=== PATIENT | female | born 2000 | race Caucasian/White ===

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

== ENCOUNTER 2022-01-02 11:27 | Emergency (ER) | payer OTHER, MEDICAID, SELFPAY ==
[2022-01-02 11:28] VITALS: BP 170/110; PULSE 88; RESP 14; TEMP 37.3; O2SAT 98; BMI 40.3
--- NOTE | 2022-01-02 12:14 | ED_ITS ---
HPI - Female Genitourinary <SONDRA Rausch - Last Filed: 01/02/22 15:33> General Chief complaint: Vaginal Bleeding Stated complaint: Heavy cramping/ vaginal bleeding Time Seen by Provider: 01/02/22 12:02 Source: patient Mode of arrival: Ambulatory History of Present Illness HPI Narrative: 21-year-old female presents to the emergency department complaining of vaginal bleeding which started this morning and she finished her menses 7 days ago. Patient is just getting over a viral illness, likely COVID without testing positive, and continues to have some symptoms including congestion, cough, some fatigue. She is not on any control, is sexually active, does not have a woman's health provider. She states she goes to the walk-in clinic in [place] but has to wait a long time, and she only goes there when she needs plan B. Patient denies any vaginal itching, foul odor, or vaginal pain. Related Data Previous Rx's Medication Instructions Recorded clindamycin HCl 150 mg capsule 450 mg PO TID #63 cap 04/03/21 ibuprofen 800 mg tablet 800 mg PO Q8H PRN #20 tab 04/03/21 fluticasone propionate 50 1 spray INTRANASAL DAILY #16 g 08/31/21 mcg/actuation nasal spray,suspension (Flonase Allergy Relief) ondansetron HCl 4 mg tablet 4 mg PO Q6-8H #10 tab 08/31/21 (Zofran) ondansetron HCl 4 mg tablet 4 mg PO Q6-8H #7 tab 08/31/21 (Zofran) nitrofurantoin 100 mg PO BID #14 cap 11/19/21 monohydrate/macrocrystals 100 mg capsule (Macrobid) dextromethorphan-guaifenesin 5 10 ml PO Q8H PRN #118 ml 12/24/21 mg-100 mg/5 mL oral liquid (Robitussin Cough-Chest Congestion DM) Allergies Allergy/AdvReac Type Severity Reaction Status Date / Time Penicillins [PENICILLINS] Allergy Unknown Anaphylaxis Verified 01/02/22 11:33 CILLINS Allergy Unknown Cough Uncoded 12/22/21 02:28 Review of Systems <SONDRA Rausch - Last Filed: 01/02/22 15:33> Review of Systems Narrative: General: denies fever, chills, malaise, sweats, fatigue Head/Neck: denies headache, neck pain, dizziness Eyes: denies visual changes, eye pain Cardio: denies chest pain, palpitations, edema Respiratory: denies dyspnea, cough, orthopnea GI: denies abdominal pain, nausea, vomiting, or diarrhea : denies dysuria, hematuria, urinary retention, frequency or incontinence, endorses brown vaginal bleeding today with menses 1 week ago. MSK: denies joint pain, muscle weakness Skin: denies rash, itching, skin lesions or other Neuro: denies numbness, tingling Patient History <SONDRA Rausch - Last Filed: 01/02/22 15:33> Medical History Healthy adolescent Nephrolithiasis Surgical History No history of previous surgery tobacco type: cigarettes and vaping alcohol intake frequency: holidays/special occasions only Substance Use Type: marijuana Exam <SONDRA Rausch - Last Filed: 01/02/22 15:33> Narrative Exam Narrative: Independently reviewed vitals signs and nursing notes. General: Cooperative, comfortable, in no acute distress, well developed and well groomed Head/Neck: Normal visual inspection and supple, atraumatic, no JVD or lymphadenopathy. Normal facial exam Eyes: Pupils equal round and reactive, EOMI, conjunctiva normal, no scleral icterus or injections Nose: External nose normal, nares patent, no rhinorrhea, without purulent drainage Mouth/Throat: uvula midline, moist mucus membranes Cardio: Regular rate and rhythm, no peripheral edema, warm extremities Respiratory: Normal respiratory effort, able to speak in complete sentences without audible wheezing, stridor, or rales. No retractions. GI: Abdomen soft, nontender to palpation x4 quadrants, nondistended, no masses or exquisite tenderness with exam, no flank tenderness MSK: Moves all extremities, neurovascularly intact Skin: Normal capillary refill, no rash Neuro: Normal speech and cognition, normal gait, A&O x3, tone normal, moves all extremities Psych: Mental status is grossly normal, speech is clear, congruent mood, normal affect Initial Vital Signs Initial Vital Signs: Vital Signs Temperature 99.1 F 01/02/22 11:28 Pulse Rate 88 01/02/22 11:28 Respiratory Rate 14 01/02/22 11:28 Blood Pressure 170/110 H 01/02/22 11:28 Pulse Oximetry 98 01/02/22 11:28 <Elvis Edouard DO - Last Filed: 01/02/22 16:23> Initial Vital Signs Initial Vital Signs: Vital Signs Temperature 99.1 F 01/02/22 11:28 Pulse Rate 88 01/02/22 11:28 Respiratory Rate 14 01/02/22 11:28 Blood Pressure 170/110 H 01/02/22 11:28 Pulse Oximetry 98 01/02/22 11:28 Course <SONDRA aRusch - Last Filed: 01/02/22 15:33> Orders Ordered: ED Orders 01/02/22 12:05 Urinalysis and Microscopic Stat Vital Signs Vital signs: Vital Signs - 8 hr 01/02/22 11:28 Temperature 99.1 F Pulse Rate 88 Respiratory Rate 14 Blood Pressure 170/110 H Pulse Oximetry 98 <Elvis Edouard DO - Last Filed: 01/02/22 16:23> Orders Ordered: ED Orders 01/02/22 12:05 Urinalysis and Microscopic Stat Vital Signs Vital signs: Vital Signs - 8 hr 01/02/22 11:28 Temperature 99.1 F Pulse Rate 88 Respiratory Rate 14 Blood Pressure 170/110 H Pulse Oximetry 98 MDM - Female Genitourinary <SONDRA Rausch - Last Filed: 01/02/22 15:33> MDM Narrative Medical decision making narrative: 21-year-old female presents emergency department with complaint of brown vaginal bleeding today with normal menstrual cycle ending 1 week ago. Patient denies any foul odor, vaginal pain, itching or bright red blood. Patient is not on control and is sexually active. Patient was seen 2 times earlier this month for a viral illness, discussed irregular cycle may be due to illness, this could be old blood because it was dark brown. Patient does not have women's health care provider or primary care provider. She was given a referral to [facility] and instructed to establish care and discuss her goals for family planning. Patient occasionally uses plan B she says but does not take any control. Urine and UA completed, was negative, UA was negative for signs of infection, leukocytes, blood or other. Instructed patient to stay hydrated, eat a variety of foods, keep track of her menstrual cycle, and follow-up with primary care. She declined the need for pain medication and was instructed to use ibuprofen and/or Tylenol as needed for her menstrual cramping. Patient is appropriate and amenable to discharge home. Vital signs are stable on repeat examination is unremarkable. Patient has been informed of results. Patient has been given strict return to ER precautions for any new or worsening symptoms. Patient understands to follow up closely with outpatient providers as instructed. Patient understands plan and agrees to discharge home. All questions and concerns answered at this time. Discharge Plan Departure Patient Disposition: Home Clinical Impression: Irregular menstrual bleeding Instructions: DI for Dysmenorrhea, DI for Menorrhagia, DI for Vaginal Bleeding Activity Restrictions/Additional Instructions: *You have been diagnosed with vaginal bleeding outside your normal menstrual cycle. This happens sometimes after illness, or if you have polycystic ovaries, endometriosis, or sometimes infection. Since you do not have any signs of infection at this time, this is likely due to your recent illness. Your test was negative. Please follow-up with [facility] and establish care with Dr. Isabel or Dr. Washington for [facility] care, or you may make an appointment with any physician taking new patients for [facility]. Please call [phone] to make an appointment. Please take ibuprofen every 6 hours as needed for your menstrual cramping. Please stay hydrated and drink fluids with electrolytes in them. Light activity has shown to help menstrual cramping pain. I hope you feel better soon, please follow-up with primary care. *What to do: *Please continue to take your regular medications as directed. [ ] New medication prescriptions sent to your pharmacy: [ ] [ ] New medication written as a paper prescription [x ] No new medications given *Please follow up with your primary care provider in 2-3 days, call for an appointment. Let them know you were seen in the Emergency Department and that we ask that you be seen in follow up. We will electronically transmit a record of today's note if your PCP is in our system *If you do not have a primary care provider please contact the [facility] Resource line at [phone]. They will ask some questions about your medical history and help get you set up with a doctor in the community. *Return to Emergency Department if you should have any new, worsening or concerning symptoms, such as [fever greater than 101F, chills, worsening pain, persistent vomiting or other bothersome symptoms] Prescriptions: No Action ibuprofen 800 mg tablet 800 mg PO Q8H PRN (Reason: pain) Qty: 20 0RF clindamycin HCl 150 mg capsule 450 mg PO TID Qty: 63 0RF nitrofurantoin monohyd/m-cryst [Macrobid] 100 mg capsule 100 mg PO BID Qty: 14 0RF Rx Instructions: must administer with a meal/food Robitussin Cough-Chest Steven DM 5-100 mg/5 mL liquid 10 ml PO Q8H PRN (Reason: cough) Qty: 118 0RF ondansetron HCl [Zofran] 4 mg tablet 4 mg PO Q6-8H Qty: 7 0RF fluticasone propionate [Flonase Allergy Relief] 50 mcg/actuation spray,suspension 1 spray intranasal DAILY Qty: 16 0RF Rx Instructions: administer into each nostril ondansetron HCl [Zofran] 4 mg tablet 4 mg PO Q6-8H Qty: 10 0RF Referrals: Beth Isabel MD [Physician] - <Elvis Edouard, - Last Filed: 01/02/22 16:23> [facility] Dr Edouard Co-Sign Statement: I was available for consultation during this patient's emergency department visit. This chart is signed by myself for administrative purposes only. I did not have direct contact with this patient during this visit. They were seen independently by the APC.
== END 2022-01-02 12:36 | disposition home or self-care (01) ==
PROVIDERS: Emergency Provider Nurse Practitioner Critical Care Medicine
DX: N93.9 Abnormal uterine and vaginal bleeding, unspecified (principal)
CPT/HCPCS: 99281

== ENCOUNTER 2022-01-08 18:33 | Emergency (ER) | payer OTHER, MEDICAID, SELFPAY ==
[2022-01-08 19:05] VITALS: BP 151/89; PULSE 94; RESP 14; TEMP 36.9; O2SAT 100; BMI 40.3
[2022-01-08] MEDS: TETRACAINE/BENZOCAINE/BUTAMBEN (CETACAINE) BOTTLE 1 SPRAY TOP (20:01)
--- NOTE | 2022-01-08 20:17 | ED_ITS ---
HPI - URI/Sore Throat <Patti Mcghee, [facility] - Last Filed: 01/08/22 20:25> General Chief Complaint: Upper Respiratory Symptoms Stated Complaint: Something lodged in throat x14 days Time Seen by Provider: 01/08/22 18:55 Source: patient Mode of arrival: Ambulatory History of Present Illness HPI Narrative: 21-year-old female presents to the emergency department complaining of foreign body sensation in her throat for 13 days. She denies any known foreign body or what it could be but states the sensation has not improved and continues to be bothersome. She denies any sore throat, shortness of breath, wheezing, fever, vomiting, noisy breathing. She endorses that she had salmon approximately 10 days ago but does not think a bone could be stuck in there, denies any other bone possibilities that could be in her throat. She states that she is trying to find a primary care provider and has tried [address], [facility], and [place] and she is having difficulty find a primary care provider who accepts her insurance. She states she has [employer] insurance with [employer]. Related Data Previous Rx's Medication Instructions Recorded clindamycin HCl 150 mg capsule 450 mg PO TID #63 cap 04/03/21 ibuprofen 800 mg tablet 800 mg PO Q8H PRN #20 tab 04/03/21 fluticasone propionate 50 1 spray INTRANASAL DAILY #16 g 08/31/21 mcg/actuation nasal spray,suspension (Flonase Allergy Relief) ondansetron HCl 4 mg tablet 4 mg PO Q6-8H #10 tab 08/31/21 (Zofran) ondansetron HCl 4 mg tablet 4 mg PO Q6-8H #7 tab 08/31/21 (Zofran) nitrofurantoin 100 mg PO BID #14 cap 11/19/21 monohydrate/macrocrystals 100 mg capsule (Macrobid) dextromethorphan-guaifenesin 5 10 ml PO Q8H PRN #118 ml 12/24/21 mg-100 mg/5 mL oral liquid (Robitussin Cough-Chest Congestion DM) Allergies Allergy/AdvReac Type Severity Reaction Status Date / Time Penicillins [PENICILLINS] Allergy Unknown Anaphylaxis Verified 01/08/22 19:10 CILLINS Allergy Unknown Cough Uncoded 12/22/21 02:28 Review of Systems <SONDRA Rausch - Last Filed: 01/08/22 20:25> Review of Systems Narrative: General: denies fever, chills, malaise, sweats, fatigue Head/Neck: denies headache, neck pain, dizziness, endorses foreign body sensation in throat Eyes: denies visual changes, eye pain Cardio: denies chest pain, palpitations, edema Respiratory: denies dyspnea, cough, orthopnea GI: denies abdominal pain, nausea, vomiting, or diarrhea : denies dysuria, hematuria, urinary retention, frequency or incontinence MSK: denies joint pain, muscle weakness Skin: denies rash, itching, skin lesions or other Neuro: denies numbness, tingling Patient History <SONDRA Rausch - Last Filed: 01/08/22 20:25> Medical History Healthy adolescent Nephrolithiasis Surgical History No history of previous surgery Social History Smoking Status: Current every day smoker Smoking Status: Current every day smoker tobacco type: cigarettes and vaping alcohol intake frequency: holidays/special occasions only Substance Use Type: marijuana Exam <SONDRA Rausch - Last Filed: 01/08/22 20:25> Narrative Exam Narrative: Independently reviewed vitals signs and nursing notes. General: Cooperative, comfortable, in no acute distress, well developed and well groomed Head/Neck: Normal visual inspection and supple, atraumatic. No submental or anterior cervical tenderness, no palpated abscess or lymphadenopathy. Eyes: Pupils equal round and reactive, EOMI, conjunctiva normal, no scleral icterus or injections Nose: External nose normal, nares patent, no rhinorrhea, without purulent drainage Mouth/Throat: uvula midline, moist mucus membranes Cardio: Regular rate and rhythm, no peripheral edema, warm extremities Respiratory: Normal respiratory effort, able to speak in complete sentences without audible wheezing, stridor, or rales. No retractions. GI: Abdomen soft MSK: Moves all extremities, neurovascularly intact Skin: Normal capillary refill, no rash Neuro: Normal speech and cognition, normal gait, A&O x3, tone normal, moves all extremities Psych: Mental status is grossly normal, speech is clear, congruent mood, normal affect Initial Vital Signs Initial Vital Signs: Vital Signs Temperature 98.4 F 01/08/22 19:05 Pulse Rate 94 H 01/08/22 19:05 Respiratory Rate 14 01/08/22 19:05 Blood Pressure 151/89 H 01/08/22 19:05 Pulse Oximetry 100 01/08/22 19:05 <Bette Nguyen MD - Last Filed: 01/09/22 00:33> Narrative Exam Narrative: Independently reviewed vitals signs and nursing notes. General: Cooperative, comfortable, in no acute distress, well developed and well groomed Head/Neck: Normal visual inspection and supple, atraumatic. No submental or anterior cervical tenderness, no palpated abscess or lymphadenopathy. Eyes: Pupils equal round and reactive, EOMI, conjunctiva normal, no scleral icterus or injections Nose: External nose normal, nares patent, no rhinorrhea, without purulent drainage Mouth/Throat: uvula midline, moist mucus membranes Cardio: Regular rate and rhythm, no peripheral edema, warm extremities Respiratory: Normal respiratory effort, able to speak in complete sentences without audible wheezing, stridor, or rales. No retractions. GI: Abdomen soft MSK: Moves all extremities, neurovascularly intact Skin: Normal capillary refill, no rash Neuro: Normal speech and cognition, normal gait, A&O x3, tone normal, moves all extremities Psych: Mental status is grossly normal, speech is clear, congruent mood, normal affect [place] scope was used to visualize the posterior pharynx and larynx without any foreign body visible, uvula was midline, no tonsillar adenopathy or exudate, posterior pharynx was moist, not erythematous, without lesion or edema Initial Vital Signs Initial Vital Signs: Vital Signs Temperature 98.4 F 01/08/22 19:05 Pulse Rate 94 H 01/08/22 19:05 Respiratory Rate 14 01/08/22 19:05 Blood Pressure 151/89 H 01/08/22 19:05 Pulse Oximetry 100 01/08/22 19:05 Course <SONDRA Rausch - Last Filed: 01/08/22 20:25> Orders Ordered: Discontinued Medications Benzocaine/Butamben/Tetracaine HCl (Tetracaine/Benzocaine/Butamben (Cetacaine) Bottle) 1 spray TOP NOW ONE Stop: 01/08/22 19:29 Last Admin: 01/08/22 20:01 Dose: 1 spray Documented by: BTONER Vital Signs Vital signs: Vital Signs - 8 hr 01/08/22 19:05 Temperature 98.4 F Pulse Rate 94 H Respiratory Rate 14 Blood Pressure 151/89 H Pulse Oximetry 100 <Bette Nguyen MD - Last Filed: 01/09/22 00:33> Orders Ordered: Discontinued Medications Benzocaine/Butamben/Tetracaine HCl (Tetracaine/Benzocaine/Butamben (Cetacaine) Bottle) 1 spray TOP NOW ONE Stop: 01/08/22 19:29 Last Admin: 01/08/22 20:01 Dose: 1 spray Documented by: BTONER Vital Signs Vital signs: Vital Signs - 8 hr 01/08/22 19:05 Temperature 98.4 F Pulse Rate 94 H Respiratory Rate 14 Blood Pressure 151/89 H Pulse Oximetry 100 MDM - URI/Sore Throat <SONDRA Rausch - Last Filed: 01/08/22 20:25> MDM Narrative Medical decision making narrative: 20-year-old female presents to the emergency department with chief complaint of foreign body sensation in her throat for 13 days. Patient has had multiple visits to the emergency department over the last couple of months because she is having difficulty finding a primary care provider. Patient endorses history of depression in her family and she also has had depressive symptoms in the past. [place] scope was used to visualize the posterior pharynx and larynx without any foreign body visible, uvula was midline, no tonsillar adenopathy or exudate, posterior pharynx was moist, not erythematous, without lesion or edema. Discussion with patient about history of depression and family history of depression and assessed if patient is interested in any medication for this while she is looking for a primary care provider. Patient states that she we would like to think about that and she was given a referral to [facility] for primary care. Patient is pleasant, is appreciative of this, no dangerous pathology was found today on exam. Patient was reassured, recommend tea with honey, liquids, ibuprofen or Tylenol as needed for pain. She has an upcoming appointment with [facility] and will be trying to make an appointment with primary care soon. Patient denies any homicidal or suicidal ideation or intent to harm self. Patient is appropriate and amenable to discharge home. Vital signs are stable on repeat examination is unremarkable. Patient has been informed of results. Patient has been given strict return to ER precautions for any new or worsening symptoms. Patient understands to follow up closely with outpatient providers as instructed. Patient understands plan and agrees to discharge home. All questions and concerns answered at this time. Discharge Plan Departure Patient Disposition: Home Clinical Impression: Globus hystericus Activity Restrictions/Additional Instructions: Janneth, thank you for trusting us with your care, thank you for continuing to try to help take care of yourself the best that you are able. The emergency department is always here if you need care. Please call [phone] and asked to establish a primary care provider. At that time it may be good to discuss your mental health and how you are doing at that time. Medication may help reduce some of the high, highs and low, lows so that you can get back in control. He can try honey in your tea which may help that feeling in your throat, practice relaxation therapy, try ibuprofen and see if it helps reduce that sensation as well. Luckily, there is nothing dangerous in your throat. I hope you feel better soon, thank you for coming in. It was nice to see you again and you look well. *What to do: *Please continue to take your regular medications as directed. [ ] New medication prescriptions sent to your pharmacy: [ ] [ ] New medication written as a paper prescription [ ] No new medications given *Please follow up with your primary care provider in 2-3 days, call for an appointment. Let them know you were seen in the Emergency Department and that we ask that you be seen in follow up. We will electronically transmit a record of today's note if your PCP is in our system *If you do not have a primary care provider please contact the [facility] Resource line at (xxxx) see above. They will ask some questions about your medical history and help get you set up with a doctor in the community. *Return to Emergency Department if you should have any new, worsening or concerning symptoms, such as [fever greater than 101F, chills, worsening pain, persistent vomiting or other bothersome symptoms] Prescriptions: No Action ibuprofen 800 mg tablet 800 mg PO Q8H PRN (Reason: pain) Qty: 20 0RF clindamycin HCl 150 mg capsule 450 mg PO TID Qty: 63 0RF nitrofurantoin monohyd/m-cryst [Macrobid] 100 mg capsule 100 mg PO BID Qty: 14 0RF Rx Instructions: must administer with a meal/food Robitussin Cough-Chest Steven DM 5-100 mg/5 mL liquid 10 ml PO Q8H PRN (Reason: cough) Qty: 118 0RF ondansetron HCl [Zofran] 4 mg tablet 4 mg PO Q6-8H Qty: 7 0RF fluticasone propionate [Flonase Allergy Relief] 50 mcg/actuation spray,suspension 1 spray intranasal DAILY Qty: 16 0RF Rx Instructions: administer into each nostril ondansetron HCl [Zofran] 4 mg tablet 4 mg PO Q6-8H Qty: 10 0RF <Bette Nguyen MD - Last Filed: 01/09/22 00:33> Cosign ED Att[facility]: I was immediately available in the department for consultation throughout this patient's visit. I agree with documentation as above. Bette Nguyen MD
== END 2022-01-08 20:00 | disposition home or self-care (01) ==
PROVIDERS: Emergency Provider Nurse Practitioner Critical Care Medicine
DX: F45.8 Other somatoform disorders (principal)
CPT/HCPCS: 99282; 99283

== ENCOUNTER 2022-02-10 13:55 | Emergency (ER) | payer OTHER, MEDICAID, SELFPAY ==
[2022-02-10 14:21] VITALS: BP 186/110; PULSE 77; RESP 17; TEMP 36.8; O2SAT 98; BMI 40.3
[2022-02-10 16:31] LABS: Appearance Urine UA SL CLOUDY; Bilirubin Urine UA NEGATIVE (NEGATIVE); Color Urine UA YELLOW; Glucose Urine UA NEGATIVE (Negative); Ketones Urine UA NEGATIVE (NEGATIVE); Leukocyte Esterase Urine UA 2+ (NEGATIVE); Nitrite Urine UA NEGATIVE (Negative); Occult Blood Urine UA 3+ (Negative); Protein Urine UA NEGATIVE (Negative); Specific Gravity Urine UA <=1.005 (1.000-1.035); Urobilinogen Urine UA 0.2 E.U./dL (0.2)
[2022-02-10 16:46] LABS: Bacteria Urine Few (2-10); Culture Indicated Urine Specimen Cultured; RBC Urine 1-5/HPF (0-5/HPF); Squamous Epithelial Cell Urine 1-5 /HPF (0-5/HPF); Transitional Epi Cells Urine 1-5/HPF (0-5/HPF); Urine Comments FEW CLUE CELLS; WBC Urine 10-30/HPF (0-5/HPF)
--- NOTE | 2022-02-10 17:28 | ED.NAVMDI ---
HPI - Nausea/Vomiting/Diarrhea <SONDRA Rausch - Last Filed: 02/10/22 20:54> General Chief complaint: Nausea/Vomiting/Diarrhea Stated complaint: Dizzy, nauseas, low blood sugar Time Seen by Provider: 02/10/22 17:28 Source: patient Mode of arrival: Ambulatory History of Present Illness HPI Narrative: 21-year-old female presents to the emergency department complaining of dysuria, abdominal discomfort, UTI for approximately 2 months she states. Patient has been seen in the emergency department multiple times, and 4 times by myself for various complaints. Patient is in the process of establishing a primary care provider and states she has the information and will be scheduling appointment soon. Patient is low income, and was recently seen in the emergency department for globus hystericus, she states she still having difficulty swallowing pills and was waiting until this coming Thursday when she gets paid by some yogurt so that she could grind her pills and be able to swallow them. Patient states that she has nausea without vomiting, states that she has been feeling poorly for the last 1-2 months. She denies any fever, she denies any blood in her urine or her stool, she denies any changes to her stool. She denies any abdominal pain. Related Data Previous Rx's Medication Instructions Recorded ondansetron HCl 4 mg tablet 4 mg PO Q6-8H #7 tab 08/31/21 (Zofran) nitrofurantoin 100 mg PO BID #14 cap 11/19/21 monohydrate/macrocrystals 100 mg capsule (Macrobid) metronidazole 500 mg tablet 500 mg PO BID 7 Days #14 tab 02/10/22 sulfamethoxazole 800 1 tab PO BID 7 Days #14 tab 02/10/22 mg-trimethoprim 160 mg tablet (Bactrim DS) Allergies Allergy/AdvReac Type Severity Reaction Status Date / Time Penicillins [PENICILLINS] Allergy Unknown Anaphylaxis Verified 01/08/22 19:10 CILLINS Allergy Unknown Cough Uncoded 12/22/21 02:28 Review of Systems <SONDRA Rausch - Last Filed: 02/10/22 20:54> Review of Systems Narrative: General: denies fever, chills, malaise, sweats, fatigue Head/Neck: denies headache, neck pain, dizziness Eyes: denies visual changes, eye pain Cardio: denies chest pain, palpitations, edema Respiratory: denies dyspnea, cough, orthopnea GI: denies abdominal pain, nausea, vomiting, or diarrhea : Endorses dysuria, and vaginal pain without hematuria, urinary retention, frequency or incontinence MSK: denies joint pain, muscle weakness Skin: denies rash, itching, skin lesions or other Neuro: denies numbness, tingling Patient History <SONDRA Rausch - Last Filed: 02/10/22 20:54> Medical History Healthy adolescent Nephrolithiasis Surgical History No history of previous surgery Social History Smoking Status: Current every day smoker Smoking Status: Current every day smoker tobacco type: cigarettes and vaping alcohol intake frequency: holidays/special occasions only Substance Use Type: does not use Exam <SONDRA Rausch - Last Filed: 02/10/22 20:54> Narrative Exam Narrative: Independently reviewed vitals signs and nursing notes. General: cooperative, comfortable, in no acute distress, well developed and well groomed, obese Head: atraumatic, symmetrical facial expressions Neck: supple, atraumatic, without lymphadenopathy. Eyes: pupils equal round and reactive, EOMI, conjunctiva normal Nose: nares patent, no rhinorrhea Mouth/Throat: uvula midline, moist mucus membranes Cardiovascular: regular rate and rhythm, no peripheral edema, warm extremities Respiratory: normal effort, able to speak in complete sentences, no audible wheezing, stridor, or rales. No retractions or tachypnea. GI: abdomen soft, nontender to palpation, nondistended, no masses, no exquisite tenderness with exam, without guarding or rebound. MSK: moves all extremities, ambulatory w/steady gait, neurovascularly intact, no weakness Skin: brisk capillary refill, no rash, no erythema Neuro: normal speech and cognition, A&O x3, normal tone Psych: mental status is grossly normal, congruent mood, normal affect, pleasant and cooperative Initial Vital Signs Initial Vital Signs: Vital Signs Temperature 98.3 F 02/10/22 14:21 Pulse Rate 77 02/10/22 14:21 Respiratory Rate 17 02/10/22 14:21 Blood Pressure 186/110 H 02/10/22 14:21 Pulse Oximetry 98 02/10/22 14:21 <Amanda Salcido DO - Last Filed: 02/11/22 07:57> Initial Vital Signs Initial Vital Signs: Vital Signs Temperature 98.3 F 02/10/22 14:21 Pulse Rate 77 02/10/22 14:21 Respiratory Rate 17 02/10/22 14:21 Blood Pressure 186/110 H 02/10/22 14:21 Pulse Oximetry 98 02/10/22 14:21 Course <EMILY RauschP - Last Filed: 02/10/22 20:54> Orders Ordered: Discontinued Medications Metronidazole (Metronidazole 500 Mg Tablet) 500 mg PO NOW ONE Stop: 02/10/22 17:51 Last Admin: 02/10/22 18:00 Dose: 500 mg Documented by: SIERRA Trimethoprim/Sulfamethoxazole (Trimeth/Sulfa 160/800 (Ds) Tablet) 1 tab PO NOW ONE Stop: 02/10/22 17:38 Last Admin: 02/10/22 18:00 Dose: 1 tab Documented by: SIERRA Vital Signs Vital signs: Vital Signs - 8 hr 02/10/22 14:21 02/10/22 18:30 Temperature 98.3 F Pulse Rate 77 72 Respiratory Rate 17 16 Blood Pressure 186/110 H 165/106 H Pulse Oximetry 98 100 <Amanda Salcido DO - Last Filed: 02/11/22 07:57> Orders Ordered: Discontinued Medications Metronidazole (Metronidazole 500 Mg Tablet) 500 mg PO NOW ONE Stop: 02/10/22 17:51 Last Admin: 02/10/22 18:00 Dose: 500 mg Documented by: SIERRA Trimethoprim/Sulfamethoxazole (Trimeth/Sulfa 160/800 (Ds) Tablet) 1 tab PO NOW ONE Stop: 02/10/22 17:38 Last Admin: 02/10/22 18:00 Dose: 1 tab Documented by: SIERRA Vital Signs Vital signs: Vital Signs - 8 hr 02/10/22 14:21 02/10/22 18:30 Temperature 98.3 F Pulse Rate 77 72 Respiratory Rate 17 16 Blood Pressure 186/110 H 165/106 H Pulse Oximetry 98 100 MDM - Nausea/Vomiting/Diarrhea <Patti Mcghee, [facility] - Last Filed: 02/10/22 20:54> Lab Data Labs: Lab Results 02/10/22 Range/Units 15:00 Urine Color Yellow Urine Appearance Sl cloudy Urine pH 5.0 (4.5-8.0) Ur Specific [place] <=1.005 (1.000-1.035) Urine Protein Negative (Negative) Urine Glucose (UA) Negative (Negative) g/dL Urine Ketones Negative (NEGATIVE) Urine Occult Blood 3+ H (Negative) Urine Nitrate Negative (Negative) Urine Bilirubin Negative (NEGATIVE) Urine Urobilinogen 0.2 (0.2) E.U./dL Ur Leukocyte Esterase 2+ H (NEGATIVE) Urine RBC 1-5/hpf D (0-5/HPF) Urine WBC 10-30/hpf H (0-5/HPF) Ur Squamous Epith Cells 1-5 /hpf (0-5/HPF) Ur Transition Epith Cell 1-5/hpf (0-5/HPF) Urine Bacteria Few (2-10) H (None) Ur Culture Indicated? Specimen cultured Micro UA Comment Few clue cells Point of Care Testing Test Results Negative Glucose POC 76 MDM Narrative Medical decision making narrative: This is a 21-year-old female who presents to the emergency department for ongoing dysuria, nausea, and feeling poorly for what she states is a UTI for the last 2 months., it was found the patient grew group B strep from her UA in November. Patient has not completed any antibiotics recently due to financial reasons and her recent diagnosis of globus hystericus making it difficult for her to swallow pills. She has not established primary care yet although she states she has everything at home now and will be making an appointment following this visit. Patient states she does not have money to buy yogurt to help her swallow her pills so she has not taken them yet. Her UA today showed 2+ leukocyte esterase, blood, and microscopy showed white blood cells, bacteria, with clue cells. Discussed with patient the need to treat her for UTI and bacterial vaginosis. Instructed her to get a pill computer numerical control grinder, and grind her pills in liquid if she needs to. Patient was prescribed Flagyl and Bactrim., she is allergic to penicillins with anaphylaxis, cephalosporins were avoided. Patient Is appropriate and amenable to discharge home. Vital signs are stable on repeat examination is unremarkable. Patient has been informed of results. Patient has been given strict return to ER precautions for any new or worsening symptoms. Patient understands to follow up closely with outpatient providers as instructed. Patient understands plan and agrees to discharge home. All questions and concerns answered at this time. <Amanda Omari, DO - Last Filed: 02/11/22 07:57> Lab Data Labs: Lab Results 02/10/22 Range/Units 15:00 Urine Color Yellow Urine Appearance Sl cloudy Urine pH 5.0 (4.5-8.0) Ur Specific [place] <=1.005 (1.000-1.035) Urine Protein Negative (Negative) Urine Glucose (UA) Negative (Negative) g/dL Urine Ketones Negative (NEGATIVE) Urine Occult Blood 3+ H (Negative) Urine Nitrate Negative (Negative) Urine Bilirubin Negative (NEGATIVE) Urine Urobilinogen 0.2 (0.2) E.U./dL Ur Leukocyte Esterase 2+ H (NEGATIVE) Urine RBC 1-5/hpf D (0-5/HPF) Urine WBC 10-30/hpf H (0-5/HPF) Ur Squamous Epith Cells 1-5 /hpf (0-5/HPF) Ur Transition Epith Cell 1-5/hpf (0-5/HPF) Urine Bacteria Few (2-10) H (None) Ur Culture Indicated? Specimen cultured Micro UA Comment Few clue cells Point of Care Testing Test Results Negative Glucose POC 76 Discharge Plan Departure Patient Disposition: Home Clinical Impression: Bacterial vaginosis UTI (urinary tract infection) Qualifiers: Urinary tract infection type: acute cystitis Hematuria presence: with hematuria Qualified Code(s): N30.01 - Acute cystitis with hematuria Instructions: Bacterial Vaginosis, DI for Urinary Tract Infection (UTI) Activity Restrictions/Additional Instructions: *You have been diagnosed with a UTI and a history of group B strep bacteria growing in your urine. You also have a bacterial vaginosis infection which is treated with a different antibiotic. I have prescribed for you to different antibiotics that will treat your urine infection and your vaginal infection. This is likely why you are not feeling well. Please take this for the next 7 days morning and night. Please buy a pill computer numerical control grinder and grind each pill, and take it in soft food or juice to make it easier to swallow. Please prioritize getting into your new primary care provider within the next week to follow-up on this UTI to see if it is better not. You can get very sick if you do not treat this. Please crush or grind your pills, and dissolve them or get them small enough for you to swallow them okay. Thank you for trusting us with your care. Please drink plenty of fluids so that you do not become dehydrated. I hope you feel better soon. *What to do: *Please continue to take your regular medications as directed. [ x] New medication prescriptions sent to your pharmacy: [ ] [ ] New medication written as a paper prescription [ ] No new medications given *Please follow up with your primary care provider in 2-3 days, call for an appointment. Let them know you were seen in the Emergency Department and that we asked that you be seen for follow-up. We will electronically transmit a record of today's note if your PCP is in our system *If you do not have a primary care provider please contact [phone] to establish care with one of the [facility] primary care providers. *Return to Emergency Department if you should have any new, worsening or concerning symptoms, such as [fever greater than 101F, chills, worsening pain, persistent vomiting or other bothersome symptoms] Prescriptions: New sulfamethoxazole-trimethoprim [Bactrim DS] 800-160 mg tablet 1 tab PO BID 7 Days Qty: 14 0RF metronidazole 500 mg tablet 500 mg PO BID 7 Days Qty: 14 0RF No Action nitrofurantoin monohyd/m-cryst [Macrobid] 100 mg capsule 100 mg PO BID Qty: 14 0RF Rx Instructions: must administer with a meal/food ondansetron HCl [Zofran] 4 mg tablet 4 mg PO Q6-8H Qty: 7 0RF <Amanda Salcido, DO - Last Filed: 02/11/22 07:57> Cosign ED Attending Derekature Attestation: I was immediately available in the department for consultation. Documentation has been reviewed. I agree with assessment and plan.
[2022-02-10] MEDS: TRIMETH/SULFA 160/800 (DS) TABLET 1 TAB PO (18:00)
[2022-02-10] MEDS: metroNIDAZOLE 500 MG TABLET PO (18:00)
[2022-02-10 18:30] VITALS: BP 165/106; PULSE 72; RESP 16; O2SAT 100
== END 2022-02-10 18:31 | disposition home or self-care (01) ==
PROVIDERS: Emergency Medicine; Emergency Provider Nurse Practitioner Critical Care Medicine
DX: N30.01 Acute cystitis with hematuria (principal); N76.0 Acute vaginitis
CPT/HCPCS: 81001; 81025; 82962; 87086; 99283

== ENCOUNTER 2022-03-21 23:41 | Emergency (ER) | payer OTHER, MEDICAID, SELFPAY ==
[2022-03-21 23:45] VITALS: PULSE 90; RESP 24; TEMP 36.4; O2SAT 100; BMI 38.7
--- NOTE | 2022-03-22 01:37 | ED.SKABFB ---
HPI - Skin/Abscess/Foreign Bdy General Chief complaint: Skin/Abscess/Foreign Body Stated complaint: rt forarm pain/swollen/insect bite? x1 hour Time Seen by Provider: 03/22/22 01:21 Source: patient Mode of arrival: Ambulatory Limitations: no limitations History of Present Illness HPI narrative: Patient is a 22-year-old female here for evaluation of a sharp pain and redness to her forearm. She states that it was a fairly sudden onset that occurred 1 hour ago. She does not know specifically what happened to the area. She is unsure if she was bit/stung by an insect. Some redness developed. She reports no other associated symptoms. She has been icing the area since arrival here to the ER. Related Data Previous Rx's Medication Instructions Recorded ondansetron HCl 4 mg tablet 4 mg PO Q6-8H #7 tab 08/31/21 (Zofran) nitrofurantoin 100 mg PO BID #14 cap 11/19/21 monohydrate/macrocrystals 100 mg capsule (Macrobid) Allergies Allergy/AdvReac Type Severity Reaction Status Date / Time Penicillins [PENICILLINS] Allergy Unknown Anaphylaxis Verified 01/08/22 19:10 CILLINS Allergy Unknown Cough Uncoded 12/22/21 02:28 Review of Systems Constitutional Constitutional: Denies fever(s) Musculoskeletal Musculoskeletal: Reports system reviewed and no additional complaints, except as documented and Reports as per HPI Integumentary/Breasts Skin/Breast: Reports system reviewed and no additional complaints, except as documented and Reports as per HPI Hematologic/Lymphatic On Anticoagulants: No Allergic/Immunologic Allergic/Immunologic: Reports system reviewed and no additional complaints, except as documented and Reports as per HPI Patient History Medical History Healthy adolescent Nephrolithiasis Surgical History No history of previous surgery Social History Smoking Status: Current every day smoker Smoking Status: Current every day smoker tobacco type: cigarettes and vaping alcohol intake frequency: holidays/special occasions only Substance Use Type: does not use Exam Initial Vital Signs Initial Vital Signs: Vital Signs Temperature 97.6 F 03/21/22 23:45 Pulse Rate 90 03/21/22 23:45 Respiratory Rate 24 03/21/22 23:45 Pulse Oximetry 100 03/21/22 23:45 Const General: cooperative and healthy appearing Skin Other: Patient with a small area of redness on the volar aspect of the forearm. There is no urticaria. There are no vesicles. No pustules. Extrem Other: Tenderness to palpation volar aspect of right forearm Course Vital Signs Vital signs: Vital Signs - 8 hr 03/21/22 23:45 Temperature 97.6 F Pulse Rate 90 Respiratory Rate 24 Pulse Oximetry 100 MDM - Skin/Abscess/Foreign Bdy MDM Narrative Medical decision making narrative: There is a small area of redness on the volar aspect of the right forearm however there are no are no urticaria nor pustules or vesicles. She is afebrile. No other indication of a systemic allergic reaction. Unsure the exact etiology. Could potentially been an insect sting/bite. Recommended continuing with the ice and she did take Benadryl if needed. No indication for antibiotics. She expressed understanding and agreement. Discharge Plan Departure Patient Disposition: Home Clinical Impression: Rash Instructions: DI for Rash Activity Restrictions/Additional Instructions: I recommend that you take Benadryl when you arrive home. You can also continue to put ice over the area. Return to the emergency department for any new or worsening symptoms. Prescriptions: No Action nitrofurantoin monohyd/m-cryst [Macrobid] 100 mg capsule 100 mg PO BID Qty: 14 0RF Rx Instructions: must administer with a meal/food ondansetron HCl [Zofran] 4 mg tablet 4 mg PO Q6-8H Qty: 7 0RF
== END 2022-03-22 01:44 | disposition home or self-care (01) ==
PROVIDERS: Emergency Provider Emergency Medicine
DX: R21 Rash and other nonspecific skin eruption (principal)
CPT/HCPCS: 99281

== ENCOUNTER 2022-04-11 08:09 | Emergency (ER) | payer OTHER, MEDICAID, SELFPAY ==
[2022-04-11 08:20] VITALS: BP 181/107; PULSE 109; RESP 18; TEMP 37.7; O2SAT 100; BMI 40.3
[2022-04-11 08:33] VITALS: BP 181/107
[2022-04-11 08:34] VITALS: BP 186/112; PULSE 108; O2SAT 100
--- NOTE | 2022-04-11 09:09 | ED.GENADULT ---
HPI - General Adult General Chief complaint: Upper Respiratory Symptoms Stated complaint: severe headache, fever, throwing up Time Seen by Provider: 04/11/22 09:04 Source: patient Mode of arrival: Ambulatory History of Present Illness HPI narrative: Patient is an otherwise healthy 22-year-old female who is here for multiple reasons to include headache and nausea and vomiting and body aches and generally not feeling very well. States her symptoms started last evening. She did try some ibuprofen last night without much improvement. She did sustain a head injury several weeks ago but has had no symptoms until now. The body aches started in route to the emergency department. She is also having a sore throat. No rashes. No abdominal pain. No urinary symptoms. No cough. Related Data Previous Rx's Medication Instructions Recorded ondansetron HCl 4 mg tablet 4 mg PO Q6-8H #7 tab 08/31/21 (Zofran) nitrofurantoin 100 mg PO BID #14 cap 11/19/21 monohydrate/macrocrystals 100 mg capsule (Macrobid) Allergies Allergy/AdvReac Type Severity Reaction Status Date / Time Penicillins [PENICILLINS] Allergy Unknown Anaphylaxis Verified 01/08/22 19:10 CILLINS Allergy Unknown Cough Uncoded 12/22/21 02:28 Review of Systems Constitutional Constitutional: Reports system reviewed and no additional complaints, except as documented ENT Ears, Nose, Mouth, and Throat: Reports system reviewed and no additional complaints, except as documented and Reports as per HPI Cardiovascular Cardiovascular: Reports system reviewed and no additional complaints, except as documented Respiratory Respiratory: Reports system reviewed and no additional complaints, except as documented Gastrointestinal Gastrointestinal: Reports system reviewed and no additional complaints, except as documented Integumentary/Breasts Skin/Breast: Reports system reviewed and no additional complaints, except as documented Neurologic Neurologic: Reports system reviewed and no additional complaints, except as documented Hematologic/Lymphatic On Anticoagulants: No Patient History Medical History (Updated 04/11/22 @ 10:17 by Elvis Edouard DO) Healthy adolescent Nephrolithiasis Surgical History No history of previous surgery Social History Smoking Status: Current every day smoker Smoking Status: Current every day smoker tobacco type: cigarettes and vaping alcohol intake frequency: holidays/special occasions only Substance Use Type: does not use Exam Initial Vital Signs Initial Vital Signs: Vital Signs Temperature 100 F H 04/11/22 08:20 Pulse Rate 109 H 04/11/22 08:20 Respiratory Rate 18 04/11/22 08:20 Blood Pressure 181/107 H 04/11/22 08:20 Pulse Oximetry 100 04/11/22 08:20 HENMT Head: normal to inspection and normocephalic Ears: TM's normal bilaterally Throat: posterior oropharynx normal Resp Effort & Inspection: normal respiratory effort Auscultation: clear to auscultation bilaterally Cardio Rate: regular rate Rhythm: regular rhythm GI Inspection: normal to inspection Skin General: no rashes or lesions noted Neuro General: patient alert, patient awake, patient oriented x3 and moves all extremities Extrem General: normal to inspection and capillary refill normal Psych Appearance: grossly normal and well kempt Course Orders Ordered: ED Orders 04/11/22 08:31 COVID19 -Nasal RAPID/Pre-Proc Stat 04/11/22 08:52 Urine Culture Stat Urine Microscopic Stat 04/11/22 09:02 Respiratory Panel (Film Array) Stat Discontinued Medications Sodium Chloride (Normal Saline 0.9%) 1,000 mls @ 1,000 mls/hr IV BOLUS ONE Stop: 04/11/22 09:51 Ondansetron HCl (Ondansetron 4 Mg/2 Ml Inj) 4 mg IV NOW ONE Stop: 04/11/22 09:09 Vital Signs Vital signs: Vital Signs - 8 hr 04/11/22 08:20 04/11/22 08:33 04/11/22 08:34 Temperature 100 F H Pulse Rate 109 H 108 H Respiratory Rate 18 Blood Pressure 181/107 H 181/107 H 186/112 H Pulse Oximetry 100 100 Medical Decision Making Lab Data Labs: Lab Results 04/11/22 04/11/22 04/11/22 Range/Units 08:31 08:52 09:02 Urine RBC 0-1/hpf (0-5/HPF) Urine WBC 5-10/hpf H (0-5/HPF) Ur Squamous Epith Cells 1-5 /hpf (0-5/HPF) Urine Bacteria Few (2-10) H (None) Ur Culture Indicated? Specimen cultured Chlamy pneumoniae PCR Not detected (Not Detect) Adenovirus (PCR) Not detected (Not Detect) B. pertussis DNA (PCR) Not detected (Not Detecte) B.parapertussis DNA PCR Not detected (Not Detecte) Coronavirus OC43 (PCR) Not detected (Not Detect) Coronavirus HKU1 (PCR) Not detected (Not Detect) Coronavirus 229E (PCR) Not detected (Not Detect) SARS-CoV-2 (PCR) Positive H Detected H (Negative) Coronavirus NL63 (PCR) Not detected (Not Detect) Human Metapneumovir PCR Not detected (Not Detect) Influenza Type A (PCR) Not detected (Not Detect) Influenza Type B (PCR) Not detected (Not Detect) M. pneumoniae (PCR) Not detected (Not Detect) Parainfluenza 1 (PCR) Not detected (Not Detect) Parainfluenza 2 (PCR) Not detected (Not Detect) Parainfluenza 3 (PCR) Not detected (Not Detect) Parainfluenza 4 (PCR) Not detected (Not Detect) RSV (PCR) Not detected (Not Detect) Entero/Rhino (PCR) Not detected (Not Detect) Point of Care Testing Test Results Negative Rapid Strep A Negative Urine Dip Bedside Urine Glucose Negative Bedside Urine Bilirubin - Negative Bedside Urine Ketone - Negative Urine Specific [place] 1.01 Bedside Urine Occult Blood - Negative Bedside Urine pH 6 Bedside Urine Protein - Negative Bedside Urine Urobilinogen - Negative Bedside Urine Nitrite - Negative Bedside Urine Leukocytes + 70 Esterase Point of care testing: Point of Care Testing Test Results Negative Rapid Strep A Negative Urine Dip Bedside Urine Glucose Negative Bedside Urine Bilirubin - Negative Bedside Urine Ketone - Negative Urine Specific [place] 1.01 Bedside Urine Occult Blood - Negative Bedside Urine pH 6 Bedside Urine Protein - Negative Bedside Urine Urobilinogen - Negative Bedside Urine Nitrite - Negative Bedside Urine Leukocytes + 70 Esterase MDM Narrative Medical decision making narrative: No respiratory distress. COVID is positive. She is vaccinated with the Moderna vaccine with the 2nd 1 being approximately 6 months ago. She has not had booster shot. Patient is not hypoxic. COVID-19 does explain her symptoms. She was informed of this. We did discuss quarantine. She expressed understanding agreement with plan and return precautions. Discharge Plan Departure Patient Disposition: Home Clinical Impression: COVID-19 Instructions: DI for COVID-19 (Suspected or Confirmed ) Activity Restrictions/Additional Instructions: Your testing today was positive for COVID-19. Please follow all CDC guidelines with regard to quarantine. You can take Tylenol for headaches and fevers and body aches. Be sure to increase your fluid intake. Return to the emergency department for any new or worsening symptoms. Prescriptions: No Action nitrofurantoin monohyd/m-cryst [Macrobid] 100 mg capsule 100 mg PO BID Qty: 14 0RF Rx Instructions: must administer with a meal/food ondansetron HCl [Zofran] 4 mg tablet 4 mg PO Q6-8H Qty: 7 0RF
[2022-04-11 09:15] LABS: COVID19 -Nasal RAPID POSITIVE (Negative)
[2022-04-11 09:41] LABS: Bacteria Urine Few (2-10); Culture Indicated Urine Specimen Cultured; RBC Urine 0-1/HPF (0-5/HPF); Squamous Epithelial Cell Urine 1-5 /HPF (0-5/HPF); WBC Urine 5-10/HPF (0-5/HPF)
[2022-04-11 10:00] VITALS: TEMP 37.7
[2022-04-11 10:12] LABS: Adenovirus Not Detected (Not Detect); B. parapertussis Not Detected (Not Detecte); Bordetella pertussis Not Detected (Not Detecte); Chlamydophila pneumoniae Not Detected (Not Detect); Coronavirus 229E Not Detected (Not Detect); Coronavirus HKU1 Not Detected (Not Detect); Coronavirus NL 63 Not Detected (Not Detect); Coronavirus OC43 Not Detected (Not Detect); Human Metapneumovirus Not Detected (Not Detect); Human Rhinovirus/Enterovirus Not Detected (Not Detect); Influenza A Not Detected (Not Detect); Influenza B Not Detected (Not Detect); Mycoplasma pneumoniae Not Detected (Not Detect); Parainfluenza Virus 1 Not Detected (Not Detect); Parainfluenza Virus 2 Not Detected (Not Detect); Parainfluenza Virus 3 Not Detected (Not Detect); Parainfluenza Virus 4 Not Detected (Not Detect); Respiratory Syncytial Virus Not Detected (Not Detect)
[2022-04-11 10:13] LABS: SARS- CoV-2 Detected (Not Detecte)
[2022-04-11 10:18] VITALS: BP 195/87; PULSE 110; RESP 16; O2SAT 99
== END 2022-04-11 10:25 | disposition home or self-care (01) ==
PROVIDERS: Emergency Provider Emergency Medicine
DX: U07.1 COVID-19 (principal); R11.2 Nausea with vomiting, unspecified
CPT/HCPCS: 81003; 81015; 81025; 87086; 87633; 87635; 87880; 99282; C9803

== ENCOUNTER 2022-04-13 10:07 | Emergency (ER) | payer OTHER, MEDICAID, SELFPAY ==
[2022-04-13] VITALS (7 sets, daily range): BP systolic 138–163; BP diastolic 74–94; PULSE 84–110; RESP 20–22; TEMP 36.7; O2SAT 97–99; BMI 40.3
--- NOTE | 2022-04-13 11:18 | ED.URI ---
HPI - URI/Sore Throat General Chief Complaint: Upper Respiratory Symptoms Stated Complaint: covid + sob Time Seen by Provider: 04/13/22 11:15 Source: patient Mode of arrival: Ambulatory History of Present Illness HPI Narrative: Patient is a 22-year-old healthy female who was diagnosed with COVID 3 days ago presenting today with cough and increasing shortness of breath. She says the 1st day she had a severe headache he took Tylenol ibuprofen for. She has had body aches fevers. Now she has a nonproductive cough with some worsening shortness of breath. In the ED she is afebrile with an oxygen level of 97-99% on room air. She is vaccinated for COVID. She was taking Tylenol and ibuprofen she was going to start NyQuil and DayQuil today but has not taken anything yet so far. Related Data Previous Rx's Medication Instructions Recorded ondansetron HCl 4 mg tablet 4 mg PO Q6-8H #7 tab 08/31/21 (Zofran) nitrofurantoin 100 mg PO BID #14 cap 11/19/21 monohydrate/macrocrystals 100 mg capsule (Macrobid) albuterol sulfate 90 mcg/actuation 2 puff INHALATION Q4-6H PRN #8.5 04/13/22 aerosol inhaler gram Allergies Allergy/AdvReac Type Severity Reaction Status Date / Time Penicillins [PENICILLINS] Allergy Unknown Anaphylaxis Verified 04/13/22 10:30 Review of Systems Review of Systems Narrative: GENERAL: See HPI HEENT: Denies sinus pain, ear pain, sore throat, difficulty swallowing, neck pain RESPIRATORY: See HPI CARDIOVASCULAR: Denies chest pain, palpitations, orthopnea, edema GASTROINTESTINAL: Denies nausea, vomiting, abdominal pain, diarrhea, constipation, melena. : Denies dysuria, frequency, incontinence, hematuria, urinary retention, flank pain. MUSCULOSKELETAL: Denies weakness, joint pain, or bony pain SKIN: No rash, no erythema, no pruritus NEUROLOGIC: Denies weakness, dizziness, headache, numbness, change in speech, confusion PSYCHIATRIC: No concerning psychosocial issues. 12 point review of systems is negative except for those stated above and HPI Patient History Medical History (Updated 04/13/22 @ 11:31 by Amanda Salcido DO) Healthy adolescent Nephrolithiasis Surgical History No history of previous surgery Social History Smoking Status: Current every day smoker Smoking Status: Current every day smoker tobacco type: cigarettes and vaping alcohol intake frequency: holidays/special occasions only Substance Use Type: does not use Exam Initial Vital Signs Initial Vital Signs: Vital Signs Temperature 98.1 F 04/13/22 10:20 Pulse Rate 96 H 04/13/22 10:20 Respiratory Rate 22 04/13/22 10:20 Blood Pressure 151/89 H 04/13/22 10:20 Pulse Oximetry 99 04/13/22 10:20 GENERAL: Alert 22-year-old female appears to not feel well HEENT: Head atraumatic,EOMI, pupils reactive, face symmetric, moist mucous membranes, no meningeal signs CARDIOVASCULAR: Regular rate and rhythm without murmurs, rubs or gallops. RESPIRATORY: Breath sounds equal bilaterally, no wheezes rales or rhonchi. ABDOMEN: Soft, nontender. Normoactive bowel sounds all 4 quadrants. No guarding or rebound. EXTREMITIES: Normal range of motion, no clubbing or edema. Neurovascularly intact NEUROLOGICAL: Alert and oriented x4.Normal gait and speech. SKIN: Warm, dry, no laceration, no petechiae, no rashes or lesions. Course Orders Ordered: Discontinued Medications Albuterol (Albuterol 2.5 Mg/3 Ml Neb (Adult)) 2.5 mg INH NOW ONE Stop: 04/13/22 11:23 Last Admin: 04/13/22 11:44 Dose: 2.5 mg Documented by: CARMEN Vital Signs Vital signs: Vital Signs - 8 hr 04/13/22 10:20 04/13/22 10:23 04/13/22 10:30 Temperature 98.1 F Pulse Rate 96 H 95 H 84 Respiratory Rate 22 Blood Pressure 151/89 H 151/89 H 163/74 H Pulse Oximetry 99 97 98 04/13/22 11:00 04/13/22 11:30 04/13/22 11:57 Temperature Pulse Rate 97 H 110 H Respiratory Rate 20 Blood Pressure 138/94 H Pulse Oximetry 97 97 98 04/13/22 12:00 Temperature Pulse Rate Respiratory Rate Blood Pressure 155/94 H Pulse Oximetry 97 MDM - URI/Sore Throat MDM Narrative Medical decision making narrative: Patient diagnosis of COVID she has clear breath sounds oxygenating appropriately. She has a tight nonproductive is the cough. She is given albuterol here in the ED. Recommend supportive care at home. Discharge Plan Departure Patient Disposition: Home Clinical Impression: COVID-19 Instructions: DI for COVID-19 (Suspected or Confirmed ) Activity Restrictions/Additional Instructions: *You have been diagnosed with COVID-19 *What to do: Monitor oxygen at. If oxygen decreases did not 89 or 90% please return to emergency department. Increase fluid intake as tolerated *Continue to take medications as directed Tylenol 1000 mg every 6 hours if needed for [id number] Albuterol inhaler 1-2 puffs every 4 hours if needed for shortness of breath or cough *Follow up with your primary care provider in 2-3 days or call [phone] *Return to ER if you should have increasing shortness of breath, worsening headaches despite medicines or any new, worsening or concerning symptoms Prescriptions: New albuterol sulfate 90 mcg/actuation HFA aerosol inhaler 2 puff INHALATION Q4-6H PRN (Reason: shortness of breath or wheezing) Qty: 8.5 0RF No Action nitrofurantoin monohyd/m-cryst [Macrobid] 100 mg capsule 100 mg PO BID Qty: 14 0RF Rx Instructions: must administer with a meal/food ondansetron HCl [Zofran] 4 mg tablet 4 mg PO Q6-8H Qty: 7 0RF
[2022-04-13] MEDS: ALBUTEROL 2.5 MG/3 ML NEB (ADULT) INH (11:44)
== END 2022-04-13 12:33 | disposition home or self-care (01) ==
PROVIDERS: Emergency Provider Emergency Medicine
DX: U07.1 COVID-19 (principal)
CPT/HCPCS: 94640; 99283; J7613

== ENCOUNTER 2022-04-20 11:00 | Emergency (ER) | payer OTHER, MEDICAID, SELFPAY ==
[2022-04-20 11:14] VITALS: BP 161/89; PULSE 70; RESP 18; TEMP 36.1; O2SAT 100; BMI 40.3
--- NOTE | 2022-04-20 11:17 | DI.RAD.S_ITS ---
PROCEDURE: XR CHEST 2V INDICATIONS: SOB, chest pain COVID 1.5weeks ago TECHNIQUE: 2 views of the chest were acquired. COMPARISON: [facility], CR, XR CHEST 2V, 12/24/2021, 15:32. FINDINGS: Surgical changes and devices: None. Lungs and pleura: Lungs are clear. No pleural effusions or pneumothorax. Mediastinum: Mediastinal contours are normal. Heart size is normal. Bones and chest wall: No suspicious bony abnormalities. Soft tissues appear unremarkable. IMPRESSION: Normal two view chest x-ray Approved by: Guille Reyes M.D. on 04/20/2022 at 10:57
--- NOTE | 2022-04-20 12:46 | ED.URI ---
HPI - URI/Sore Throat <Malika Donahue PA-C - Last Filed: 04/20/22 13:10> General Chief Complaint: Upper Respiratory Symptoms Stated Complaint: SOB, chest heavy post COVID Time Seen by Provider: 04/20/22 12:04 History of Present Illness HPI Narrative: Patient is a 22-year-old female presenting today with persistent shortness of breath and chest pain following a COVID-19 diagnosis 1.5 weeks ago. She reports that her shortness of breath primarily occurs when waking up in the morning and feels like she has difficulty taking a full deep breath. She feels that all her other COVID-19 symptoms have gotten better but her shortness of breath has persisted. She was prescribed an albuterol inhaler during her prior visit when she was diagnosed with COVID-19, and states that her symptoms resolve about 30 minutes after taking an inhaler but then will reappear a few hours later. She says that she takes her inhaler upon waking up, before going to bed, and maybe once throughout the day if she feels she needs it. She denies any dizziness, headache, ear pain, fever, nausea, or vomiting. She does report an occasional productive cough that she did not originally have when she was first diagnosed with COVID-19. Related Data Previous Rx's Medication Instructions Recorded ondansetron HCl 4 mg tablet 4 mg PO Q6-8H #7 tab 08/31/21 (Zofran) nitrofurantoin 100 mg PO BID #14 cap 11/19/21 monohydrate/macrocrystals 100 mg capsule (Macrobid) albuterol sulfate 90 mcg/actuation 2 puff INHALATION Q4-6H PRN #8.5 04/13/22 aerosol inhaler gram Allergies Allergy/AdvReac Type Severity Reaction Status Date / Time Penicillins [PENICILLINS] Allergy Unknown Anaphylaxis Verified 04/20/22 11:17 Review of Systems <Malika Donahue PA-C - Last Filed: 04/20/22 13:10> Constitutional Constitutional: Denies chills, Reports difficulty sleeping, Denies fatigue, Denies fever(s), Denies headache(s) and Denies weakness Eyes Eyes: Denies change in vision, Denies itchy eyes and Denies eye pain ENT Ears, Nose, Mouth, and Throat: Denies dizziness, Denies otalgia, Denies facial pain, Denies headache(s), Denies nasal congestion, Reports nasal discharge and Denies sinus pressure Cardiovascular Cardiovascular: Reports chest pain, Denies chest pain at rest, Denies syncope, Denies palpitations, Reports dyspnea and Reports dyspnea on exertion Respiratory Respiratory: Reports change in phlegm color, Reports cough, Denies hemoptysis, Reports dyspnea and Reports dyspnea on exertion Gastrointestinal Gastrointestinal: Denies constipation, Denies diarrhea, Denies nausea and Denies vomiting Genitourinary Genitourinary: Reports system reviewed and no additional complaints, except as documented Musculoskeletal Musculoskeletal: Reports system reviewed and no additional complaints, except as documented, Denies myalgias, Denies numbness and Denies tingling Integumentary/Breasts Skin/Breast: Reports system reviewed and no additional complaints, except as documented, Denies pruritus, Denies erythema and Denies rash Neurologic Neurologic: Reports system reviewed and no additional complaints, except as documented, Denies dizziness, Denies syncope, Denies headache(s), Denies numbness, Denies tingling and Denies weakness Psychiatric Psychiatric: Reports system reviewed and no additional complaints, except as documented Endocrine Endocrine: Reports system reviewed and no additional complaints, except as documented, Denies fatigue and Denies palpitations Hematologic/Lymphatic Hematologic/Lymphatic: Reports system reviewed and no additional complaints, except as documented Allergic/Immunologic Allergic/Immunologic: Reports system reviewed and no additional complaints, except as documented and Denies itchy eyes Patient History <Malika Donahue PA-C - Last Filed: 04/20/22 13:10> Medical History (Updated 04/26/22 @ 00:01 by ) Healthy adolescent Nephrolithiasis Surgical History No history of previous surgery Social History Smoking Status: Current every day smoker Smoking Status: Current every day smoker tobacco type: cigarettes and vaping alcohol intake frequency: holidays/special occasions only Substance Use Type: does not use Exam <Malika Donahue PA-C - Last Filed: 04/20/22 13:10> Narrative Exam Narrative: GENERAL: 22 year old patient appears stated age. Well-developed patient, in no distress. HEAD: Atraumatic. Normocephalic. EYES: Pupils equal round and reactive. Extraocular motions intact. No scleral icterus. No injection or drainage. ENT: Nose without bleeding, purulent drainage. Throat without erythema, tonsillar hypertrophy or exudate. Airway patent. NECK: Trachea midline. Non tender CARDIOVASCULAR: Regular rate and rhythm without murmurs, gallops, or rubs. RESPIRATORY: Clear to auscultation. Breath sounds equal bilaterally. No wheezes, rales, or rhonchi. GASTROINTESTINAL: Abdomen soft, non-tender, nondistended. EXTREMITIES: No edema or joint tenderness. BACK: Nontender without deformity or crepitance. No flank tenderness. NEURO: AOx3. SKIN: No rash or erythema of visible areas Initial Vital Signs Initial Vital Signs: Vital Signs Temperature 97.0 F L 04/20/22 11:14 Pulse Rate 70 04/20/22 11:14 Respiratory Rate 18 04/20/22 11:14 Blood Pressure 161/89 H 04/20/22 11:14 Pulse Oximetry 100 04/20/22 11:14 <DO Traci Haney Last Filed: 05/02/22 01:59> Initial Vital Signs Initial Vital Signs: Vital Signs Temperature 97.0 F L 04/20/22 11:14 Pulse Rate 70 04/20/22 11:14 Respiratory Rate 18 04/20/22 11:14 Blood Pressure 161/89 H 04/20/22 11:14 Pulse Oximetry 100 04/20/22 11:14 Course <Malika Donahue PA-C - Last Filed: 04/20/22 13:10> Orders Ordered: ED Orders 04/20/22 11:17 XR chest 2V Stat Vital Signs Vital signs: Vital Signs - 8 hr 04/20/22 11:14 Temperature 97.0 F L Pulse Rate 70 Respiratory Rate 18 Blood Pressure 161/89 H Pulse Oximetry 100 <DO Traci Haney Filed: 05/02/22 01:59> Orders Ordered: ED Orders 04/20/22 11:17 XR chest 2V Stat Vital Signs Vital signs: Vital Signs - 8 hr 04/20/22 11:14 Temperature 97.0 F L Pulse Rate 70 Respiratory Rate 18 Blood Pressure 161/89 H Pulse Oximetry 100 MDM - URI/Sore Throat <SKYLAR Lima Last Filed: 04/20/22 13:10> Imaging Data Chest x-ray: Radiologist's Impression: [address] [address] XRay Report Signed Patient: Janneth Tang MR#: [id number] : 2000 Acct:[id number] Age/Sex: 22 / F Date of Service: 04/20/22 Loc: ED Accession Number: [id number] ?? Procedure: XR chest 2V Ordering Provider: Amanda Salcido D.O. PROCEDURE:? XR CHEST 2V ? INDICATIONS:? SOB, chest pain COVID 1.5weeks ago ? TECHNIQUE:? 2 views of the chest were acquired.? ? COMPARISON:? [facility], CR, XR CHEST 2V, 12/24/2021, 15:32. ? FINDINGS:? ? Surgical changes and devices:? None.? ? Lungs and pleura:? Lungs are clear.? No pleural effusions or pneumothorax.? ? Mediastinum:? Mediastinal contours are normal.? Heart size is normal.? ? Bones and chest wall:? No suspicious bony abnormalities.? Soft tissues appear unremarkable.? ? IMPRESSION:? Normal two view chest x-ray ? ? ? Approved by: Guille Reyes M.D. on 04/20/2022 at 10:57? [facility] Narrative Medical decision making narrative: Patient is a 22-year-old female presenting today with persistent shortness of breath and chest pain following a COVID-19 diagnosis 1.5 weeks ago. We performed a chest x-ray today which came back as normal. Her vitals are stable and her oxygen saturation is 100 on room air. Upon physical exam, she has clear bilateral breath sounds with no wheezing present and moves air well. Based on the following, it is likely her symptoms are due to inflammation persisting from her COVID-19 virus and should continue to get better as her body continues to heal. I also encouraged her to take her albuterol inhaler regularly every 4-6 hours as the shortness of breath persists, and to use a humidifier or a steam shower to help loosen up any lingering phlegm as needed. I also told her she can take ibuprofen as needed. Findings and discharge diagnosis discussed with patient/family followed by verbalization of understanding Return precautions discussed with patient/family whom verbalize understanding. Discharge Plan Departure Patient Disposition: Home Clinical Impression: COVID-19 Instructions: DI for Viral Syndrome, DI for COVID-19 (Suspected or Confirmed ) Activity Restrictions/Additional Instructions: *You have been diagnosed with COVID-19 viral illness. You should continue to take 2 puffs of your albuterol inhaler every 4-6 hours as needed to help with your shortness of breath. You can also take Tylenol or ibuprofen as necessary. You should drink plenty of fluids, use a humidifier or steam shower, and refrain from smoking whenever possible as your body continues to heal from the virus. If you develop a high fever, chills, or continue to experience worsening chest pain or shortness of breath please return back to the ER. I hope you feel better soon! *What to do: *Please continue to take your regular medications as directed. [ ] New medication prescriptions sent to your pharmacy: [ ] [ ] New medication written as a paper prescription [X] No new medications given *If you do not have a primary care provider please contact the [facility] Call Center at [phone] and they can help get you set up with a doctor in the community. *Return to Emergency Department if you should have any new, worsening or concerning symptoms, such as [fever greater than 101 F, shaking chills, worsening pain, persistent vomiting or other bothersome symptoms] Prescriptions: No Action nitrofurantoin monohyd/m-cryst [Macrobid] 100 mg capsule 100 mg PO BID Qty: 14 0RF Rx Instructions: must administer with a meal/food albuterol sulfate 90 mcg/actuation HFA aerosol inhaler 2 puff INHALATION Q4-6H PRN (Reason: shortness of breath or wheezing) Qty: 8.5 0RF ondansetron HCl [Zofran] 4 mg tablet 4 mg PO Q6-8H Qty: 7 0RF <Amanda Salcido DO - Last Filed: 05/02/22 01:59> Cosign ED Attending Bassam Attestation: I was immediately available in the department for consultation. Documentation has been reviewed. I agree with assessment and plan.
== END 2022-04-20 13:08 | disposition home or self-care (01) ==
PROVIDERS: Emergency Provider Physician Assistant
DX: U07.1 COVID-19 (principal); R07.9 Chest pain, unspecified
CPT/HCPCS: 71046; 99283

== ENCOUNTER 2022-05-16 07:17 | Emergency (ER) | payer OTHER, MEDICAID, SELFPAY ==
[2022-05-16 07:41] VITALS: BP 163/90; PULSE 85; RESP 18; TEMP 36.6; O2SAT 99; BMI 43.0
--- NOTE | 2022-05-16 07:51 | ED_ITS ---
HPI - Chest Pain General Chief Complaint: Chest Pain Stated Complaint: chest pain right side Time Seen by Provider: 05/16/22 07:51 Source: patient Mode of arrival: Ambulatory Limitations: no limitations History of Present Illness HPI narrative: This is a 22-year-old female who comes emergency department with complaint of right-sided chest discomfort that started Thursday and has been persistent for the past 3 days it is at the right sternal border very localized she can reproduce it when she pushes on it. Movement of her arm or deep breath makes it worse. She has had this occasionally in the past but has not lasted for as long. She states that typically it will come on in the morning when she wakes up last 3 or 4 hours and it goes away throughout the day. Patient states that is present currently. She had headache yesterday, she has not had any fevers or chills recently, she has not had any cold cough or congestion this week. She was positive for COVID a month ago. She has had nausea occasionally but no vomiting. No diarrhea constipation. She had shortness of breath with her COVID infection she was given an inhaler which she said was were helpful. She has continued to use at occasionally but states she ran out. She is not having increasing shortness of breath. No new swelling in her extremities. She uses albuterol inhaler and takes ibuprofen as needed is her only medications. She has not had any today. No prior surgeries. She is allergic to anything with cillin in it.She quit using tobacco about a month ago, no alcohol, she stop using marijuana about 6 months ago no other recreational drugs. Related Data Previous Rx's Medication Instructions Recorded ondansetron HCl 4 mg tablet 4 mg PO Q6-8H nausea #7 tabs 08/31/21 (Zofran) nitrofurantoin 100 mg PO BID #14 caps 11/19/21 monohydrate/macrocrystals 100 mg capsule (Macrobid) albuterol sulfate 90 mcg/actuation 2 puff inhalation Q4-6H PRN 04/13/22 aerosol inhaler shortness of breath or wheezing #8.5 grams albuterol sulfate 90 mcg/actuation 2 inh inhalation Q4-6H PRN 05/16/22 breath activated powder inhaler shortness of breath or wheezing #1 ea Allergies Allergy/AdvReac Type Severity Reaction Status Date / Time Penicillins [PENICILLINS] Allergy Unknown Anaphylaxis Verified 04/20/22 11:17 Review of Systems Review of Systems ROS Unobtainable: All systems reviewed & are unremarkable except as noted in HPI and below Patient History Medical History (Updated 05/16/22 @ 08:37 by Brenda Jiménez DO) Healthy adolescent Nephrolithiasis Surgical History No history of previous surgery Social History Smoking Status: Current every day smoker Smoking Status: Current every day smoker tobacco type: cigarettes and vaping alcohol intake frequency: holidays/special occasions only Substance Use Type: does not use Exam Narrative Exam Narrative: GENERAL: Alert and oriented x three, female with BMI of 43 HEENT: Head normocephalic, atraumatic, EOMI, pupils reactive, face symmetric, moist mucous membranes NECK: Supple, full range of motion CARDIOVASCULAR: Regular rate and rhythm without murmurs, rubs or gallops. No JVD. Patient has reproduce localized pain over the right sternal border at the costochondral joint. Patient does not have any warmth, erythema or other skin changes. RESPIRATORY: Breath sounds equal bilaterally, no wheezes rales or rhonchi. No tachypnea, no accessory muscle use. Normal speech. ABDOMEN: Soft, nontender. Normoactive bowel sounds all 4 quadrants. No guarding or rebound, rigidity, no mass : No CVA tenderness EXTREMITIES: Normal range of motion, no clubbing or edema. Neurovascularly intact. NEUROLOGICAL: Cranial nerves II through XII grossly intact. Moving all extremities SKIN: Warm, dry, no petechiae, no rashes or lesions. Initial Vital Signs Initial Vital Signs: Vital Signs Temperature 98 F 05/16/22 07:41 Pulse Rate 85 05/16/22 07:41 Respiratory Rate 18 05/16/22 07:41 Blood Pressure 163/90 H 05/16/22 07:41 Pulse Oximetry 99 05/16/22 07:41 Oxygen Delivery Method 05/16/22 07:41 Course Orders Ordered: ED Orders 05/16/22 07:53 Chest [XR chest 1V] Stat EKG-12 Lead Stat Vital Signs Vital signs: Vital Signs - 8 hr 05/16/22 07:41 05/16/22 08:00 05/16/22 08:01 Temperature 98 F Pulse Rate 85 Respiratory Rate 18 Blood Pressure 163/90 H 149/89 H Pulse Oximetry 99 100 Oxygen Delivery Method Room Air 05/16/22 08:01 05/16/22 08:21 05/16/22 08:21 Temperature Pulse Rate 78 86 Respiratory Rate Blood Pressure 152/90 H Pulse Oximetry 100 99 Oxygen Delivery Method 05/16/22 08:30 05/16/22 08:31 05/16/22 08:31 Temperature Pulse Rate 71 84 Respiratory Rate Blood Pressure 155/95 H Pulse Oximetry 99 99 Oxygen Delivery Method MDM - Chest Pain Imaging Data Chest x-ray: My Impression: wnl Radiologist's Impression: Janneth Tang??22??F??2000 ? Allergy/Adv: Penicillins Close Chest X-Ray (Signed) Randall Hauser - 05/16/22 Chest X-Ray (Signed) Guille Reyes - 04/20/22 Chest X-Ray (Signed) Ho Leyva - 12/24/21 Chest X-Ray (Signed) Dre Ford - 12/22/21 Renal Ultrasound (Signed) Eric Steen - 12/01/21 Abdomen/Pelvis CT (Signed) Eric Steen - 12/01/21 Chest X-Ray (Signed) Samuel Ahuja - 09/14/20 Chest X-Ray (Signed) Eric Steen - 09/12/20 Knee X-Ray (Signed) Kt Saldana - 07/02/20 Knee X-Ray (Signed) Samuel Ahuja - 06/01/20 Chest X-Ray (Signed) Yazmin Almaguer - 10/12/18 Chest/Abdomen X-ray (Signed) Roni Abbasi - 06/08/[address] [address] XRay Report Signed Patient: Janneth Tang MR#: [id number] : 2000 Acct:[id number] Age/Sex: 22 / F Date of Service: 05/16/22 Loc: ED Accession Number: [id number] ?? Procedure: XR chest 1V Ordering Provider: Brenda Jiménez D.O. PROCEDURE:? XR CHEST 1V ? INDICATIONS:? chest pain, s/p covid infection ? TECHNIQUE:? One view of the chest was acquired.? ? COMPARISON:? [facility], CR, XR CHEST 2V, 04/20/2022, 11:09. ? FINDINGS:? ? Surgical changes and devices:? None.? ? Lungs and pleura:? Lungs are clear.? No pleural effusions or pneumothorax.? ? Mediastinum:? Mediastinal contours appear normal.? Heart size is normal.? ? Bones and chest wall:? No suspicious bony lesions.? Overlying soft tissues appear unremarkable.? ? IMPRESSION:? No acute cardiopulmonary pathology. ? ? Dictated by: Randall Hauser M.D. on 05/16/2022 at 8:18 ? ? Approved by: Randall Hauser M.D. on 05/16/2022 at 8:19?? ECG Data Attestation: I personally reviewed and interpreted this ECG as follows: Prior ECG tracings: available for review Interpretation: Sinus rhythm rate of 77 [place] 140 QRS 84 and QTC of 414. No acute ST changes appreciated. Patient has prior from 12/22/21 no acute changes. MDM Narrative Medical decision making narrative: This is a 22-year-old female with at right-sided chest pain which is reproducible on exam. Patient has had intermittently on and off in the past but has been more persistent for the last 3 days every morning when she awakens and then resolved over several hours. It is somewhat pleuritic but also worsened with movement and is very localized there is no signs of infection. Patient does have an elevated BMI she has not any estrogens, EKG and chest x-ray do not show any acute changes. Patient patient was COVID positive last month but has become asymptomatic since then. Occasional use of inhaler but has clear lungs today. My suspicion for cardiac or embolic cause is significantly lower based on exam in today findings and additional workup was deferred. Patient was encouraged to try ibuprofen which she has not, Tylenol she prefers. We did discuss return precautions all questions answered. Patient does note she has run out of her albuterol inhaler and does not have a primary care physician so prescription was sent today. Discharge Plan Departure Patient Disposition: Home Clinical Impression: Acute costochondritis Instructions: DI for Costochondritis Activity Restrictions/Additional Instructions: I suspect that you have costochondritis or inflammation of the cartilage between the joint of the sternum and the rib. This can be quite painful at times. You can contact [phone] at the call center to help you find a primary care physician to establish with. You can take ibuprofen up to 600 mg every 6 hours and/or Tylenol up to a 1000 mg every 6 hours as needed for pain. Albuterol inhaler prescription was sent to [facility] in [place]. Please return for fevers, new changing pain, increasing or changing location of chest pain, shortness of breath, coughing up blood, passing out, persistent vomiting or new swelling in your extremities. Prescriptions: New albuterol sulfate 90 mcg/actuation aerosol powdr breath activated 2 inh inhalation Q4-6H PRN (Reason: shortness of breath or wheezing) Qty: 1 0RF No Action nitrofurantoin monohyd/m-cryst [Macrobid] 100 mg capsule 100 mg PO BID Qty: 14 0RF Rx Instructions: must administer with a meal/food albuterol sulfate 90 mcg/actuation HFA aerosol inhaler 2 puff INHALATION Q4-6H PRN (Reason: shortness of breath or wheezing) Qty: 8.5 0RF ondansetron HCl [Zofran] 4 mg tablet 4 mg PO Q6-8H Qty: 7 0RF Visit Report Forms: Patient Portal/API
--- NOTE | 2022-05-16 07:53 | DI.RAD.S_ITS ---
PROCEDURE: XR CHEST 1V INDICATIONS: chest pain, s/p covid infection TECHNIQUE: One view of the chest was acquired. COMPARISON: [facility]ed [facility], CR, XR CHEST 2V, 04/20/2022, 11:09. FINDINGS: Surgical changes and devices: None. Lungs and pleura: Lungs are clear. No pleural effusions or pneumothorax. Mediastinum: Mediastinal contours appear normal. Heart size is normal. Bones and chest wall: No suspicious bony lesions. Overlying soft tissues appear unremarkable. IMPRESSION: No acute cardiopulmonary pathology. Dictated by: Randall Hauser M.D. on 05/16/2022 at 8:18 Approved by: Randall Hauser M.D. on 05/16/2022 at 8:19
[2022-05-16 08:00] VITALS: O2SAT 100
[2022-05-16 08:01] VITALS: BP 149/89; PULSE 78; O2SAT 100
[2022-05-16 08:21] VITALS: BP 152/90; PULSE 86; O2SAT 99
[2022-05-16 08:30] VITALS: PULSE 71; O2SAT 99
[2022-05-16 08:31] VITALS: BP 155/95; PULSE 84; O2SAT 99
== END 2022-05-16 09:00 | disposition home or self-care (01) ==
PROVIDERS: Emergency Provider Emergency Medicine
DX: M94.0 Chondrocostal junction syndrome [Tietze] (principal); Z86.16 Personal history of COVID-19
CPT/HCPCS: 71045; 93005; 93010; 99283

== ENCOUNTER 2022-05-20 10:53 | Emergency (ER) | payer OTHER, MEDICAID, SELFPAY ==
[2022-05-20 11:06] VITALS: BP 161/102; PULSE 71; RESP 16; TEMP 37.2; O2SAT 99; BMI 40.3
--- NOTE | 2022-05-20 12:56 | ED_ITS ---
HPI - URI/Sore Throat <Chandana Hathaway PA-C - Last Filed: 05/20/22 16:07> General Chief Complaint: Upper Respiratory Symptoms Stated Complaint: trouble breathing with chest pain/diff meds needed Time Seen by Provider: 05/20/22 12:50 History of Present Illness HPI Narrative: Patient is a 22-year-old female who presents to the ED complaining of shortness of breath and cough and congestion. Patient reports that she previously was diagnosed with COVID approximately 1 month ago and since then has had ongoing issues with perceived shortness of breath. She was seen in the ED couple days ago and was diagnosed with costochondritis of which she did take her ibuprofen as directed which seemed to help with her chest pain however she continues to still have some ongoing shortness of breath. She was unable to get her inhaler filled at the pharmacy secondary to insurance denial. She is trying to establish herself with a primary care physician and is having some delay in getting a new patient visit scheduled. Today her concerns are more about her difficulty breathing than her chest pain. She reports that she is having difficulty with a sense of getting her air in. She is also reporting increased amount of phlegm production over the last few days she has been taking [id number] Mucinex and NyQuil without any change in her symptoms. She denies any reported fever body aches or chills. She did report that she was seen for an upper respiratory infection a couple weeks back and was later called and told that she did have a strep infection however she was not treated with any antibiotics at that time. Patient is denying any complaints of sore throat. Related Data Previous Rx's Medication Instructions Recorded ondansetron HCl 4 mg tablet 4 mg PO Q6-8H nausea #7 tabs 08/31/21 (Zofran) nitrofurantoin 100 mg PO BID #14 caps 11/19/21 monohydrate/macrocrystals 100 mg capsule (Macrobid) albuterol sulfate 90 mcg/actuation 2 puff inhalation Q4-6H PRN 04/13/22 aerosol inhaler shortness of breath or wheezing #8.5 grams albuterol sulfate 90 mcg/actuation 2 inh inhalation Q4-6H PRN 05/16/22 breath activated powder inhaler shortness of breath or wheezing #1 ea Allergies Allergy/AdvReac Type Severity Reaction Status Date / Time Penicillins [PENICILLINS] Allergy Unknown Anaphylaxis Verified 04/20/22 11:17 Review of Systems <Chandana Hathaway PA-C - Last Filed: 05/20/22 16:07> Review of Systems ROS Unobtainable: All systems reviewed & are unremarkable except as noted in HPI and below Constitutional Constitutional: Denies chills, Denies fatigue, Denies fever(s), Denies frequent falls, Denies lethargy and Denies weakness Eyes Eyes: Denies change in vision, Denies eye discharge, Denies irritation and Denies loss of vision ENT Ears, Nose, Mouth, and Throat: Denies change in voice, Denies dizziness, Denies neck pain, Denies sore throat and Denies throat swelling Cardiovascular Cardiovascular: Denies chest pain, Denies irregular heart rhythm, Denies lightheadedness, Denies palpitations, Reports dyspnea, Reports dyspnea on exertion and Denies orthopnea Respiratory Respiratory: Reports cough, Reports excessive phlegm production, Reports dyspnea, Reports dyspnea on exertion and Denies wheezing Gastrointestinal Gastrointestinal: Denies abdominal pain, Denies change in bowel habits, Denies diarrhea, Denies nausea and Denies vomiting Genitourinary Genitourinary: Denies hematuria, Denies flank pain, Denies urinary incontinence and Denies urinary urgency Musculoskeletal Musculoskeletal: Denies back pain, Denies muscle weakness, Denies neck pain, Denies numbness and Denies tingling Integumentary/Breasts Skin/Breast: Denies pruritus, Denies erythema, Denies rash and Denies wounds Neurologic Neurologic: Denies behavioral changes, Denies confusion, Denies dizziness, Denies frequent falls, Denies loss of vision, Denies numbness, Denies tingling and Denies weakness Psychiatric Psychiatric: Denies anxiety, Denies behavioral changes, Denies confusion, Denies depression, Denies homicidal ideation and Denies suicidal ideation Endocrine Endocrine: Denies fatigue, Denies flushing and Denies palpitations Hematologic/Lymphatic Hematologic/Lymphatic: Denies easy bruising Allergic/Immunologic Allergic/Immunologic: Denies urticaria, Denies throat swelling and Denies wheezing Patient History <Chandana Hathaway PA-C - Last Filed: 05/20/22 16:07> Medical History (Updated 05/20/22 @ 16:07 by Chandana Hathaway PA-C) Healthy adolescent Nephrolithiasis Surgical History No history of previous surgery Social History Smoking Status: Current every day smoker Smoking Status: Current every day smoker tobacco type: cigarettes and vaping alcohol intake frequency: holidays/special occasions only Substance Use Type: does not use Exam <Chandana Hathaway PA-C - Last Filed: 05/20/22 16:07> Initial Vital Signs Initial Vital Signs: Vital Signs Temperature 98.9 F 05/20/22 11:06 Pulse Rate 71 05/20/22 11:06 Respiratory Rate 16 05/20/22 11:06 Blood Pressure 161/102 H 05/20/22 11:06 Pulse Oximetry 99 05/20/22 11:06 Oxygen Delivery Method 05/20/22 11:06 Const General: cooperative, healthy appearing and comfortable Nutritional Appearance: average body habitus Orientation: Orientation [facility] Head: normal to inspection, normocephalic and atraumatic Ears: hearing grossly normal bilaterally, external ears normal and TM's normal bilaterally Nose: external nose normal and nasal mucous membranes and turbinates normal Face and sinus: normal facial exam Mouth: oral mucosae normal Teeth and gingiva: dentition normal Throat: posterior oropharynx normal and tonsils normal Chest Chest: tenderness Resp Effort & Inspection: normal respiratory effort and able to speak in complete sentences Auscultation: clear to auscultation bilaterally Cardio Palpation: normal PMI Rate: regular rate Rhythm: regular rhythm Heart Sounds: S1 normal and S2 normal GI Inspection: normal to inspection Palpation: soft and no hepatosplenomegaly Percussion: normal to percussion Auscultation: normal bowel sounds <Bette Nguyen MD - Last Filed: 05/20/22 17:14> Initial Vital Signs Initial Vital Signs: Vital Signs Temperature 98.9 F 05/20/22 11:06 Pulse Rate 71 05/20/22 11:06 Respiratory Rate 16 05/20/22 11:06 Blood Pressure 161/102 H 05/20/22 11:06 Pulse Oximetry 99 05/20/22 11:06 Oxygen Delivery Method 05/20/22 11:06 Course <Chandana Hathaway PA-C - Last Filed: 05/20/22 16:07> Orders Ordered: ED Orders 05/20/22 13:08 CXR [XR chest 1V] Stat 05/20/22 13:15 Respiratory Panel (Film Array) Stat Reevaluation(s) Reevaluation #1: Patient doing well not having any significant complaints of shortness of breath at this time. No cough vital stable. Vital Signs Vital signs: Vital Signs - 8 hr 05/20/22 11:06 Temperature 98.9 F Pulse Rate 71 Respiratory Rate 16 Blood Pressure 161/102 H Pulse Oximetry 99 Oxygen Delivery Method Room Air <Bette Nguyen MD - Last Filed: 05/20/22 17:14> Orders Ordered: ED Orders 05/20/22 13:08 CXR [XR chest 1V] Stat 05/20/22 13:15 Respiratory Panel (Film Array) Stat Vital Signs Vital signs: Vital Signs - 8 hr 05/20/22 11:06 Temperature 98.9 F Pulse Rate 71 Respiratory Rate 16 Blood Pressure 161/102 H Pulse Oximetry 99 Oxygen Delivery Method Room Air MDM - URI/Sore Throat <Chandana Hathaway PA-C - Last Filed: 05/20/22 16:07> Differential Diagnosis Differential diagnosis: Likely other Lab Data Labs: Lab Results 05/20/22 Range/Units 13:15 Chlamy pneumoniae PCR Not detected (Not Detect) Adenovirus (PCR) Not detected (Not Detect) B. pertussis DNA (PCR) Not detected (Not Detecte) B.parapertussis DNA PCR Not detected (Not Detecte) Coronavirus OC43 (PCR) Not detected (Not Detect) Coronavirus HKU1 (PCR) Not detected (Not Detect) Coronavirus 229E (PCR) Not detected (Not Detect) SARS-CoV-2 (PCR) Not detected (Not Detecte) Coronavirus NL63 (PCR) Not detected (Not Detect) Human Metapneumovir PCR Not detected (Not Detect) Influenza Type A (PCR) Not detected (Not Detect) Influenza Type B (PCR) Not detected (Not Detect) M. pneumoniae (PCR) Not detected (Not Detect) Parainfluenza 1 (PCR) Not detected (Not Detect) Parainfluenza 2 (PCR) Not detected (Not Detect) Parainfluenza 3 (PCR) Not detected (Not Detect) Parainfluenza 4 (PCR) Not detected (Not Detect) RSV (PCR) Not detected (Not Detect) Entero/Rhino (PCR) Not detected (Not Detect) Imaging Data Chest x-ray: Radiologist's Impression: [address] [address] XRay Report Signed Patient: Janneth Tang MR#: [id number] : 2000 Acct:[id number] Age/Sex: 22 / F Date of Service: 05/20/22 Loc: ED Accession Number: [id number] ?? Procedure: XR chest 1V Ordering Provider: Chandana Hathaway P.A-C PROCEDURE:? XR CHEST 1V ? INDICATIONS:? Shortness of breath ? TECHNIQUE:? One view of the chest was acquired.? ? COMPARISON:? [facility], CR, XR CHEST 1V, 05/16/2022, 7:54. ? FINDINGS:? ? Surgical changes and devices:? None.? ? Lungs and pleura:? Lungs are clear.? No pleural effusions or pneumothorax.? ? Mediastinum:? Mediastinal contours appear normal.? Heart size is normal.? ? Bones and chest wall:? No suspicious bony lesions.? Overlying soft tissues appear unremarkable.? ? IMPRESSION:? No acute cardiopulmonary process demonstrated. ? ? Dictated by: Samuel Ahuja M.D. on 05/20/2022 at 14:02 ? ? Approved by: Samuel Ahuja M.D. on 05/20/2022 at 14:19?? [facility] Narrative Medical decision making narrative: Patient was seen today for complaints of shortness of breath. Her previous diagnosis of costochondritis is still likely there she does have some ongoing substernal tenderness with palpation. However her pain is not as severe as it was when she was seen a few days ago. Her shortness of breath does not show any evidence of any pneumonia her viral panel was negative her lung sounds were clear she was denied her albuterol inhaler from her previous visit as result of insurance denial. I spoke with patient and she is not interested in another prescription at this point. I advised her that she can return to the ED if her shortness of breath worsens. She was agreeable I also recommended Mucinex that she can take [id number] as directed. Patient will be discharged home. <Bette Nguyen MD - Last Filed: 05/20/22 17:14> Lab Data Labs: Lab Results 05/20/22 Range/Units 13:15 Chlamy pneumoniae PCR Not detected (Not Detect) Adenovirus (PCR) Not detected (Not Detect) B. pertussis DNA (PCR) Not detected (Not Detecte) B.parapertussis DNA PCR Not detected (Not Detecte) Coronavirus OC43 (PCR) Not detected (Not Detect) Coronavirus HKU1 (PCR) Not detected (Not Detect) Coronavirus 229E (PCR) Not detected (Not Detect) SARS-CoV-2 (PCR) Not detected (Not Detecte) Coronavirus NL63 (PCR) Not detected (Not Detect) Human Metapneumovir PCR Not detected (Not Detect) Influenza Type A (PCR) Not detected (Not Detect) Influenza Type B (PCR) Not detected (Not Detect) M. pneumoniae (PCR) Not detected (Not Detect) Parainfluenza 1 (PCR) Not detected (Not Detect) Parainfluenza 2 (PCR) Not detected (Not Detect) Parainfluenza 3 (PCR) Not detected (Not Detect) Parainfluenza 4 (PCR) Not detected (Not Detect) RSV (PCR) Not detected (Not Detect) Entero/Rhino (PCR) Not detected (Not Detect) Discharge Plan Departure Patient Disposition: Home Clinical Impression: Respiratory distress, Acute costochondritis Instructions: DI for Shortness of Breath Activity Restrictions/Additional Instructions: You were seen today for your shortness of breath. Her chest x-ray did not show any evidence of pneumonia. And your examination did not show any abnormal sounds as result a inhaler would not likely be of benefit at this point. I would still continue to take ibuprofen as previously directed for your ongoing costochondritis. He can take Mucinex OTC as directed for your excessive phlegm production. He can follow up with her PCP for further evaluation and treatment. Thank you for the opportunity to care for you today. Prescriptions: No Action nitrofurantoin monohyd/m-cryst [Macrobid] 100 mg capsule 100 mg PO BID Qty: 14 0RF Rx Instructions: must administer with a meal/food albuterol sulfate 90 mcg/actuation HFA aerosol inhaler 2 puff INHALATION Q4-6H PRN (Reason: shortness of breath or wheezing) Qty: 8.5 0RF albuterol sulfate 90 mcg/actuation aerosol powdr breath activated 2 inh inhalation Q4-6H PRN (Reason: shortness of breath or wheezing) Qty: 1 0RF ondansetron HCl [Zofran] 4 mg tablet 4 mg PO Q6-8H Qty: 7 0RF Visit Report Forms: Patient Portal/API <Bette Nguyen MD - Last Filed: 05/20/22 17:14> Cosign ED Attending Cosignature Attestation: I was immediately available in the department for consultation throughout this patient's visit. I agree with documentation as above. Bette Nguyen MD
--- NOTE | 2022-05-20 13:08 | DI.RAD.S_ITS ---
PROCEDURE: XR CHEST 1V INDICATIONS: Shortness of breath TECHNIQUE: One view of the chest was acquired. COMPARISON: [facility], CR, XR CHEST 1V, 05/16/2022, 7:54. FINDINGS: Surgical changes and devices: None. Lungs and pleura: Lungs are clear. No pleural effusions or pneumothorax. Mediastinum: Mediastinal contours appear normal. Heart size is normal. Bones and chest wall: No suspicious bony lesions. Overlying soft tissues appear unremarkable. IMPRESSION: No acute cardiopulmonary process demonstrated. Dictated by: Samuel Ahuja M.D. on 05/20/2022 at 14:02 Approved by: Samuel Ahuja M.D. on 05/20/2022 at 14:19
[2022-05-20 15:42] LABS: Adenovirus Not Detected (Not Detect); B. parapertussis Not Detected (Not Detecte); Bordetella pertussis Not Detected (Not Detecte); Chlamydophila pneumoniae Not Detected (Not Detect); Coronavirus 229E Not Detected (Not Detect); Coronavirus HKU1 Not Detected (Not Detect); Coronavirus NL 63 Not Detected (Not Detect); Coronavirus OC43 Not Detected (Not Detect); Human Metapneumovirus Not Detected (Not Detect); Human Rhinovirus/Enterovirus Not Detected (Not Detect); Influenza A Not Detected (Not Detect); Influenza B Not Detected (Not Detect); Mycoplasma pneumoniae Not Detected (Not Detect); Parainfluenza Virus 1 Not Detected (Not Detect); Parainfluenza Virus 2 Not Detected (Not Detect); Parainfluenza Virus 3 Not Detected (Not Detect); Parainfluenza Virus 4 Not Detected (Not Detect); Respiratory Syncytial Virus Not Detected (Not Detect); SARS- CoV-2 Not Detected (Not Detecte)
== END 2022-05-20 16:14 | disposition home or self-care (01) ==
PROVIDERS: Emergency Provider Physician Assistant
DX: R06.03 Acute respiratory distress (principal); M94.0 Chondrocostal junction syndrome [Tietze]; R05.9 Cough, unspecified; Z86.16 Personal history of COVID-19; Z20.822 Contact with and (suspected) exposure to COVID-19
CPT/HCPCS: 71045; 87633; 99281; 99283

== ENCOUNTER 2022-06-14 18:32 | Emergency (ER) | payer OTHER, MEDICAID, SELFPAY ==
[2022-06-14 18:46] VITALS: BP 170/91; PULSE 70; RESP 18; TEMP 36.7; O2SAT 100; BMI 40.3
== END 2022-06-14 20:00 | disposition left against medical advice (07) ==
PROVIDERS: Emergency Provider Emergency Medicine
DX: R07.9 Chest pain, unspecified (principal)
CPT/HCPCS: 93005; 93010; 99281

== ENCOUNTER 2022-10-29 12:10 | Emergency (ER) | payer OTHER, MEDICAID, SELFPAY ==
[2022-10-29 12:23] VITALS: BP 160/80; PULSE 81; RESP 16; TEMP 37.1; O2SAT 100; BMI 41.9
--- NOTE | 2022-10-29 12:32 | DI.RAD.S_ITS ---
PROCEDURE: XR CHEST 1V INDICATIONS: chest pain TECHNIQUE: One view of the chest was acquired. COMPARISON: [facility], CR, XR CHEST 1V, 05/20/2022, 13:34. FINDINGS: Surgical changes and devices: None. Lungs and pleura: Lungs are clear. No pleural effusions or pneumothorax. Mediastinum: Mediastinal contours appear normal. Heart size is normal. Bones and chest wall: No suspicious bony lesions. Overlying soft tissues appear unremarkable. IMPRESSION: No acute cardiopulmonary findings. Dictated by: Jaclyn Huddleston M.D. on 10/29/2022 at 13:47 Approved by: Jaclyn Huddleston M.D. on 10/29/2022 at 13:47
--- NOTE | 2022-10-29 12:55 | DI.US.S_ITS ---
PROCEDURE: US ABDOMEN LIMITED INDICATIONS: ruq pain, janis? TECHNIQUE: Real-time focused scanning was performed of the abdomen, with image documentation. COMPARISON: [facility], CT, CT ABDOMEN PELVIS W CON, 12/01/2021, 22:36. FINDINGS: This study is limited by body habitus. The liver demonstrates normal size. The liver demonstrates generalized moderately increased echogenicity. This decreases ultrasound sensitivity for detection of hepatic masses. The patient is not NPO and the gallbladder is partially decompressed. No findings of gallstones or sludge are seen. The gallbladder wall is not thickened, measuring 3 mm or less. No specific pericholecystic fluid is seen. The sonographic Irwin sign is negative. There is no biliary dilatation, the common bile duct measures 3-4 mm. The pancreas is not well seen, secondary to overlying bowel gas. IMPRESSION: Limited study demonstrating no significant gallbladder abnormality. Patient is seen. The liver demonstrates increased echogenicity. This finding is nonspecific, yet it is most commonly attributed to fatty infiltration. Dictated by: Dre Ford M.D. on 10/29/2022 at 12:27 Approved by: Dre Ford M.D. on 10/29/2022 at 12:32
--- NOTE | 2022-10-29 12:57 | ED_ITS ---
HPI - Chest Pain <SONDRA Rausch - Last Filed: 10/29/22 14:28> General Chief Complaint: Chest Pain Stated Complaint: Chest pain, SOB Time Seen by Provider: 10/29/22 12:43 Source: patient Mode of arrival: Ambulatory Limitations: no limitations History of Present Illness HPI narrative: This is a 22-year-old female presents to the emergency department complaining of epigastric pain over the last 3-4 days worse when she lays down and states it feels like reflux in her epigastrium with heartburn and pressure in her mid chest, she states it does radiate to the right lateral upper quadrant into her shoulder and back. She denies any history of abdominal surgery, denies taking any PPI, denies vomiting or blood in her urine or vomit. Her primary care provider is Dr. Bonner in [place]. Patient states that her periods have been regular, she has not had any fever, chills, changes to her stool, urination or other abdominal pain. Related Data Previous Rx's Medication Instructions Recorded ondansetron HCl 4 mg tablet 4 mg PO Q6-8H nausea #7 tabs 08/31/21 (Zofran) nitrofurantoin 100 mg PO BID #14 caps 11/19/21 monohydrate/macrocrystals 100 mg capsule (Macrobid) albuterol sulfate 90 mcg/actuation 2 puff inhalation Q4-6H PRN 04/13/22 aerosol inhaler shortness of breath or wheezing #8.5 grams albuterol sulfate 90 mcg/actuation 2 inh inhalation Q4-6H PRN 05/16/22 breath activated powder inhaler shortness of breath or wheezing #1 ea omeprazole 20 mg capsule,delayed 20 mg PO BID #60 caps 10/29/22 release sucralfate 1 gram tablet (Carafate) 1 g PO TID PRN heart burn #60 tabs 10/29/22 Allergies Allergy/AdvReac Type Severity Reaction Status Date / Time Penicillins [PENICILLINS] Allergy Unknown Anaphylaxis Verified 06/14/22 18:46 Review of Systems <SONDRA Rausch - Last Filed: 10/29/22 14:28> Review of Systems Narrative: Review of systems is negative for acute abnormalities unless otherwise noted in HPI Patient History <SONDRA Rausch - Last Filed: 10/29/22 14:28> Medical History (Updated 10/29/22 @ 14:17 by SONDRA Rausch) Healthy adolescent Nephrolithiasis Surgical History No history of previous surgery Social History Smoking Status: Former smoker Smoking Status: Former smoker tobacco type: cigarettes and vaping alcohol intake frequency: holidays/special occasions only Substance Use Type: does not use Exam <SONDRA Rausch - Last Filed: 10/29/22 14:28> Narrative Exam Narrative: Reviewed vitals signs and nursing notes. General: cooperative, comfortable, in no acute distress, well groomed HEENT: symmetrical facial expressions, moist mucous membranes Cardiovascular: regular rate and rhythm, no peripheral edema, warm extremities Respiratory: normal effort, able to speak in complete sentences, without wheezing, stridor, or abnormal breath sounds. No retractions or tachypnea. GI: abdomen soft, tenderness to palpation to the right upper quadrant with deep inspiration, mild tenderness over epigastrium, nondistended, without masses, rebound tenderness or exquisite tenderness with exam. MSK: moves all extremities, neurovascularly intact, no weakness, normal tone Skin: brisk capillary refill, without pallor or erythema Neuro: normal speech and cognition, A&O x3, ambulatory, clear speech Psych: mental status is grossly normal, congruent mood, normal affect, pleasant and cooperative Initial Vital Signs Initial Vital Signs: Vital Signs Temperature 98.8 F 10/29/22 12:23 Pulse Rate 81 10/29/22 12:23 Respiratory Rate 16 10/29/22 12:23 Blood Pressure 160/80 H 10/29/22 12:23 Pulse Oximetry 100 10/29/22 12:23 Oxygen Delivery Method 10/29/22 12:23 <Elvis Edouard DO - Last Filed: 10/29/22 14:34> Initial Vital Signs Initial Vital Signs: Vital Signs Temperature 98.8 F 10/29/22 12:23 Pulse Rate 81 10/29/22 12:23 Respiratory Rate 16 10/29/22 12:23 Blood Pressure 160/80 H 10/29/22 12:23 Pulse Oximetry 100 10/29/22 12:23 Oxygen Delivery Method 10/29/22 12:23 Course <SONDRA Rausch - Last Filed: 10/29/22 14:28> Course Course Narrative: Patient reports good relief after her GI cocktail Orders Ordered: ED Orders 10/29/22 12:32 XR chest 1V Stat 10/29/22 12:41 EKG-12 Lead Stat 10/29/22 12:43 COVID19 -Nasal RAPID/Pre-Proc Stat 10/29/22 12:52 Complete Blood Count AUTO DIFF Stat Comprehensive Metabolic Panel Stat Lipase Stat Magnesium Stat Partial Thromboplastin Time Stat Prothrombin Time INR Stat Troponin & CK Cardiac Panel Stat 10/29/22 12:55 US abdomen limited Stat 10/29/22 13:50 Urine Microscopic Stat 10/29/22 13:56 Wet Prep Tric BV Joslyn Stat Discontinued Medications Ketorolac Tromethamine (Ketorolac 30 Mg/Ml Vial) 15 mg IV NOW ONE Stop: 10/29/22 13:02 Last Admin: 10/29/22 13:18 Dose: 15 mg Documented By: STEVE Ondansetron HCl (Ondansetron 4 Mg/2 Ml Inj) 4 mg IV NOW ONE Stop: 10/29/22 12:57 Last Admin: 10/29/22 13:18 Dose: 4 mg Documented By: STEVE Pantoprazole Sodium (Pantoprazole 40 Mg Vial) 40 mg IV NOW ONE Stop: 10/29/22 12:57 Last Admin: 10/29/22 13:18 Dose: 40 mg Documented By: STEVE Vital Signs Vital signs: Vital Signs - 8 hr 10/29/22 12:23 Temperature 98.8 F Pulse Rate 81 Respiratory Rate 16 Blood Pressure 160/80 H Pulse Oximetry 100 Oxygen Delivery Method Room Air <Elvis Edouard DO - Last Filed: 10/29/22 14:34> Orders Ordered: ED Orders 10/29/22 12:32 XR chest 1V Stat 10/29/22 12:41 EKG-12 Lead Stat 10/29/22 12:43 COVID19 -Nasal RAPID/Pre-Proc Stat 10/29/22 12:52 Complete Blood Count AUTO DIFF Stat Comprehensive Metabolic Panel Stat Lipase Stat Magnesium Stat Partial Thromboplastin Time Stat Prothrombin Time INR Stat Troponin & CK Cardiac Panel Stat 10/29/22 12:55 US abdomen limited Stat 10/29/22 13:50 Urine Microscopic Stat 10/29/22 13:56 Wet Prep Tric BV Joslyn Stat Discontinued Medications Ketorolac Tromethamine (Ketorolac 30 Mg/Ml Vial) 15 mg IV NOW ONE Stop: 10/29/22 13:02 Last Admin: 10/29/22 13:18 Dose: 15 mg Documented By: STEVE Ondansetron HCl (Ondansetron 4 Mg/2 Ml Inj) 4 mg IV NOW ONE Stop: 10/29/22 12:57 Last Admin: 10/29/22 13:18 Dose: 4 mg Documented By: STEVE Pantoprazole Sodium (Pantoprazole 40 Mg Vial) 40 mg IV NOW ONE Stop: 10/29/22 12:57 Last Admin: 10/29/22 13:18 Dose: 40 mg Documented By: STEVE Vital Signs Vital signs: Vital Signs - 8 hr 10/29/22 12:23 Temperature 98.8 F Pulse Rate 81 Respiratory Rate 16 Blood Pressure 160/80 H Pulse Oximetry 100 Oxygen Delivery Method Room Air MDM - Chest Pain <SONDRA Rausch - Last Filed: 10/29/22 14:28> Lab Data Result diagrams: 10/29/22 12:52 10/29/22 12:52 Labs: Lab Results 10/29/22 10/29/22 10/29/22 Range/Units 12:43 12:52 12:52 WBC 9.6 (4.5-11.0) X10^3/uL RBC 5.38 H (4.0-5.2) X10^6/uL Hgb 14.4 (12.0-16.0) g/dL Hct 43.2 (36-46) % MCV 80.2 (80-100) fL MCH 26.8 (26-34) PG MCHC 33.5 (30-36) % RDW 14.0 (11.6-14.8) % Plt Count 334 (150-400) X10^3/uL Neut % (Auto) 69.0 (50-75) % Lymph % (Auto) 23.0 L (25-40) % Phillips % (Auto) 5.0 (3-14) % Eos % (Auto) 2.2 (2-4) % Baso % (Auto) 0.8 (0-2) % Neut # (Auto) 6600 (6231-8691) /uL Lymph # (Auto) 2200 (5043-7853) /uL Phillips # (Auto) 500 (0-900) /uL Eos # (Auto) 200 (0-450) /uL Baso # (Auto) 100 (0-100) /uL PT 13.4 H (10.1-12.7) SECONDS INR 1.2 (0.9-1.3) APTT 33 (26-36) SECONDS Sodium (137-145) mmol/L Potassium (3.4-5.1) mmol/L Chloride (98-107) mmol/L Carbon Dioxide (22-32) mmol/L BUN (7-17) mg/dL Creatinine (0.52-1.04) mg/dL Estimated GFR (>60) mL/min BUN/Creatinine Ratio (6-22) Glucose (70-100) mg/dL Calcium (8.4-10.2) mg/dL Magnesium (1.6-2.3) mg/dL Total Bilirubin (0.2-1.3) mg/dL AST (14-36) IU/L ALT (<35) IU/L Alkaline Phosphatase (38-126) U/L Total Creatine Kinase (30-135) U/L CK-MB (CK-2) CK-MB (CK-2) Rel Index Troponin I (0.01-0.034) ng/mL Total Protein (6.3-8.2) g/dL Albumin (3.5-5.0) g/dL Globulin (1.7-4.1) g/dL Albumin/Globulin Ratio (1.0-2.8) Lipase (23-300) U/L Urine RBC (0-5/HPF) Urine WBC (0-5/HPF) Urine Bacteria (None) Ur Culture Indicated? Micro UA Comment SARS-CoV-2 (PCR) Negative (Negative) 10/29/22 10/29/22 Range/Units 12:52 13:50 WBC (4.5-11.0) X10^3/uL RBC (4.0-5.2) X10^6/uL Hgb (12.0-16.0) g/dL Hct (36-46) % MCV (80-100) fL MCH (26-34) PG MCHC (30-36) % RDW (11.6-14.8) % Plt Count (150-400) X10^3/uL Neut % (Auto) (50-75) % Lymph % (Auto) (25-40) % Phillips % (Auto) (3-14) % Eos % (Auto) (2-4) % Baso % (Auto) (0-2) % Neut # (Auto) (8643-0929) /uL Lymph # (Auto) (7565-1640) /uL Phillips # (Auto) (0-900) /uL Eos # (Auto) (0-450) /uL Baso # (Auto) (0-100) /uL PT (10.1-12.7) SECONDS INR (0.9-1.3) APTT (26-36) SECONDS Sodium 140 (137-145) mmol/L Potassium 4.0 (3.4-5.1) mmol/L Chloride 104 (98-107) mmol/L Carbon Dioxide 25 (22-32) mmol/L BUN 8 (7-17) mg/dL Creatinine 0.76 (0.52-1.04) mg/dL Estimated GFR > 60 (>60) mL/min BUN/Creatinine Ratio 10.5 (6-22) Glucose 92 (70-100) mg/dL Calcium 9.2 (8.4-10.2) mg/dL Magnesium 1.8 (1.6-2.3) mg/dL Total Bilirubin 0.4 (0.2-1.3) mg/dL AST 24 (14-36) IU/L ALT 20 (<35) IU/L Alkaline Phosphatase 107 (38-126) U/L Total Creatine Kinase 69 (30-135) U/L CK-MB (CK-2) TNP CK-MB (CK-2) Rel Index TNP Troponin I < 0.012 (0.01-0.034) ng/mL Total Protein 9.3 H (6.3-8.2) g/dL Albumin 4.9 (3.5-5.0) g/dL Globulin 4.4 H (1.7-4.1) g/dL Albumin/Globulin Ratio 1.1 (1.0-2.8) Lipase 197 (23-300) U/L Urine RBC None seen (0-5/HPF) Urine WBC None seen (0-5/HPF) Urine Bacteria None seen (None) Ur Culture Indicated? Cult not indicated Micro UA Comment Microscopic normal SARS-CoV-2 (PCR) (Negative) Point of Care Testing Test Results Negative Urine Dip Bedside Urine Glucose Negative Bedside Urine Bilirubin - Negative Bedside Urine Ketone - Negative Urine Specific Kittery 1.015 Bedside Urine Occult Blood - Negative Bedside Urine pH 6.0 Bedside Urine Protein - Negative Bedside Urine Urobilinogen - Negative Bedside Urine Nitrite - Negative Bedside Urine Leukocytes - Negative Esterase Imaging Data US - abdomen: Radiologist's Impression: PROCEDURE: US ABDOMEN LIMITED ? INDICATIONS:? ruq pain, janis? ? TECHNIQUE:? Real-time focused scanning was performed of the abdomen, with image documentation.? ? COMPARISON:? [facility], CT, CT ABDOMEN PELVIS W CON, 12/01/2021, 22:36. ? FINDINGS:? This study is limited by body habitus. ? The liver demonstrates normal size. The liver demonstrates generalized moderately increased echogenicity. This decreases ultrasound sensitivity for detection of hepatic masses.? ? The patient is not NPO and the gallbladder is partially decompressed.? No findings of gallstones or sludge are seen.? The gallbladder wall is not thickened, measuring 3 mm or less.? No specific pericholecystic fluid is seen.? The sonographic Irwin sign is negative. ? There is no biliary dilatation, the common bile duct measures 3-4 mm.? ? The pancreas is not well seen, secondary to overlying bowel gas. ? ? ? IMPRESSION:? Limited study demonstrating no significant gallbladder abnormality. ? Patient is seen. ? The liver demonstrates increased echogenicity.? This finding is nonspecific, yet it is most commonly attributed to fatty infiltration.? ? Dictated by: Dre Ford M.D. on 10/29/2022 at 12:27 ? ? Approved by: Dre Ford M.D. on 10/29/2022 at 12:32 ? Chest x-ray: Radiologist's Impression: PROCEDURE:? XR CHEST 1V ? INDICATIONS:? chest pain ? TECHNIQUE:? One view of the chest was acquired.? ? COMPARISON:? [facility], CR, XR CHEST 1V, 05/20/2022, 13:34. ? FINDINGS:? ? Surgical changes and devices:? None.? ? Lungs and pleura:? Lungs are clear.? No pleural effusions or pneumothorax.? ? Mediastinum:? Mediastinal contours appear normal.? Heart size is normal.? ? Bones and chest wall:? No suspicious bony lesions.? Overlying soft tissues appear unremarkable.? ? IMPRESSION:? No acute cardiopulmonary findings. ? ? Dictated by: Jaclyn Huddleston M.D. on 10/29/2022 at 13:47 ? ? Approved by: Jaclyn Huddleston M.D. on 10/29/2022 at 13:47 ? MDM Narrative Medical decision making narrative: This is a 22-year-old female presents to the emergency department complaining of epigastric pain which she thinks is like reflux because it exacerbates when she lies down and is not associated with food in his most common with an empty stomach. She is not taken PPIs in the past, today she was given a GI cocktail and Protonix, states that she felt much better afterwards. Abdominal ultrasound of her right upper quadrant was obtained tender to the right upper quadrant with palpation, this was negative for gallstones, pericholecystic fluid, gallbladder wall is not thick and measures 3 mm or less, sonographic Irwin sign negative, common bile duct measures 3-4 mm her lab work overall is unremarkable no elevation to her liver enzymes, lipase is normal, no elevation to her troponin, leukocytosis or other, her you a is negative for bacteria, rbc's and wbc's. Wet mount obtained as patient endorsed having abnormal vaginal discharge and states that she had blood in it a few days ago. This is negative for clue cells, Trichomonas, yeast, or WBCs. No peritoneal signs on abdominal exam. Patient remains p.o. tolerant. Serial abdominal exam without increase in abdominal pain. Given history and exam, low suspicion for acute abdominal process, such as acute cholecystitis, pancreatitis, perforated viscus, atypical appendicitis, colitis, diverticulitis or torsion. Extensive conversation about ER return precautions and need for close follow-up. This is most likely gastritis versus heartburn related to reflux or peptic ulcer disease. Recommend starting omeprazole b.i.d. for the next 2 weeks and reducing to once a day if her symptoms have resolved, following up with her primary care provider for nicki ting for H pylori if her symptoms persist. She is not had any blood in her stool, and without vomiting. Patient is appropriate and amenable to discharge home. Vital signs are stable on repeat examination is unremarkable. Patient has been informed of results. Patient has been given strict return to ER precautions for any new or worsening symptoms. Patient understands to follow up closely with outpatient providers as instructed. Patient understands plan and agrees to discharge home. All questions and concerns answered at this time. <Elvis Smithbutch, DO - Last Filed: 10/29/22 14:34> Lab Data Labs: Lab Results 10/29/22 10/29/22 10/29/22 Range/Units 12:43 12:52 12:52 WBC 9.6 (4.5-11.0) X10^3/uL RBC 5.38 H (4.0-5.2) X10^6/uL Hgb 14.4 (12.0-16.0) g/dL Hct 43.2 (36-46) % MCV 80.2 (80-100) fL MCH 26.8 (26-34) PG MCHC 33.5 (30-36) % RDW 14.0 (11.6-14.8) % Plt Count 334 (150-400) X10^3/uL Neut % (Auto) 69.0 (50-75) % Lymph % (Auto) 23.0 L (25-40) % Phillips % (Auto) 5.0 (3-14) % Eos % (Auto) 2.2 (2-4) % Baso % (Auto) 0.8 (0-2) % Neut # (Auto) 6600 (1622-4107) /uL Lymph # (Auto) 2200 (2336-2962) /uL Phillips # (Auto) 500 (0-900) /uL Eos # (Auto) 200 (0-450) /uL Baso # (Auto) 100 (0-100) /uL PT 13.4 H (10.1-12.7) SECONDS INR 1.2 (0.9-1.3) APTT 33 (26-36) SECONDS Sodium (137-145) mmol/L Potassium (3.4-5.1) mmol/L Chloride (98-107) mmol/L Carbon Dioxide (22-32) mmol/L BUN (7-17) mg/dL Creatinine (0.52-1.04) mg/dL Estimated GFR (>60) mL/min BUN/Creatinine Ratio (6-22) Glucose (70-100) mg/dL Calcium (8.4-10.2) mg/dL Magnesium (1.6-2.3) mg/dL Total Bilirubin (0.2-1.3) mg/dL AST (14-36) IU/L ALT (<35) IU/L Alkaline Phosphatase (38-126) U/L Total Creatine Kinase (30-135) U/L CK-MB (CK-2) CK-MB (CK-2) Rel Index Troponin I (0.01-0.034) ng/mL Total Protein (6.3-8.2) g/dL Albumin (3.5-5.0) g/dL Globulin (1.7-4.1) g/dL Albumin/Globulin Ratio (1.0-2.8) Lipase (23-300) U/L Urine RBC (0-5/HPF) Urine WBC (0-5/HPF) Urine Bacteria (None) Ur Culture Indicated? Micro UA Comment SARS-CoV-2 (PCR) Negative (Negative) 10/29/22 10/29/22 Range/Units 12:52 13:50 WBC (4.5-11.0) X10^3/uL RBC (4.0-5.2) X10^6/uL Hgb (12.0-16.0) g/dL Hct (36-46) % MCV (80-100) fL MCH (26-34) PG MCHC (30-36) % RDW (11.6-14.8) % Plt Count (150-400) X10^3/uL Neut % (Auto) (50-75) % Lymph % (Auto) (25-40) % Phillips % (Auto) (3-14) % Eos % (Auto) (2-4) % Baso % (Auto) (0-2) % Neut # (Auto) (7537-6389) /uL Lymph # (Auto) (0142-3922) /uL Phillips # (Auto) (0-900) /uL Eos # (Auto) (0-450) /uL Baso # (Auto) (0-100) /uL PT (10.1-12.7) SECONDS INR (0.9-1.3) APTT (26-36) SECONDS Sodium 140 (137-145) mmol/L Potassium 4.0 (3.4-5.1) mmol/L Chloride 104 (98-107) mmol/L Carbon Dioxide 25 (22-32) mmol/L BUN 8 (7-17) mg/dL Creatinine 0.76 (0.52-1.04) mg/dL Estimated GFR > 60 (>60) mL/min BUN/Creatinine Ratio 10.5 (6-22) Glucose 92 (70-100) mg/dL Calcium 9.2 (8.4-10.2) mg/dL Magnesium 1.8 (1.6-2.3) mg/dL Total Bilirubin 0.4 (0.2-1.3) mg/dL AST 24 (14-36) IU/L ALT 20 (<35) IU/L Alkaline Phosphatase 107 (38-126) U/L Total Creatine Kinase 69 (30-135) U/L CK-MB (CK-2) TNP CK-MB (CK-2) Rel Index TNP Troponin I < 0.012 (0.01-0.034) ng/mL Total Protein 9.3 H (6.3-8.2) g/dL Albumin 4.9 (3.5-5.0) g/dL Globulin 4.4 H (1.7-4.1) g/dL Albumin/Globulin Ratio 1.1 (1.0-2.8) Lipase 197 (23-300) U/L Urine RBC None seen (0-5/HPF) Urine WBC None seen (0-5/HPF) Urine Bacteria None seen (None) Ur Culture Indicated? Cult not indicated Micro UA Comment Microscopic normal SARS-CoV-2 (PCR) (Negative) Point of Care Testing Test Results Negative Urine Dip Bedside Urine Glucose Negative Bedside Urine Bilirubin - Negative Bedside Urine Ketone - Negative Urine Specific Kittery 1.015 Bedside Urine Occult Blood - Negative Bedside Urine pH 6.0 Bedside Urine Protein - Negative Bedside Urine Urobilinogen - Negative Bedside Urine Nitrite - Negative Bedside Urine Leukocytes - Negative Esterase Discharge Plan Departure Patient Disposition: Home Clinical Impression: Acute epigastric pain Instructions: Avoiding Foods That Cause Heartburn, Heartburn -- Overview, GERD Diet Activity Restrictions/Additional Instructions: *You have been diagnosed with heartburn and epigastric pain, likely related to a stomach ulcer or gastritis. Please take omeprazole each morning and you can take each night as well for as long as you are having these symptoms. Please continue taking 20 mg of omeprazole in the morning if you would like to prevent excess acid buildup. It is okay to use Maalox or Tums throughout the day to help treat your symptoms. Please follow-up with DEVENDRA tipton, consider having testing for H pylori if your symptoms do not improve. Avoid smoking and caffeine with high doses of ibuprofen, these can all increase chances of ulcer. I hope you feel better soon, I have sent your medications to the pharmacy. The medicine called Carafate that is below is similar to Tums or Maalox, the idea is to coat your stomach an prevent painful burning. Your urine, blood work, vaginal discharge past, and ultrasound test of your gallbladder were all normal and this is good news, I hope that you start feeling better soon. *What to do: *Please continue to take your regular medications as directed. [ x] New medication prescriptions sent to your pharmacy: [ [facility]] [ ] New medication written as a paper prescription [ ] No new medications given *Please follow up with your primary care provider in 2-3 days, call for an appointment. Let them know you were seen in the Emergency Department and that we asked that you be seen for follow-up. We will electronically transmit a record of today's note if your PCP is in our system *If you do not have a primary care provider please contact [phone] to establish care with one of [facility] primary care providers. *Return to Emergency Department if you should have any new, worsening, or concerning symptoms, such as [fever greater than 101F, chills, worsening pain, persistent vomiting or other bothersome symptoms]. Prescriptions: New omeprazole 20 mg capsule,delayed release(DR/EC) 20 mg PO BID Qty: 60 0RF sucralfate [Carafate] 1 gram tablet 1 g PO TID PRN (Reason: heart burn) Qty: 60 0RF No Action nitrofurantoin monohyd/m-cryst [Macrobid] 100 mg capsule 100 mg PO BID Qty: 14 0RF Rx Instructions: must administer with a meal/food albuterol sulfate 90 mcg/actuation HFA aerosol inhaler 2 puff INHALATION Q4-6H PRN (Reason: shortness of breath or wheezing) Qty: 8.5 0RF albuterol sulfate 90 mcg/actuation aerosol powdr breath activated 2 inh inhalation Q4-6H PRN (Reason: shortness of breath or wheezing) Qty: 1 0RF ondansetron HCl [Zofran] 4 mg tablet 4 mg PO Q6-8H Qty: 7 0RF Referrals: Claudia Bonner PA-C [Non-Staff] - Visit Report Forms: Patient Portal/API <Elvis Edouard, DO - Last Filed: 10/29/22 14:34> Cosign ED Attending Cosignature Attestation: Dr Edouard Co-Sign Statement: I was available for consultation during this patient's emergency department visit. This chart is signed by myself for administrative purposes only. I did not have direct contact with this patient during this visit. They were seen independently by the APC.
--- NOTE | 2022-10-29 12:57 | PC.NURSE ---
Pt states CP intermittently over the past few days. Uncertain if it is indigestion. Recently seen @ [facility] for cardiac work-up. Provider at the bedside.
[2022-10-29 13:01] LABS: Add Manual Diff / Slide Review NO; Basophils Absolute Auto 100 /uL (0-100); Basophils Percent Auto 0.8 % (0-2); Eosinophils Absolute Auto 200 /uL (0-450); Eosinophils Percent Auto 2.2 % (2-4); Hematocrit 43.2 % (36-46); Hemoglobin 14.4 g/dL (12.0-16.0); Lymphocytes Absolute Auto 2200 /uL (1100-4500); Mean Corpuscular HGB Conc 33.5 % (30-36); Mean Corpuscular Hemoglobin 26.8 PG (26-34); Mean Corpuscular Volume 80.2 fL (80-100); Monocytes Absolute Auto 500 /uL (0-900); Neutrophils Absolute Auto 6600 /uL (1500-7000); Platelet Count 334 X10^3/uL (150-400); Red Blood Cell Count 5.38 X10^6/uL (4.0-5.2); White Blood Cell Count 9.6 X10^3/uL (4.5-11.0)
[2022-10-29 13:07] LABS: INR 1.2 (0.9-1.3); Prothrombin Time 13.4 SECONDS (10.1-12.7)
[2022-10-29 13:10] LABS: PTT Partial Thromboplastin Tim 33 SECONDS (26-36)
[2022-10-29 13:11] LABS: Alanine Aminotransferase 20 IU/L (<35); Albumin 4.9 g/dL (3.5-5.0); Albumin Globulin Ratio 1.1 (1.0-2.8); Alkaline Phosphatase 107 U/L (38-126); Aspartate Aminotransferase 24 IU/L (14-36); BUN Creatinine Ratio 10.5 (6-22); Bilirubin Total 0.4 mg/dL (0.2-1.3); Blood Urea Nitrogen 8 mg/dL (7-17); Calcium 9.2 mg/dL (8.4-10.2); Carbon Dioxide 25 mmol/L (22-32); Chloride 104 mmol/L (98-107); Creatine Kinase 69 U/L (30-135); Estimated Glomerular Filt Rate > 60 mL/min (>60); Globulin 4.4 g/dL (1.7-4.1); Glucose 92 mg/dL (70-100); HEMOLYSIS 24 (0-50); Lipase 197 U/L (23-300); Magnesium 1.8 mg/dL (1.6-2.3); Sodium 140 mmol/L (137-145); Total Protein 9.3 g/dL (6.3-8.2)
[2022-10-29] MEDS: KETOROLAC 30 MG/ML VIAL 15 MG IV (13:18)
[2022-10-29] MEDS: PANTOPRAZOLE 40 MG VIAL IV (13:18)
[2022-10-29] MEDS: ONDANSETRON 4 MG/2 ML INJ IV (13:18)
[2022-10-29 13:23] LABS: Troponin I < 0.012 ng/mL (0.01-0.034)
[2022-10-29 13:44] LABS: COVID19 -Nasal RAPID Negative (Negative)
[2022-10-29 14:08] LABS: Bacteria Urine None Seen; Culture Indicated Urine Cult Not Indicated; RBC Urine None Seen (0-5/HPF); Urine Comments Microscopic Normal; WBC Urine None Seen (0-5/HPF)
[2022-10-29 14:28] VITALS: PULSE 88; O2SAT 97
[2022-10-29 14:29] VITALS: BP 149/78; PULSE 75; O2SAT 100
== END 2022-10-29 14:39 | disposition home or self-care (01) ==
PROVIDERS: Emergency Medicine; Emergency Provider Nurse Practitioner Critical Care Medicine
DX: R10.13 Epigastric pain (principal); Z20.822 Contact with and (suspected) exposure to COVID-19
CPT/HCPCS: 36415; 71045; 76705; 80053; 81003; 81015; 81025; 82550; 83690; 83735; 84484; 85025; 85610; 85730; 87210; 87635; 93005; 96374; 96375; 99284; C9803; C9113; J1885; J2405

== ENCOUNTER 2022-11-03 20:06 | Emergency (ER) | payer OTHER, MEDICAID, SELFPAY ==
[2022-11-03 20:26] VITALS: BP 176/107; PULSE 130; RESP 26; TEMP 37.3; O2SAT 100; BMI 40.3
[2022-11-03 21:37] LABS: Influenza A - CEPHEID Flu A POSITIVE (NEGATIVE); Influenza B - CEPHEID Flu B NEGATIVE (NEGATIVE); Respiratory Syncytial Virus Negative (Negative)
[2022-11-03 21:56] LABS: COVID-19 CEPHEID 4-PLEX PCR Negative (Negative)
--- NOTE | 2022-11-03 22:44 | DI.RAD.S_ITS ---
PROCEDURE: XR CHEST 1V INDICATIONS: suspected sepsis TECHNIQUE: One view of the chest was acquired. COMPARISON: [facility], CR, XR CHEST 1V, 10/29/2022, 13:18. FINDINGS: Surgical changes and devices: None. Lungs and pleura: Lungs are clear. No pleural effusions or pneumothorax. Mediastinum: Mediastinal contours appear normal. Heart size is normal. Bones and chest wall: No suspicious bony lesions. Overlying soft tissues appear unremarkable. IMPRESSION: 1. No acute cardiopulmonary disease. Dictated by: Eric Steen M.D. on 11/04/2022 at 1:20 Approved by: Eric Steen M.D. on 11/04/2022 at 1:20
== END 2022-11-03 22:50 | disposition left against medical advice (07) ==
PROVIDERS: Emergency Provider Emergency Medicine
DX: J10.1 Influenza due to other identified influenza virus with other respiratory manifestations (principal); R07.89 Other chest pain; Z20.822 Contact with and (suspected) exposure to COVID-19
CPT/HCPCS: 0241U; 36415; 71045; 99281

== ENCOUNTER 2023-02-01 13:10 | Emergency (ER) | payer OTHER, MEDICAID, SELFPAY ==
[2023-02-01 13:16] VITALS: PULSE 87; RESP 20; TEMP 36.6; O2SAT 98; BMI 40.3
--- NOTE | 2023-02-01 14:38 | ED.HEATRA ---
HPI - Head Injury <SONDRA Rapp - Last Filed: 02/01/23 14:42> General Chief complaint: Head Injury Stated complaint: Wood fell on her head and thinks has a concusion Time Seen by Provider: 02/01/23 14:16 Source: patient Mode of arrival: Ambulatory History of Present Illness HPI Narrative: 22-year-old female, former smoker, presents to the emergency department after having two 4 x 4 posts fall from her workshop overhead and hit her in the head. Patient denies any loss of consciousness, change in vision, Immediate vomiting or inability to stay awake. Patient denies any bleeding from her scalp. Related Data Previous Rx's Medication Instructions Recorded ondansetron HCl 4 mg tablet 4 mg PO Q6-8H nausea #7 tabs 08/31/21 (Zofran) nitrofurantoin 100 mg PO BID #14 caps 11/19/21 monohydrate/macrocrystals 100 mg capsule (Macrobid) albuterol sulfate 90 mcg/actuation 2 puff inhalation Q4-6H PRN 04/13/22 aerosol inhaler shortness of breath or wheezing #8.5 grams albuterol sulfate 90 mcg/actuation 2 inh inhalation Q4-6H PRN 05/16/22 breath activated powder inhaler shortness of breath or wheezing #1 ea omeprazole 20 mg capsule,delayed 20 mg PO BID #60 caps 10/29/22 release sucralfate 1 gram tablet (Carafate) 1 g PO TID PRN heart burn #60 tabs 10/29/22 Allergies Allergy/AdvReac Type Severity Reaction Status Date / Time Penicillins [PENICILLINS] Allergy Unknown Anaphylaxis Verified 02/01/23 13:21 Review of Systems <SONDRA Rapp - Last Filed: 02/01/23 14:42> Review of Systems Narrative: Narrative: See HPI. GENERAL: Denies chills, fatigue, fever, sweats. HEENT: Denies sinus pain, ear pain, sore throat, difficulty swallowing, dizziness. RESPIRATORY: Denies dyspnea, cough, wheezing, sputum. CARDIOVASCULAR: Denies chest pain, palpitations, edema. GASTROINTESTINAL: Denies nausea, vomiting, abdominal pain, diarrhea, constipation. : Denies dysuria, frequency, incontinence, hematuria, urinary retention, flank pain. MSK: Denies weakness, joint pain, or bony pain. SKIN: Denies rash, skin lesions, or pruritis. NEUROLOGIC: Denies weakness, dizziness, numbness, confusion. Endorses headache. PSYCHIATRIC: No concerning psychosocial issues. Patient History <SONDRA Rapp - Last Filed: 02/01/23 14:42> Medical History Healthy adolescent Nephrolithiasis Surgical History No history of previous surgery Social History Smoking Status: Former smoker Smoking Status: Former smoker tobacco type: cigarettes and vaping alcohol intake frequency: holidays/special occasions only Substance Use Type: does not use Exam <SONDRA Rapp - Last Filed: 02/01/23 14:42> Narrative Exam Narrative: Exam Narrative: GENERAL: This is a well-nourished, well-developed patient, in no acute distress. HEAD: Atraumatic. Normocephalic. EYES: Pupils equal round and reactive. Extraocular motions intact. No scleral icterus, injection or drainage. ENT: Nose without bleeding, purulent drainage. Throat without erythema, tonsillar hypertrophy or exudate. Uvula midline. Airway patent. TMs and canals clear. No sinus tenderness. NECK: Trachea midline. No JVD or lymphadenopathy. Nontender. CARDIOVASCULAR: Regular rate and rhythm without murmurs, peripheral pulses intact, cap refill <2 sec. RESPIRATORY: Breath sounds equal and clear bilaterally. No wheezes, rales, or rhonchi. No cough. No increased respiratory effort. No accessory muscle use. GASTROINTESTINAL: Abdomen soft, non-tender, nondistended without guarding or rebound. No suprapubic pain. MSK: Moves all extremities. Normal range of motion, no clubbing or edema. Neurovascularly intact. NEURO: A&O x 3. script writer II-XI intact bilaterally. SKIN: Warm, dry, no rashes or lesions noted. Initial Vital Signs Initial Vital Signs: Vital Signs Temperature 98 F 02/01/23 13:16 Pulse Rate 87 02/01/23 13:16 Respiratory Rate 20 02/01/23 13:16 Pulse Oximetry 98 02/01/23 13:16 Oxygen Delivery Method Room Air 02/01/23 13:16 Reviewed <Amanda Salcido DO - Last Filed: 02/06/23 07:47> Initial Vital Signs Initial Vital Signs: Vital Signs Temperature 98 F 02/01/23 13:16 Pulse Rate 87 02/01/23 13:16 Respiratory Rate 20 02/01/23 13:16 Pulse Oximetry 98 02/01/23 13:16 Oxygen Delivery Method Room Air 02/01/23 13:16 Course <SONDRA Rapp - Last Filed: 02/01/23 14:42> Vital Signs Vital signs: Vital Signs - 8 hr 02/01/23 13:16 Temperature 98 F Pulse Rate 87 Respiratory Rate 20 Pulse Oximetry 98 Oxygen Delivery Method Room Air <Amanda Salcido DO - Last Filed: 02/06/23 07:47> Vital Signs Vital signs: Vital Signs - 8 hr 02/01/23 13:16 Temperature 98 F Pulse Rate 87 Respiratory Rate 20 Pulse Oximetry 98 Oxygen Delivery Method Room Air MDM - Head Injury <SONDRA Rapp - Last Filed: 02/01/23 14:42> Differential Diagnosis Differential diagnosis: Likely concussion without loss of consciousness, closed head injury and postconcussion syndrome MDM Narrative Medical decision making narrative: 22-year-old female presents to the emergency department with a closed-head injury after two 4 x 4 posts fell onto her head approximately 2 hours ago. Assessment was encouraging and no red flag symptoms noted. No signs of trauma, break in skin, active bleeding and neurologically intact. Discussed plan of care and worsening symptoms that would necessitate a return visit to the emergency department. Patient and boyfriend verbalized understanding and was agreeable with course of action. Discharge Plan Departure Patient Disposition: Home Clinical Impression: Closed head injury Instructions: DI for Closed Head Injury, DI for Postconcussion Syndrome Activity Restrictions/Additional Instructions: *You have been diagnosed with a closed-head injury. My assessment was encouraging and I do not suspect anything dangerous at this time. As we discussed, for worsening symptoms that includes changes in vision, intolerable headache pain, chest pain or shortness of breath, please return to the emergency room immediately. Otherwise, please follow-up with your family doctor as needed. *What to do: *Please continue to take your regular medications as directed. [ ] New medication prescriptions sent to your pharmacy: [ ] [ ] New medication written as a paper prescription [x ] No new medications given *Please follow up with your primary care provider in 2-3 days, call for an appointment. Let them know you were seen in the Emergency Department and that we ask that you be seen in follow up. We will electronically transmit a record of today's note if your PCP is in our system *If you do not have a primary care provider please contact the [facility] Resource line at [phone]. They will ask some questions about your medical history and help get you set up with a doctor in the community. ? Return to ER if you should have any new, worsening or concerning symptoms, such as worsening pain, severe headache, confusion, chest pain, difficulty breathing, fever greater than 101 F, shaking chills, persistent vomiting to the point that you cannot drink fluids, or other new or worsening symptoms. Prescriptions: No Action nitrofurantoin monohyd/m-cryst [Macrobid] 100 mg capsule 100 mg PO BID Qty: 14 0RF Rx Instructions: must administer with a meal/food albuterol sulfate 90 mcg/actuation HFA aerosol inhaler 2 puff INHALATION Q4-6H PRN (Reason: shortness of breath or wheezing) Qty: 8.5 0RF albuterol sulfate 90 mcg/actuation aerosol powdr breath activated 2 inh inhalation Q4-6H PRN (Reason: shortness of breath or wheezing) Qty: 1 0RF ondansetron HCl [Zofran] 4 mg tablet 4 mg PO Q6-8H Qty: 7 0RF omeprazole 20 mg capsule,delayed release(DR/EC) 20 mg PO BID Qty: 60 0RF sucralfate [Carafate] 1 gram tablet 1 g PO TID PRN (Reason: heart burn) Qty: 60 0RF Referrals: Claudia Bonner PA-C [Primary Care Provider] - Stand Alone Forms: Patient Portal/API <Amanda Salcido DO - Last Filed: 02/06/23 07:47> Cosign ED Attending Bassam Attestation: I was immediately available in the department for consultation. Documentation has been reviewed.
[2023-02-01 14:45] VITALS: BP 135/78; PULSE 85; RESP 17; O2SAT 97
== END 2023-02-01 14:45 | disposition home or self-care (01) ==
PROVIDERS: Emergency Provider Registered Nurse; PCP Physician Assistant
DX: S09.90XA Unspecified injury of head, initial encounter (principal); W22.8XXA Striking against or struck by other objects, initial encounter
CPT/HCPCS: 99281; 99283

== ENCOUNTER 2023-03-18 10:44 | Emergency (ER) | payer OTHER, MEDICAID, SELFPAY ==
[2023-03-18 10:54] VITALS: BP 183/100; PULSE 92; RESP 15; TEMP 37; O2SAT 99; BMI 40.3
--- NOTE | 2023-03-18 11:06 | DI.RAD.S_ITS ---
PROCEDURE: XR CHEST 1V INDICATIONS: chest pain TECHNIQUE: One view of the chest was acquired. COMPARISON: [facility], CR, XR CHEST 1V, 11/03/2022, 23:25. FINDINGS: Surgical changes and devices: None. Lungs and pleura: Lungs are clear. No pleural effusions or pneumothorax. Mediastinum: Mediastinal contours appear normal. Heart size is normal. Bones and chest wall: No suspicious bony lesions. Overlying soft tissues appear unremarkable. IMPRESSION: No acute cardiopulmonary disease. Dictated by: Freddie Wilson M.D. on 03/18/2023 at 12:03 Approved by: Freddie Wilson M.D. on 03/18/2023 at 12:04
[2023-03-18 11:33] LABS: Add Manual Diff / Slide Review NO; Basophils Absolute Auto 100 /uL (0-100); Basophils Percent Auto 0.7 % (0-2); Eosinophils Absolute Auto 100 /uL (0-450); Eosinophils Percent Auto 1.7 % (2-4); Hematocrit 41.3 % (36-46); Hemoglobin 13.9 g/dL (12.0-16.0); Lymphocytes Absolute Auto 1500 /uL (1100-4500); Lymphocytes Percent Auto 18.3 % (25-40); Mean Corpuscular HGB Conc 33.6 % (30-36); Mean Corpuscular Hemoglobin 26.6 PG (26-34); Mean Corpuscular Volume 79.1 fL (80-100); Monocytes Absolute Auto 600 /uL (0-900); Monocytes Percent Auto 6.8 % (3-14); Neutrophils Absolute Auto 6000 /uL (1500-7000); Neutrophils Percent Auto 72.5 % (50-75); Platelet Count 288 X10^3/uL (150-400); Red Blood Cell Count 5.22 X10^6/uL (4.0-5.2); Red Cell Distribution Width 14.5 % (11.6-14.8); White Blood Cell Count 8.3 X10^3/uL (4.5-11.0)
[2023-03-18 11:42] LABS: INR 1.2 (0.9-1.3); Prothrombin Time 13.2 SECONDS (10.1-12.7)
[2023-03-18 11:44] LABS: Alanine Aminotransferase 23 IU/L (<35); Albumin 4.4 g/dL (3.5-5.0); Albumin Globulin Ratio 1.2 (1.0-2.8); Alkaline Phosphatase 85 U/L (38-126); Aspartate Aminotransferase 23 IU/L (14-36); Bilirubin Total 0.5 mg/dL (0.2-1.3); Blood Urea Nitrogen 8 mg/dL (7-17); Calcium 8.9 mg/dL (8.4-10.2); Carbon Dioxide 22 mmol/L (22-32); Chloride 106 mmol/L (98-107); Creatine Kinase 63 U/L (30-135); Estimated Glomerular Filt Rate > 60 mL/min (>60); Globulin 3.7 g/dL (1.7-4.1); Glucose 94 mg/dL (70-100); HEMOLYSIS < 15 (0-50); Lipase 173 U/L (23-300); Magnesium 1.9 mg/dL (1.6-2.3); Potassium 3.8 mmol/L (3.4-5.1); Sodium 137 mmol/L (137-145); Total Protein 8.1 g/dL (6.3-8.2)
[2023-03-18 11:45] LABS: PTT Partial Thromboplastin Tim 32 SECONDS (26-36)
[2023-03-18 11:55] LABS: Troponin I < 0.012 ng/mL (0.01-0.034)
--- NOTE | 2023-03-18 12:35 | DI.CT.S_ITS ---
PROCEDURE: CT HEAD/BRAIN WO CON INDICATIONS: headache TECHNIQUE: Noncontrast 4.5 mm thick angled axial sections acquired from the foramen magnum to the vertex, with coronal and sagittal reformats. For radiation dose reduction, the following was used: automated exposure control, adjustment of mA and/or kV according to patient size. COMPARISON: None. FINDINGS: Image quality: Excellent. CSF spaces: Basal cisterns are patent. A presumed benign arachnoid cyst can be seen on the left superiorly, measuring up to 2 cm. Ventricles are normal in size and shape. Brain: No midline shift. No intracranial masses or hemorrhage. Zheng-white matter interface is normal. 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 Skull and face: Calvarium and visualized facial bones are intact, without suspicious lesions. Sinuses: Visualized sinuses and mastoids are clear. IMPRESSION: No imaging explanation is found for the patient's presenting history of headache. Additional findings: 2 cm presumed benign arachnoid cyst on the left superiorly Left choroid plexus lipoma Dictated by: Dre Ford M.D. on 03/18/2023 at 12:09 Approved by: Dre Ford M.D. on 03/18/2023 at 12:11
[2023-03-18] MEDS: ACETAMINOPHEN 325 MG TABLET 975 MG PO (12:44)
[2023-03-18] MEDS: diphenhydrAMINE 50 MG/ML VIAL 25 MG IV (12:45)
[2023-03-18] MEDS: DEXAMETHASONE 10 MG/ML VIAL IV (12:45)
[2023-03-18] MEDS: KETOROLAC 30 MG/ML VIAL 15 MG IV (12:46)
[2023-03-18] MEDS: METOCLOPRAMIDE 10 MG/2 ML INJ IV (12:46)
[2023-03-18] MEDS: SODIUM CHLORIDE 0.9% 1,000 ML 1000 ML IV (12:47)
[2023-03-18 13:26] LABS: RBC Urine None Seen (0-5/HPF); WBC Urine 1-5/HPF (0-5/HPF)
[2023-03-18 13:27] LABS: Bacteria Urine Moderate (10-30); Culture Indicated Urine Specimen Cultured; Squamous Epithelial Cell Urine 1-5 /HPF (0-5/HPF)
[2023-03-18 13:32] VITALS: BP 122/75; PULSE 68; O2SAT 100
[2023-03-18 16:10] VITALS: BP 122/69; PULSE 79; O2SAT 98
--- NOTE | 2023-03-18 16:19 | ED.DIZZY ---
HPI - Dizziness <Leonie Edwards PA-C - Last Filed: 03/18/23 16:26> General Chief Complaint: Dizziness Stated Complaint: pressure/headaches, eyes spinning, Mar concussion Time Seen by Provider: 03/18/23 12:10 Source: patient Mode of arrival: Ambulatory History of Present Illness HPI Narrative: 23-year-old female presents to the ED with headache for several days. Patient states that she suffered a concussion in January after a 2 x 4 fell on her head, following which she has had daily headaches. Patient states she takes 400 mg of ibuprofen once in awhile, however it does not completely resolve her headache. Patient awoke this morning to some dizziness which she describes as the room spinning around her along with nausea, headache. Patient's dizziness and nausea resolved after about 10 minutes but the headache remained. Patient denies fever, chills, chest pain, shortness of breath, dysuria, abdominal pain, syncope. Patient states she is had some past episodes of syncope subsequent to feeling lightheaded. The 1st episode was in 2018 and the 2nd was in December of 2022. Patient did not have loss of consciousness today. Patient states that she has noted high blood pressure over the last few months, which is being followed by her primary care provider. Related Data Previous Rx's Medication Instructions Recorded ondansetron HCl 4 mg tablet 4 mg PO Q6-8H nausea #7 tabs 08/31/21 (Zofran) nitrofurantoin 100 mg PO BID #14 caps 11/19/21 monohydrate/macrocrystals 100 mg capsule (Macrobid) albuterol sulfate 90 mcg/actuation 2 puff inhalation Q4-6H PRN 04/13/22 aerosol inhaler shortness of breath or wheezing #8.5 grams albuterol sulfate 90 mcg/actuation 2 inh inhalation Q4-6H PRN 05/16/22 breath activated powder inhaler shortness of breath or wheezing #1 ea omeprazole 20 mg capsule,delayed 20 mg PO BID #60 caps 10/29/22 release sucralfate 1 gram tablet (Carafate) 1 g PO TID PRN heart burn #60 tabs 10/29/22 meclizine 12.5 mg tablet 12.5 mg PO TID PRN dizziness #20 03/18/23 tabs Allergies Allergy/AdvReac Type Severity Reaction Status Date / Time Penicillins [PENICILLINS] Allergy Unknown Anaphylaxis Verified 03/18/23 10:59 Review of Systems <Leonie Edwards PA-C - Last Filed: 03/18/23 16:26> Review of Systems ROS Unobtainable: All systems reviewed & are unremarkable except as noted in HPI and below Constitutional Constitutional: Denies chills, Denies fatigue, Denies fever(s), Denies frequent falls, Reports headache(s), Denies lethargy and Denies weakness Eyes Eyes: Denies change in vision, Denies eye discharge, Denies irritation and Denies loss of vision ENT Ears, Nose, Mouth, and Throat: Denies change in voice, Reports dizziness, Reports headache(s), Denies neck pain, Denies sore throat and Denies throat swelling Cardiovascular Cardiovascular: Denies chest pain, Denies irregular heart rhythm, Denies lightheadedness, Denies palpitations, Denies dyspnea, Denies dyspnea on exertion and Denies orthopnea Respiratory Respiratory: Denies cough, Denies dyspnea, Denies dyspnea on exertion and Denies wheezing Gastrointestinal Gastrointestinal: Denies abdominal pain, Denies change in bowel habits, Denies diarrhea, Reports nausea and Denies vomiting Genitourinary Genitourinary: Denies hematuria, Denies flank pain, Denies urinary incontinence and Denies urinary urgency Musculoskeletal Musculoskeletal: Denies back pain, Denies muscle weakness, Denies neck pain, Denies numbness and Denies tingling Integumentary/Breasts Skin/Breast: Denies pruritus, Denies erythema, Denies rash and Denies wounds Neurologic Neurologic: Denies behavioral changes, Denies confusion, Reports dizziness, Denies frequent falls, Reports headache(s), Denies loss of vision, Denies numbness, Denies tingling and Denies weakness Psychiatric Psychiatric: Denies anxiety, Denies behavioral changes, Denies confusion, Denies depression, Denies homicidal ideation and Denies suicidal ideation Endocrine Endocrine: Denies fatigue, Denies flushing and Denies palpitations Hematologic/Lymphatic Hematologic/Lymphatic: Denies easy bruising Allergic/Immunologic Allergic/Immunologic: Denies urticaria, Denies throat swelling and Denies wheezing Patient History <Leonie Edwards PA-C - Last Filed: 03/18/23 16:26> Medical History Healthy adolescent Nephrolithiasis Surgical History No history of previous surgery Social History Smoking Status: Former smoker Smoking Status: Former smoker tobacco type: cigarettes and vaping alcohol intake frequency: holidays/special occasions only Substance Use Type: does not use Exam <Leonie Edwards PA-C - Last Filed: 03/18/23 16:26> Narrative Exam Narrative: Const General:?cooperative, healthy appearing and comfortable [facility] Head:?normal to inspection Ears:?hearing grossly normal bilaterally Nose:?external nose normal Face and sinus:?normal facial exam and sinuses nontender Mouth:?oral mucosae normal Throat:?posterior oropharynx normal Eyes General:?appearance normal, both eyes and all related structures Neck Neck:?normal visual inspection and no lymphadenopathy noted Resp Effort & Inspection:?normal respiratory effort Auscultation:?clear to auscultation bilaterally Cardio Rate:?regular rate Rhythm:?regular rhythm Neuro General:?patient alert, patient awake and patient oriented x3; PERRLA; CN 1 through 12 intact bilaterally; gait normal; negative [id number]; strength and sensation intact; full range of motion. Patient is neurologically intact. Initial Vital Signs Initial Vital Signs: Vital Signs Temperature 98.6 F 03/18/23 10:54 Pulse Rate 92 H 03/18/23 10:54 Respiratory Rate 15 03/18/23 10:54 Blood Pressure 183/100 H 03/18/23 10:54 Pulse Oximetry 99 03/18/23 10:54 Oxygen Delivery Method Room Air 03/18/23 10:54 <Chris Wheeler MD - Last Filed: 03/31/23 12:12> Initial Vital Signs Initial Vital Signs: Vital Signs Temperature 98.6 F 03/18/23 10:54 Pulse Rate 92 H 03/18/23 10:54 Respiratory Rate 15 03/18/23 10:54 Blood Pressure 183/100 H 03/18/23 10:54 Pulse Oximetry 99 03/18/23 10:54 Oxygen Delivery Method Room Air 03/18/23 10:54 Course <Leonie Edwards PA-C - Last Filed: 03/18/23 16:26> Orders Ordered: Discontinued Medications Acetaminophen (Acetaminophen 325 Mg Tablet) 975 mg PO NOW ONE Stop: 03/18/23 12:37 Last Admin: 03/18/23 12:44 Dose: 975 mg Documented By: STEVE Dexamethasone (Dexamethasone 10 Mg/Ml Vial) 10 mg IV NOW ONE Stop: 03/18/23 12:37 Last Admin: 03/18/23 12:45 Dose: 10 mg Documented By: STEVE Diphenhydramine HCl (Diphenhydramine 50 Mg/Ml Vial) 25 mg IV NOW ONE Stop: 03/18/23 12:37 Last Admin: 03/18/23 12:45 Dose: 25 mg Documented By: STEVE Sodium Chloride (Normal Saline 0.9%) 1,000 mls @ 1,000 mls/hr IV BOLUS ONE Stop: 03/18/23 13:35 Last Infusion: 03/18/23 14:13 Dose: 0 mls/hr Documented By: Admin: 03/18/23 12:47 Dose: 1,000 mls/hr Documented By: STEVE Ketorolac Tromethamine (Ketorolac 30 Mg/Ml Vial) 15 mg IV NOW ONE Stop: 03/18/23 12:37 Last Admin: 03/18/23 12:46 Dose: 15 mg Documented By: STEVE Metoclopramide HCl (Metoclopramide 10 Mg/2 Ml Inj) 10 mg IV NOW ONE Stop: 03/18/23 12:37 Last Admin: 03/18/23 12:46 Dose: 10 mg Documented By: STEVE Vital Signs Vital signs: Vital Signs - 8 hr 03/18/23 10:54 03/18/23 13:32 03/18/23 16:10 Temperature 98.6 F Pulse Rate 92 H 68 79 Respiratory Rate 15 Blood Pressure 183/100 H 122/75 122/69 Pulse Oximetry 99 100 98 Oxygen Delivery Method Room Air Room Air Room Air <Chris Wheeler MD - Last Filed: 03/31/23 12:12> Orders Ordered: Discontinued Medications Acetaminophen (Acetaminophen 325 Mg Tablet) 975 mg PO NOW ONE Stop: 03/18/23 12:37 Last Admin: 03/18/23 12:44 Dose: 975 mg Documented By: STEVE Dexamethasone (Dexamethasone 10 Mg/Ml Vial) 10 mg IV NOW ONE Stop: 03/18/23 12:37 Last Admin: 03/18/23 12:45 Dose: 10 mg Documented By: STEVE Diphenhydramine HCl (Diphenhydramine 50 Mg/Ml Vial) 25 mg IV NOW ONE Stop: 03/18/23 12:37 Last Admin: 03/18/23 12:45 Dose: 25 mg Documented By: STEVE Sodium Chloride (Normal Saline 0.9%) 1,000 mls @ 1,000 mls/hr IV BOLUS ONE Stop: 03/18/23 13:35 Last Infusion: 03/18/23 14:13 Dose: 0 mls/hr Documented By: Admin: 03/18/23 12:47 Dose: 1,000 mls/hr Documented By: STEVE Ketorolac Tromethamine (Ketorolac 30 Mg/Ml Vial) 15 mg IV NOW ONE Stop: 03/18/23 12:37 Last Admin: 03/18/23 12:46 Dose: 15 mg Documented By: STEVE Metoclopramide HCl (Metoclopramide 10 Mg/2 Ml Inj) 10 mg IV NOW ONE Stop: 03/18/23 12:37 Last Admin: 03/18/23 12:46 Dose: 10 mg Documented By: STEVE Vital Signs Vital signs: Vital Signs - 8 hr 03/18/23 10:54 03/18/23 13:32 03/18/23 16:10 Temperature 98.6 F Pulse Rate 92 H 68 79 Respiratory Rate 15 Blood Pressure 183/100 H 122/75 122/69 Pulse Oximetry 99 100 98 Oxygen Delivery Method Room Air Room Air Room Air MDM - Dizziness <Leonie Edwards PA-C - Last Filed: 03/18/23 16:26> Lab Data 03/18/23 11:24 03/18/23 11:24 Labs: Lab Results 03/18/23 03/18/23 03/18/23 Range/Units 11:24 11:24 11:24 WBC 8.3 (4.5-11.0) X10^3/uL RBC 5.22 H (4.0-5.2) X10^6/uL Hgb 13.9 (12.0-16.0) g/dL Hct 41.3 (36-46) % MCV 79.1 L (80-100) fL MCH 26.6 (26-34) PG MCHC 33.6 (30-36) % RDW 14.5 (11.6-14.8) % Plt Count 288 (150-400) X10^3/uL Neut % (Auto) 72.5 (50-75) % Lymph % (Auto) 18.3 L (25-40) % [place] % (Auto) 6.8 (3-14) % Eos % (Auto) 1.7 L (2-4) % Baso % (Auto) 0.7 (0-2) % Neut # (Auto) 6000 (1597-2966) /uL Lymph # (Auto) 1500 (9857-1516) /uL [place] # (Auto) 600 (0-900) /uL Eos # (Auto) 100 (0-450) /uL Baso # (Auto) 100 (0-100) /uL PT 13.2 H (10.1-12.7) SECONDS INR 1.2 (0.9-1.3) APTT 32 (26-36) SECONDS Sodium 137 (137-145) mmol/L Potassium 3.8 (3.4-5.1) mmol/L Chloride 106 (98-107) mmol/L Carbon Dioxide 22 (22-32) mmol/L BUN 8 (7-17) mg/dL Creatinine 0.73 (0.52-1.04) mg/dL Estimated GFR > 60 (>60) mL/min BUN/Creatinine Ratio 11.0 (6-22) Glucose 94 (70-100) mg/dL Calcium 8.9 (8.4-10.2) mg/dL Magnesium 1.9 (1.6-2.3) mg/dL Total Bilirubin 0.5 (0.2-1.3) mg/dL AST 23 (14-36) IU/L ALT 23 (<35) IU/L Alkaline Phosphatase 85 (38-126) U/L Total Creatine Kinase 63 (30-135) U/L CK-MB (CK-2) TNP CK-MB (CK-2) Rel Index TNP Troponin I < 0.012 (0.01-0.034) ng/mL Total Protein 8.1 (6.3-8.2) g/dL Albumin 4.4 (3.5-5.0) g/dL Globulin 3.7 (1.7-4.1) g/dL Albumin/Globulin Ratio 1.2 (1.0-2.8) Lipase 173 (23-300) U/L Urine RBC (0-5/HPF) Urine WBC (0-5/HPF) Ur Squamous Epith Cells (0-5/HPF) Urine Bacteria (None) Urine Yeast (None) Ur Culture Indicated? 03/18/23 Range/Units 12:09 WBC (4.5-11.0) X10^3/uL RBC (4.0-5.2) X10^6/uL Hgb (12.0-16.0) g/dL Hct (36-46) % MCV (80-100) fL MCH (26-34) PG MCHC (30-36) % RDW (11.6-14.8) % Plt Count (150-400) X10^3/uL Neut % (Auto) (50-75) % Lymph % (Auto) (25-40) % [place] % (Auto) (3-14) % Eos % (Auto) (2-4) % Baso % (Auto) (0-2) % Neut # (Auto) (9296-5431) /uL Lymph # (Auto) (3472-3876) /uL [place] # (Auto) (0-900) /uL Eos # (Auto) (0-450) /uL Baso # (Auto) (0-100) /uL PT (10.1-12.7) SECONDS INR (0.9-1.3) APTT (26-36) SECONDS Sodium (137-145) mmol/L Potassium (3.4-5.1) mmol/L Chloride (98-107) mmol/L Carbon Dioxide (22-32) mmol/L BUN (7-17) mg/dL Creatinine (0.52-1.04) mg/dL Estimated GFR (>60) mL/min BUN/Creatinine Ratio (6-22) Glucose (70-100) mg/dL Calcium (8.4-10.2) mg/dL Magnesium (1.6-2.3) mg/dL Total Bilirubin (0.2-1.3) mg/dL AST (14-36) IU/L ALT (<35) IU/L Alkaline Phosphatase (38-126) U/L Total Creatine Kinase (30-135) U/L CK-MB (CK-2) CK-MB (CK-2) Rel Index Troponin I (0.01-0.034) ng/mL Total Protein (6.3-8.2) g/dL Albumin (3.5-5.0) g/dL Globulin (1.7-4.1) g/dL Albumin/Globulin Ratio (1.0-2.8) Lipase (23-300) U/L Urine RBC None seen (0-5/HPF) Urine WBC 1-5/hpf (0-5/HPF) Ur Squamous Epith Cells 1-5 /hpf (0-5/HPF) Urine Bacteria Moderate (10-30) H (None) Urine Yeast 1-5/hpf H (None) Ur Culture Indicated? Specimen cultured Point of Care Testing Test Results Negative Urine Dip Bedside Urine Glucose Negative Bedside Urine Bilirubin - Negative Bedside Urine Ketone - Negative Urine Specific [place] 1.005 Bedside Urine Occult Blood - Negative Bedside Urine pH 6.0 Bedside Urine Protein - Negative Bedside Urine Urobilinogen - Negative Bedside Urine Nitrite - Negative Bedside Urine Leukocytes + 70 Esterase MDM Narrative Medical decision making narrative: 23-year-old female presents to the ED with headache for several days. Concern for postconcussion syndrome versus peripheral vertigo versus UTI versus versus dehydration versus masses versus other. Will obtain labs, chest x-ray, EKG, urinalysis, urine hCG, head CT. Patient's workup was largely unremarkable, no acute findings. Patient's symptoms resolved with Toradol, Tylenol, Reglan, Benadryl, dexamethasone, IV fluids. Recommend taking ibuprofen 800 mg if the headache recurs, maintain good hydration. Recommend follow-up with PCP to monitor postconcussion syndrome. ED return precautions were discussed with patient. Patient verbalized understanding. Medical records reviewed: Yes <Chris Wheeler MD - Last Filed: 03/31/23 12:12> Lab Data Labs: Lab Results 03/18/23 03/18/23 03/18/23 Range/Units 11:24 11:24 11:24 WBC 8.3 (4.5-11.0) X10^3/uL RBC 5.22 H (4.0-5.2) X10^6/uL Hgb 13.9 (12.0-16.0) g/dL Hct 41.3 (36-46) % MCV 79.1 L (80-100) fL MCH 26.6 (26-34) PG MCHC 33.6 (30-36) % RDW 14.5 (11.6-14.8) % Plt Count 288 (150-400) X10^3/uL Neut % (Auto) 72.5 (50-75) % Lymph % (Auto) 18.3 L (25-40) % [place] % (Auto) 6.8 (3-14) % Eos % (Auto) 1.7 L (2-4) % Baso % (Auto) 0.7 (0-2) % Neut # (Auto) 6000 (6169-6712) /uL Lymph # (Auto) 1500 (6208-7134) /uL [place] # (Auto) 600 (0-900) /uL Eos # (Auto) 100 (0-450) /uL Baso # (Auto) 100 (0-100) /uL PT 13.2 H (10.1-12.7) SECONDS INR 1.2 (0.9-1.3) APTT 32 (26-36) SECONDS Sodium 137 (137-145) mmol/L Potassium 3.8 (3.4-5.1) mmol/L Chloride 106 (98-107) mmol/L Carbon Dioxide 22 (22-32) mmol/L BUN 8 (7-17) mg/dL Creatinine 0.73 (0.52-1.04) mg/dL Estimated GFR > 60 (>60) mL/min BUN/Creatinine Ratio 11.0 (6-22) Glucose 94 (70-100) mg/dL Calcium 8.9 (8.4-10.2) mg/dL Magnesium 1.9 (1.6-2.3) mg/dL Total Bilirubin 0.5 (0.2-1.3) mg/dL AST 23 (14-36) IU/L ALT 23 (<35) IU/L Alkaline Phosphatase 85 (38-126) U/L Total Creatine Kinase 63 (30-135) U/L CK-MB (CK-2) TNP CK-MB (CK-2) Rel Index TNP Troponin I < 0.012 (0.01-0.034) ng/mL Total Protein 8.1 (6.3-8.2) g/dL Albumin 4.4 (3.5-5.0) g/dL Globulin 3.7 (1.7-4.1) g/dL Albumin/Globulin Ratio 1.2 (1.0-2.8) Lipase 173 (23-300) U/L Urine RBC (0-5/HPF) Urine WBC (0-5/HPF) Ur Squamous Epith Cells (0-5/HPF) Urine Bacteria (None) Urine Yeast (None) Ur Culture Indicated? 03/18/23 Range/Units 12:09 WBC (4.5-11.0) X10^3/uL RBC (4.0-5.2) X10^6/uL Hgb (12.0-16.0) g/dL Hct (36-46) % MCV (80-100) fL MCH (26-34) PG MCHC (30-36) % RDW (11.6-14.8) % Plt Count (150-400) X10^3/uL Neut % (Auto) (50-75) % Lymph % (Auto) (25-40) % [place] % (Auto) (3-14) % Eos % (Auto) (2-4) % Baso % (Auto) (0-2) % Neut # (Auto) (6745-3989) /uL Lymph # (Auto) (4127-4228) /uL [place] # (Auto) (0-900) /uL Eos # (Auto) (0-450) /uL Baso # (Auto) (0-100) /uL PT (10.1-12.7) SECONDS INR (0.9-1.3) APTT (26-36) SECONDS Sodium (137-145) mmol/L Potassium (3.4-5.1) mmol/L Chloride (98-107) mmol/L Carbon Dioxide (22-32) mmol/L BUN (7-17) mg/dL Creatinine (0.52-1.04) mg/dL Estimated GFR (>60) mL/min BUN/Creatinine Ratio (6-22) Glucose (70-100) mg/dL Calcium (8.4-10.2) mg/dL Magnesium (1.6-2.3) mg/dL Total Bilirubin (0.2-1.3) mg/dL AST (14-36) IU/L ALT (<35) IU/L Alkaline Phosphatase (38-126) U/L Total Creatine Kinase (30-135) U/L CK-MB (CK-2) CK-MB (CK-2) Rel Index Troponin I (0.01-0.034) ng/mL Total Protein (6.3-8.2) g/dL Albumin (3.5-5.0) g/dL Globulin (1.7-4.1) g/dL Albumin/Globulin Ratio (1.0-2.8) Lipase (23-300) U/L Urine RBC None seen (0-5/HPF) Urine WBC 1-5/hpf (0-5/HPF) Ur Squamous Epith Cells 1-5 /hpf (0-5/HPF) Urine Bacteria Moderate (10-30) H (None) Urine Yeast 1-5/hpf H (None) Ur Culture Indicated? Specimen cultured Point of Care Testing Test Results Negative Urine Dip Bedside Urine Glucose Negative Bedside Urine Bilirubin - Negative Bedside Urine Ketone - Negative Urine Specific [place] 1.005 Bedside Urine Occult Blood - Negative Bedside Urine pH 6.0 Bedside Urine Protein - Negative Bedside Urine Urobilinogen - Negative Bedside Urine Nitrite - Negative Bedside Urine Leukocytes + 70 Esterase Discharge Plan Departure Patient Disposition: Home Clinical Impression: Headache, Dizziness Instructions: DI for Vertigo, DI for Headache Activity Restrictions/Additional Instructions: You were evaluated in the ED today for dizziness and headache. Your CT head, labs, workup was normal. Your headache was likely from the concussion, your headache resolved with medications in the ED. you may take 800 mg of ibuprofen if you think your headache is starting again. Please take the ibuprofen with food so as to not upset your stomach. You may take meclizine for dizziness. Please follow-up with your PCP as soon as possible to follow-up on the concussion. Return to the ED if you have worsening symptoms, chest pain, shortness of breath. Prescriptions: New meclizine 12.5 mg tablet 12.5 mg PO TID PRN (Reason: dizziness) Qty: 20 0RF No Action nitrofurantoin monohyd/m-cryst [Macrobid] 100 mg capsule 100 mg PO BID Qty: 14 0RF Rx Instructions: must administer with a meal/food albuterol sulfate 90 mcg/actuation HFA aerosol inhaler 2 puff INHALATION Q4-6H PRN (Reason: shortness of breath or wheezing) Qty: 8.5 0RF albuterol sulfate 90 mcg/actuation aerosol powdr breath activated 2 inh inhalation Q4-6H PRN (Reason: shortness of breath or wheezing) Qty: 1 0RF ondansetron HCl [Zofran] 4 mg tablet 4 mg PO Q6-8H Qty: 7 0RF omeprazole 20 mg capsule,delayed release(DR/EC) 20 mg PO BID Qty: 60 0RF sucralfate [Carafate] 1 gram tablet 1 g PO TID PRN (Reason: heart burn) Qty: 60 0RF Referrals: Claudia Bonner PA-C [Primary Care Provider] - Stand Alone Forms: Patient Portal/API <Chris Wheeler MD - Last Filed: 03/31/23 12:12> Cosign ED Attending Cosignature Attestation: I was immediately available in the department for consultation. This documentation has been reviewed and I agree with assessment and plan. Supervised by Chris Wheeler MD
== END 2023-03-18 16:10 | disposition home or self-care (01) ==
PROVIDERS: Emergency Medicine; Emergency Provider Student in an Organized Health Care Education/Training Program; PCP Physician Assistant
DX: R51.9 Headache, unspecified (principal); R42 Dizziness and giddiness
CPT/HCPCS: 70450; 71045; 80053; 81003; 81015; 81025; 82550; 83690; 83735; 84484; 85025; 85610; 85730; 87086; 93005; 93010; 96361; 96374; 96375; 99284; J1100; J1200; J1885; J2765

== ENCOUNTER 2023-06-10 22:14 | Emergency (ER) | payer OTHER, MEDICAID, SELFPAY ==
[2023-06-10 22:17] VITALS: BP 162/99; PULSE 92; RESP 15; TEMP 37.1; O2SAT 97; BMI 41.9
[2023-06-10 22:52] LABS: Amorphous Sediment Urine 3+; Bacteria Urine Moderate (10-30); RBC Urine 1-5/HPF (0-5/HPF); Squamous Epithelial Cell Urine 5-10 /HPF (0-5/HPF); WBC Urine None Seen (0-5/HPF)
[2023-06-10 22:53] LABS: Culture Indicated Urine Cult Not Indicated
== END 2023-06-10 23:54 | disposition left against medical advice (07) ==
PROVIDERS: Emergency Provider Emergency Medicine; PCP Physician Assistant
DX: N93.9 Abnormal uterine and vaginal bleeding, unspecified (principal)
CPT/HCPCS: 81003; 81015; 81025; 99282

== ENCOUNTER 2023-08-10 09:19 | Emergency (ER) | payer OTHER, MEDICAID, SELFPAY ==
[2023-08-10 09:30] VITALS: BP 143/86; PULSE 86; RESP 20; TEMP 37.2; O2SAT 99; BMI 40.3
--- NOTE | 2023-08-10 11:26 | ED.EYEPROB ---
HPI - Eye Problem <Leonie Edwards PA-C - Last Filed: 08/10/23 13:53> General Chief complaint: Eye Problems Stated complaint: something wrong RT eye Time Seen by Provider: 08/10/23 11:02 Source: patient Mode of arrival: Ambulatory History of Present Illness HPI Narrative: 23-year-old female presents to the ED with 2 days of right eye irritation, foreign body sensation. Patient states that she suspects that it might be caused by some dust. Patient states that she feels a foreign body sensation in the right upper eyelid and endorses tearing. Denies purulent discharge, change in vision. Patient is having a hard time keeping her eye open due to the irritation. Denies fever, chills, nausea, vomiting. Related Data Previous Rx's Medication Instructions Recorded ondansetron HCl 4 mg tablet 4 mg PO Q6-8H nausea #7 tabs 08/31/21 (Zofran) nitrofurantoin 100 mg PO BID #14 caps 11/19/21 monohydrate/macrocrystals 100 mg capsule (Macrobid) albuterol sulfate 90 mcg/actuation 2 puff inhalation Q4-6H PRN 04/13/22 aerosol inhaler shortness of breath or wheezing #8.5 grams albuterol sulfate 90 mcg/actuation 2 inh inhalation Q4-6H PRN 05/16/22 breath activated powder inhaler shortness of breath or wheezing #1 ea omeprazole 20 mg capsule,delayed 20 mg PO BID #60 caps 10/29/22 release sucralfate 1 gram tablet (Carafate) 1 g PO TID PRN heart burn #60 tabs 10/29/22 meclizine 12.5 mg tablet 12.5 mg PO TID PRN dizziness #20 03/18/23 tabs erythromycin 5 mg/gram (0.5 %) eye 0.5 inch EYE-RIGHT Q6HR 7 days 08/10/23 ointment #3.5 grams Allergies Allergy/AdvReac Type Severity Reaction Status Date / Time Penicillins [PENICILLINS] Allergy Unknown Anaphylaxis Verified 06/10/23 22:17 Review of Systems <Leonie Edwards PA-C - Last Filed: 08/10/23 13:53> Review of Systems ROS Unobtainable: All systems reviewed & are unremarkable except as noted in HPI and below Constitutional Constitutional: Denies chills, Denies fatigue, Denies fever(s), Denies frequent falls, Denies lethargy and Denies weakness Eyes Eyes: Denies change in vision, Reports eye discharge, Denies irritation and Denies loss of vision Comments: R eye irritation, foreign body sensation, tearing ENT Ears, Nose, Mouth, and Throat: Denies change in voice, Denies dizziness, Denies neck pain, Denies sore throat and Denies throat swelling Cardiovascular Cardiovascular: Denies chest pain, Denies irregular heart rhythm, Denies lightheadedness, Denies palpitations, Denies dyspnea, Denies dyspnea on exertion and Denies orthopnea Respiratory Respiratory: Denies cough, Denies dyspnea, Denies dyspnea on exertion and Denies wheezing Gastrointestinal Gastrointestinal: Denies abdominal pain, Denies change in bowel habits, Denies diarrhea, Denies nausea and Denies vomiting Genitourinary Genitourinary: Denies hematuria, Denies flank pain, Denies urinary incontinence and Denies urinary urgency Musculoskeletal Musculoskeletal: Denies back pain, Denies muscle weakness, Denies neck pain, Denies numbness and Denies tingling Integumentary/Breasts Skin/Breast: Denies pruritus, Denies erythema, Denies rash and Denies wounds Neurologic Neurologic: Denies behavioral changes, Denies confusion, Denies dizziness, Denies frequent falls, Denies loss of vision, Denies numbness, Denies tingling and Denies weakness Psychiatric Psychiatric: Denies anxiety, Denies behavioral changes, Denies confusion, Denies depression, Denies homicidal ideation and Denies suicidal ideation Endocrine Endocrine: Denies fatigue, Denies flushing and Denies palpitations Hematologic/Lymphatic Hematologic/Lymphatic: Denies easy bruising Allergic/Immunologic Allergic/Immunologic: Denies urticaria, Denies throat swelling and Denies wheezing Patient History <Leonie Edwards PA-C - Last Filed: 08/10/23 13:53> Medical History (Updated 08/10/23 @ 11:51 by Leonie Edwards PA-C) Healthy adolescent Nephrolithiasis Surgical History No history of previous surgery Social History Smoking Status: Current every day smoker Smoking Status: Current every day smoker tobacco type: cigarettes and vaping alcohol intake frequency: holidays/special occasions only Substance Use Type: does not use Exam <Leonie Edwards PA-C - Last Filed: 08/10/23 13:53> Narrative Exam Narrative: Const General:?cooperative, healthy appearing and comfortable [facility] Head:?normal to inspection Ears:?hearing grossly normal bilaterally Nose:?external nose normal Face and sinus:?normal facial exam and sinuses nontender Mouth:?oral mucosae normal Throat:?posterior oropharynx normal Eyes General:? Vision grossly normal bilaterally. Left eye normal on exam; right eye with mild conjunctival injection, tearing; no pain with extraocular movements; no eyelid erythema Neck Neck:?normal visual inspection and no lymphadenopathy noted Resp Effort & Inspection:?normal respiratory effort Auscultation:?clear to auscultation bilaterally Cardio Rate:?regular rate Rhythm:?regular rhythm Neuro General:?patient alert, patient awake and patient oriented x3 Initial Vital Signs Initial Vital Signs: Vital Signs Temperature 99 F 08/10/23 09:30 Pulse Rate 86 08/10/23 09:30 Respiratory Rate 20 08/10/23 09:30 Blood Pressure 143/86 H 08/10/23 09:30 Pulse Oximetry 99 08/10/23 09:30 Oxygen Delivery Method Room Air 08/10/23 09:30 <Amanda Salcido DO - Last Filed: 08/11/23 07:37> Initial Vital Signs Initial Vital Signs: Vital Signs Temperature 99 F 08/10/23 09:30 Pulse Rate 86 08/10/23 09:30 Respiratory Rate 20 08/10/23 09:30 Blood Pressure 143/86 H 08/10/23 09:30 Pulse Oximetry 99 08/10/23 09:30 Oxygen Delivery Method Room Air 08/10/23 09:30 Course <Leonie Edwards PA-C - Last Filed: 08/10/23 13:53> Orders Ordered: Discontinued Medications Fluorescein Sodium (Fluorescein 1 Mg Strip) 1 mg EYE-RIGHT NOW ONE Stop: 08/10/23 11:22 Last Admin: 08/10/23 11:38 Dose: 1 mg Documented By: GABRIELA Proparacaine HCl (Proparacaine 0.5% Ophth Sunshine) 1 drops EYE-RIGHT NOW ONE Stop: 08/10/23 11:22 Last Admin: 08/10/23 11:37 Dose: 1 drop Documented By: GABRIELA Vital Signs Vital signs: Vital Signs - 8 hr 08/10/23 09:30 08/10/23 12:00 Temperature 99 F Pulse Rate 86 70 Respiratory Rate 20 15 Blood Pressure 143/86 H 122/70 Pulse Oximetry 99 99 Oxygen Delivery Method Room Air Room Air <Amanda Salcido DO - Last Filed: 08/11/23 07:37> Orders Ordered: Discontinued Medications Fluorescein Sodium (Fluorescein 1 Mg Strip) 1 mg EYE-RIGHT NOW ONE Stop: 08/10/23 11:22 Last Admin: 08/10/23 11:38 Dose: 1 mg Documented By: GABRIELA Proparacaine HCl (Proparacaine 0.5% Ophth Sunshine) 1 drops EYE-RIGHT NOW ONE Stop: 08/10/23 11:22 Last Admin: 08/10/23 11:37 Dose: 1 drop Documented By: GABRIELA Vital Signs Vital signs: Vital Signs - 8 hr 08/10/23 09:30 08/10/23 12:00 Temperature 99 F Pulse Rate 86 70 Respiratory Rate 20 15 Blood Pressure 143/86 H 122/70 Pulse Oximetry 99 99 Oxygen Delivery Method Room Air Room Air MDM - Eye Problem <Leonie Edwards PA-C - Last Filed: 08/10/23 13:53> MDM Narrative Medical decision making narrative: 23-year-old female presents to the ED with 2 days of right eye irritation, foreign body sensation. Concern for foreign body versus conjunctival abrasion versus corneal abrasion versus conjunctivitis versus other. Will examined for foreign bodies, perform fluorescein exam. Will reassess. Negative fluorescein exam. No foreign bodies visualized with eyelid eversion. Patient's symptoms could likely be due to dust or other irritant versus conjunctivitis. Recommend using proparacaine for the next 48 hours as needed, but no longer than that. Also prescribed erythromycin eye ointment. Recommend follow-up with ammonia technician. ED return precautions discussed with patient. Patient verbalized understanding. Medical records reviewed: Yes. Discharge Plan Departure Patient Disposition: Home Clinical Impression: Irritation of right eye Instructions: How to Use Eye Ointments and Gels, DI for Foreign Body in the Eye Activity Restrictions/Additional Instructions: You were evaluated in the ED today for right eye irritation. It does not appear that you have any corneal or conjunctival abrasions or visible foreign body in the eye. It is possible that you had a foreign body in the eye such as dust which irritated your eye versus an eye infection such as conjunctivitis. You are being prescribed an antibiotic ointment. You were also being sent home with a proparacaine which is a numbing agent that can provide you symptomatic relief. Please do not use the proparacaine for more than 2 days. You may apply 1 drop to the right eye every 1/2 hour as needed. Please follow-up with your eye doctor as soon as possible. Return to the ED if you have worsening symptoms, vision changes. Prescriptions: New erythromycin 5 mg/gram (0.5 %) ointment 0.5 inch EYE-RIGHT Q6HR 7 Days Qty: 3.5 0RF No Action nitrofurantoin monohyd/m-cryst [Macrobid] 100 mg capsule 100 mg PO BID Qty: 14 0RF Rx Instructions: must administer with a meal/food albuterol sulfate 90 mcg/actuation HFA aerosol inhaler 2 puff INHALATION Q4-6H PRN (Reason: shortness of breath or wheezing) Qty: 8.5 0RF albuterol sulfate 90 mcg/actuation aerosol powdr breath activated 2 inh inhalation Q4-6H PRN (Reason: shortness of breath or wheezing) Qty: 1 0RF meclizine 12.5 mg tablet 12.5 mg PO TID PRN (Reason: dizziness) Qty: 20 0RF ondansetron HCl [Zofran] 4 mg tablet 4 mg PO Q6-8H Qty: 7 0RF omeprazole 20 mg capsule,delayed release(DR/EC) 20 mg PO BID Qty: 60 0RF sucralfate [Carafate] 1 gram tablet 1 g PO TID PRN (Reason: heart burn) Qty: 60 0RF Referrals: Claudia Bonner PA-C [Primary Care Provider] - Stand Alone Forms: Patient Portal/API <Amanda Salcido DO - Last Filed: 08/11/23 07:37> Cosign ED Attending Bassam Attestation: I was immediately available in the department for consultation. Documentation has been reviewed.
[2023-08-10] MEDS: PROPARACAINE 0.5% OPHTH SOL 1 DROPS EYE-RIGHT (11:37)
[2023-08-10] MEDS: FLUORESCEIN 1 MG STRIP EYE-RIGHT (11:38)
[2023-08-10 12:00] VITALS: BP 122/70; PULSE 70; RESP 15; O2SAT 99
== END 2023-08-10 12:01 | disposition home or self-care (01) ==
PROVIDERS: Emergency Provider Student in an Organized Health Care Education/Training Program; PCP Physician Assistant
DX: H57.89 Other specified disorders of eye and adnexa (principal)
CPT/HCPCS: 99282

== ENCOUNTER 2023-08-15 11:17 | Emergency (ER) | payer OTHER, SELFPAY ==
[2023-08-15 11:26] VITALS: BP 144/95; PULSE 82; RESP 18; TEMP 36.8; O2SAT 99; BMI 40.3
--- NOTE | 2023-08-15 11:40 | PC.NURSE ---
Provider in room, pt evaluated, given ice pack. Pt declines pain meds to include tylenol and ibuprofen.
--- NOTE | 2023-08-15 11:44 | ED_ITS ---
HPI - Eye Problem <Maria Isabel Ramirez PA-C - Last Filed: 08/15/23 11:51> General Chief complaint: Eye Problems Stated complaint: head/eye injury Time Seen by Provider: 08/15/23 11:19 Source: patient Mode of arrival: Ambulatory History of Present Illness HPI Narrative: Patient is a 23-year-old female who presents with 2 complaints, eye pain and a bump on her head. She was seen on 08/10/2023 in the emergency department for eye pain and had a fluorescein exam which showed no foreign body or corneal abrasion. She was prescribed erythromycin ointment which she did not slate picker. The next day, she continued to have pain and was seen by an eye doctor in [place] who removed a metallic foreign body from her eye and prescribed ofloxacin drops. She did not slate picker these drops either because she did not have money for gas. Today, she reports ongoing pain that is scratchy and sometimes poking in her right eye and sometimes causes blurry vision. She has no purulent drainage from her eye, no vision loss, no double vision, no headache or fever. 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 She has not applied i ce or taken any medications. She is had no loss of consciousness, no nausea vomiting, no vision changes after this incident. Related Data Previous Rx's Medication Instructions Recorded ondansetron HCl 4 mg tablet 4 mg PO Q6-8H nausea #7 tabs 08/31/21 (Zofran) nitrofurantoin 100 mg PO BID #14 caps 11/19/21 monohydrate/macrocrystals 100 mg capsule (Macrobid) albuterol sulfate 90 mcg/actuation 2 puff inhalation Q4-6H PRN 04/13/22 aerosol inhaler shortness of breath or wheezing #8.5 grams albuterol sulfate 90 mcg/actuation 2 inh inhalation Q4-6H PRN 05/16/22 breath activated powder inhaler shortness of breath or wheezing #1 ea omeprazole 20 mg capsule,delayed 20 mg PO BID #60 caps 10/29/22 release sucralfate 1 gram tablet (Carafate) 1 g PO TID PRN heart burn #60 tabs 10/29/22 meclizine 12.5 mg tablet 12.5 mg PO TID PRN dizziness #20 03/18/23 tabs erythromycin 5 mg/gram (0.5 %) eye 0.5 inch EYE-RIGHT Q6HR 7 days 08/10/23 ointment #3.5 grams Allergies Allergy/AdvReac Type Severity Reaction Status Date / Time Penicillins [PENICILLINS] Allergy Unknown Anaphylaxis Verified 06/10/23 22:17 Patient History <Maria Isabel Ramirez PA-C - Last Filed: 08/15/23 11:51> Medical History Healthy adolescent Nephrolithiasis Surgical History No history of previous surgery Social History Smoking Status: Current every day smoker Smoking Status: Current every day smoker tobacco type: cigarettes and vaping alcohol intake frequency: holidays/special occasions only Substance Use Type: does not use Exam <Maria Isabel Ramirez PA-C - Last Filed: 08/15/23 11:51> Narrative Exam Narrative: GENERAL: 23 year old patient appears stated age. Well-developed patient, in no distress. NEURO: AOx3. HEAD: 2 cm tender hematoma over right forehead without any open skin or bleeding EYES: Pupils equal round and reactive. Extraocular motions intact. No scleral icterus. No injection or purulent drainage. ENT: Nose without bleeding or purulent drainage. Airway patent. RESPIRATORY: No distress SKIN: No rash or erythema of visible areas Initial Vital Signs Initial Vital Signs: Vital Signs Temperature 98.2 F 08/15/23 11:26 Pulse Rate 82 08/15/23 11:26 Respiratory Rate 18 08/15/23 11:26 Blood Pressure 144/95 H 08/15/23 11:26 Pulse Oximetry 99 08/15/23 11:26 Oxygen Delivery Method Room Air 08/15/23 11:26 <Elvis Edouard DO - Last Filed: 08/15/23 12:05> Initial Vital Signs Initial Vital Signs: Vital Signs Temperature 98.2 F 08/15/23 11:26 Pulse Rate 82 08/15/23 11:26 Respiratory Rate 18 08/15/23 11:26 Blood Pressure 144/95 H 08/15/23 11:26 Pulse Oximetry 99 08/15/23 11:26 Oxygen Delivery Method Room Air 08/15/23 11:26 Scores <Maria Isabel Ramirez PA-C - Last Filed: 08/15/23 11:51> Bivalve CT Head Rule Age <16 years old: No Patient on blood thinners: No Seizure after injury: No Exclusion: Patient NOT Excluded, Proceed to next steps GCS < 15 at 2 hr post trauma: No Suspected open or depressed skull fracture: No Any sign of basilar skull fracture (hemotympanum, raccoon eyes, Armendariz's sign, CSF tiffany-/rhinorrhea): No Two or more episodes of vomiting: No Age greater or equal to 65 years: No Retrograde amnesia to the event greater or equal to 30 min: No Dangerous Mechanism (pedestrian vs. mv, occupant ejected from mv, fall from >3 ft or > 5 stairs): No Recommendation: CT unnecessary <DO Traci Valentin Last Filed: 08/15/23 12:05> Bivalve CT Head Rule Exclusion: Patient NOT Excluded, Proceed to next steps Recommendation: CT unnecessary Course <SKYLAR oLvelace Last Filed: 08/15/23 11:51> Vital Signs Vital signs: Vital Signs - 8 hr 08/15/23 11:26 Temperature 98.2 F Pulse Rate 82 Respiratory Rate 18 Blood Pressure 144/95 H Pulse Oximetry 99 Oxygen Delivery Method Room Air <Elvis Edouard DO - Last Filed: 08/15/23 12:05> Vital Signs Vital signs: Vital Signs - 8 hr 08/15/23 11:26 Temperature 98.2 F Pulse Rate 82 Respiratory Rate 18 Blood Pressure 144/95 H Pulse Oximetry 99 Oxygen Delivery Method Room Air MDM - Eye Problem <SKYLAR Lovelace Last Filed: 08/15/23 11:51> MDM Narrative Medical decision making narrative: Multiple etiologies for patient's symptoms considered including, but not limited to: Corneal abrasion, eye infection, closed head injury, scalp hematoma. Patient's eye does not appear infected by visual exam. Suspect her discomfort is related to not taking the appropriate treatment after foreign body removal. I advised her to slate picker the ofloxacin drops today and start using them. She has no red flags for skull fracture or intracranial bleeding and does not re quire imaging today per Bivalve head CT Tool. Advised RICE. Offered patient Tylenol and ibuprofen but patient declined, stating she has some at home. Given ice pack in ER. Patient's symptoms improved over duration of stay with above-stated therapies. Findings and discharge diagnosis discussed with patient/family followed by verbalization of understanding Return precautions discussed with patient/family whom verbalize understanding of diagnosis and plan Discharge Plan Departure Patient Disposition: Home Clinical Impression: Corneal abrasion Hematoma of frontal scalp Qualifiers: Encounter type: initial encounter Qualified Code(s): S00.03XA - Contusion of scalp, initial encounter Instructions: DI for Corneal Abrasion, How To Perform RICE (Rest, Ice, Compress, Elevate) Activity Restrictions/Additional Instructions: * You shared with me today that an eye doctor removed metallic foreign body from your eye on Thursday. You likely have a corneal abrasion because of this foreign body. I strongly encourage you to slate picker your ofloxacin eyedrops today and start using them as prescribed. You do not need to also get the erythromycin eye ointment. Just the drops will be enough treatment. Please use these as prescribed. If you are not able to get these drops, I am concerned that this eye injury we will become chronic and you will develop more issues in the future. I suggest using ice, ibuprofen, Tylenol, rest for the bump on your head. I do not suspect any injury to your brain but if you develop any nausea or vomiting, lethargy or seizures please return to the emergency department. You may have a slight headache, which is to be expected. *What to do: *Please continue to take your regular medications as directed. [ ] New medication prescriptions sent to your pharmacy: [ ] [ ] New medication written as a paper prescription [x] No new medications given *Please follow up with your primary care provider in 2-3 days, call for an appointment. Let them know you were seen in the Emergency Department and that we ask that you be seen in follow up. We will electronically transmit a record of today's note if your PCP is in our system *If you do not have a primary care provider please contact the [facility] Resource line at [phone]. They will ask some questions about your medical history and help get you set up with a doctor in the community. *Return to Emergency Department if you should have any new, worsening or concerning symptoms, such as [fever greater than 101 F, shaking chills, worsening pain, persistent vomiting or other concerning symptoms]. Prescriptions: No Action nitrofurantoin monohyd/m-cryst [Macrobid] 100 mg capsule 100 mg PO BID Qty: 14 0RF Rx Instructions: must administer with a meal/food albuterol sulfate 90 mcg/actuation HFA aerosol inhaler 2 puff INHALATION Q4-6H PRN (Reason: shortness of breath or wheezing) Qty: 8.5 0RF albuterol sulfate 90 mcg/actuation aerosol powdr breath activated 2 inh inhalation Q4-6H PRN (Reason: shortness of breath or wheezing) Qty: 1 0RF meclizine 12.5 mg tablet 12.5 mg PO TID PRN (Reason: dizziness) Qty: 20 0RF erythromycin 5 mg/gram (0.5 %) ointment 0.5 inch EYE-RIGHT Q6HR 7 Days Qty: 3.5 0RF ondansetron HCl [Zofran] 4 mg tablet 4 mg PO Q6-8H Qty: 7 0RF omeprazole 20 mg capsule,delayed release(DR/EC) 20 mg PO BID Qty: 60 0RF sucralfate [Carafate] 1 gram tablet 1 g PO TID PRN (Reason: heart burn) Qty: 60 0RF Referrals: Claudia Bonner PA-C [Primary Care Provider] - Stand Alone Forms: Patient Portal/API <Elvis Edouard, DO - Last Filed: 08/15/23 12:05> Cosign ED Attending Cosignature Attestation: Dr Edouard Co-Sign Statement: I was available for consultation during this patient's emergency department visit. This chart is signed by myself for administrative purposes only. I did not have direct contact with this patient during this visit. They were seen independently by the APC.
== END 2023-08-15 11:51 | disposition home or self-care (01) ==
PROVIDERS: Emergency Provider Physician Assistant; PCP Physician Assistant
DX: S00.03XA Contusion of scalp, initial encounter (principal); S05.01XA Injury of conjunctiva and corneal abrasion without foreign body, right eye, initial encounter
CPT/HCPCS: 99281

== ENCOUNTER 2023-11-05 09:15 | Emergency (ER) | payer OTHER, MEDICAID, SELFPAY ==
[2023-11-05 09:23] VITALS: BP 176/102; PULSE 88; RESP 16; TEMP 36.4; O2SAT 99; BMI 45.1
--- NOTE | 2023-11-05 09:29 | DI.RAD.S_ITS ---
PROCEDURE: XR CHEST 1V INDICATIONS: chest pain TECHNIQUE: One view of the chest was acquired. COMPARISON: [facility], CR, XR CHEST 1V, 03/18/2023, 11:07. FINDINGS: Surgical changes and devices: None. Lungs and pleura: Lungs are clear. No pleural effusions or pneumothorax. Mediastinum: Mediastinal contours appear normal. Heart size is normal. Bones and chest wall: No suspicious bony lesions. Overlying soft tissues appear unremarkable. IMPRESSION: No acute cardiopulmonary abnormality is seen. Dictated by: Jaclyn Huddleston M.D. on 11/05/2023 at 10:04 Approved by: Jaclyn Huddleston M.D. on 11/05/2023 at 10:05
[2023-11-05 10:09] LABS: Add Manual Diff / Slide Review NO; Basophils Absolute Auto 100 /uL (0-100); Basophils Percent Auto 0.8 % (0-2); Eosinophils Absolute Auto 200 /uL (0-450); Hemoglobin 14.3 g/dL (12.0-16.0); Lymphocytes Absolute Auto 1800 /uL (1100-4500); Lymphocytes Percent Auto 24.6 % (25-40); Mean Corpuscular HGB Conc 34.2 % (30-36); Mean Corpuscular Hemoglobin 27.5 PG (26-34); Mean Corpuscular Volume 80.5 fL (80-100); Monocytes Absolute Auto 400 /uL (0-900); Monocytes Percent Auto 5.4 % (3-14); Neutrophils Absolute Auto 5000 /uL (1500-7000); Neutrophils Percent Auto 67.2 % (50-75); Platelet Count 306 X10^3/uL (150-400); Red Blood Cell Count 5.22 X10^6/uL (4.0-5.2); Red Cell Distribution Width 13.7 % (11.6-14.8); White Blood Cell Count 7.4 X10^3/uL (4.5-11.0)
[2023-11-05 10:16] LABS: INR 1.1 (0.9-1.3); Prothrombin Time 12.6 SECONDS (9.4-12.5)
[2023-11-05 10:18] LABS: PTT Partial Thromboplastin Tim 30 SECONDS (25.1-36.5)
[2023-11-05 10:21] LABS: Alanine Aminotransferase 30 IU/L (<35); Albumin 4.2 g/dL (3.5-5.0); Albumin Globulin Ratio 1.1 (1.0-2.8); Alkaline Phosphatase 94 U/L (38-126); Aspartate Aminotransferase 27 IU/L (14-36); BUN Creatinine Ratio 12.8 (6-22); Bilirubin Total 0.7 mg/dL (0.2-1.3); Blood Urea Nitrogen 10 mg/dL (7-17); Calcium 9.4 mg/dL (8.4-10.2); Carbon Dioxide 25 mmol/L (22-32); Chloride 106 mmol/L (98-107); Creatine Kinase 57 U/L (30-135); Estimated Glomerular Filt Rate > 60 mL/min (>60); Globulin 3.8 g/dL (1.7-4.1); Glucose 94 mg/dL (70-100); HEMOLYSIS < 15 (0-50); Lipase 153 U/L (23-300); Magnesium 1.8 mg/dL (1.6-2.3); Potassium 4.1 mmol/L (3.4-5.1); Sodium 138 mmol/L (137-145)
[2023-11-05 10:28] VITALS: BP 166/93; PULSE 78; RESP 19; O2SAT 98
[2023-11-05 10:30] VITALS: PULSE 78; RESP 15; O2SAT 97
[2023-11-05 10:32] LABS: Troponin I < 0.012 ng/mL (0.01-0.034)
--- NOTE | 2023-11-05 10:54 | ED_ITS ---
HPI - Chest Pain <Willem Oliveira PA-C - Last Filed: 11/05/23 11:18> General Chief Complaint: Chest Pain Stated Complaint: chest tightness,sob, skipping heartbeat Time Seen by Provider: 11/05/23 09:55 Source: patient Mode of arrival: Family Vehicle Limitations: no limitations History of Present Illness HPI narrative: This is a 23-year-old female presents to the emergency department due to intermittent chest pain and palpitations over the last couple of years worse over the last 3 days. She states that she noticed some chest pain affecting the right side of her ribs as well as left chest onset 3 days ago but then noticed some palpitations yesterday which caused her to come to the emergency department. She went to emergency department bottom month ago for similar symptoms and was referred for a Holter monitor through her primary care provider. Patient plans to get the Holter monitor next week. She denies any left arm pain, jaw pain, fevers, nausea, vomiting, abdominal pain, or any other concerning signs or symptoms. Related Data Previous Rx's Medication Instructions Recorded ondansetron HCl 4 mg tablet 4 mg PO Q6-8H nausea #7 tabs 08/31/21 (Zofran) nitrofurantoin 100 mg PO BID #14 caps 11/19/21 monohydrate/macrocrystals 100 mg capsule (Macrobid) albuterol sulfate 90 mcg/actuation 2 puff inhalation Q4-6H PRN 04/13/22 aerosol inhaler shortness of breath or wheezing #8.5 grams albuterol sulfate 90 mcg/actuation 2 inh inhalation Q4-6H PRN 05/16/22 breath activated powder inhaler shortness of breath or wheezing #1 ea omeprazole 20 mg capsule,delayed 20 mg PO BID #60 caps 10/29/22 release sucralfate 1 gram tablet (Carafate) 1 g PO TID PRN heart burn #60 tabs 10/29/22 meclizine 12.5 mg tablet 12.5 mg PO TID PRN dizziness #20 03/18/23 tabs Allergies Allergy/AdvReac Type Severity Reaction Status Date / Time Penicillins [PENICILLINS] Allergy Unknown Anaphylaxis Verified 06/10/23 22:17 Review of Systems <Willem Oliveira PA-C - Last Filed: 11/05/23 11:18> Review of Systems Narrative: GENERAL: Denies chills, fatigue, malaise, fever, sweats. HEENT: Denies sinus pain, ear pain, sore throat, difficulty swallowing, dizziness. RESPIRATORY: Denies dyspnea, cough, wheezing, hemoptysis, sputum. CARDIOVASCULAR: Reports chest pain, palpitations Denies orthopnea, edema, GASTROINTESTINAL: Denies nausea, vomiting, abdominal pain, diarrhea, constipation, melena. : Denies dysuria, frequency, incontinence, hematuria, urinary retention. MUSCULOSKELETAL: denies weakness, joint pain, or bony pain SKIN: Denies rash, skin lesions, or other NEUROLOGIC: Denies weakness, headache, numbness, change in speech, confusion, seizures, incoordination. PSYCHIATRIC: No concerning psychosocial issues. 12 point review of systems is negative except for those stated above Patient History <Willem Oliveira PA-C - Last Filed: 11/05/23 11:18> Medical History (Updated 11/05/23 @ 11:18 by Willem Oliveira PA-C) Nephrolithiasis Healthy adolescent Surgical History No history of previous surgery Social History Smoking Status: Current every day smoker Smoking Status: Current every day smoker tobacco type: cigarettes and vaping alcohol intake frequency: holidays/special occasions only Substance Use Type: does not use Exam <Willem Oliveira PA-C - Last Filed: 11/05/23 11:18> Narrative Exam Narrative: GENERAL: Well-developed patient, in mild distress. HEAD: Atraumatic. Normocephalic. EYES: Pupils equal round and reactive. Extraocular motions intact. No scleral icterus. No injection or drainage. ENT: Nose without bleeding, purulent drainage. Throat without erythema, tonsillar hypertrophy or exudate. Airway patent. NECK: Trachea midline. Non tender CARDIOVASCULAR: Regular rate and rhythm without murmurs, gallops, or rubs. RESPIRATORY: Clear to auscultation. Breath sounds equal bilaterally. No wheezes, rales, or rhonchi. GASTROINTESTINAL: Abdomen soft, non-tender, nondistended. EXTREMITIES: No edema or joint tenderness. BACK: Nontender without deformity or crepitance. No flank tenderness. NEURO: AOx3. SKIN: No rash or erythema of visible areas Initial Vital Signs Initial Vital Signs: Vital Signs Temperature 97.6 F 11/05/23 09:23 Pulse Rate 88 11/05/23 09:23 Respiratory Rate 16 11/05/23 09:23 Blood Pressure 176/102 H 11/05/23 09:23 Pulse Oximetry 99 11/05/23 09:23 Oxygen Delivery Method Room Air 11/05/23 09:23 <Brenda Jiménez DO - Last Filed: 11/08/23 07:32> Initial Vital Signs Initial Vital Signs: Vital Signs Temperature 97.6 F 11/05/23 09:23 Pulse Rate 88 11/05/23 09:23 Respiratory Rate 16 11/05/23 09:23 Blood Pressure 176/102 H 11/05/23 09:23 Pulse Oximetry 99 11/05/23 09:23 Oxygen Delivery Method Room Air 11/05/23 09:23 Course <Willem Oliveira PA-C - Last Filed: 11/05/23 11:18> Orders Ordered: Discontinued Medications Aspirin (Aspirin 81 Mg Chew Tab) 324 mg PO NOW ONE Stop: 11/05/23 09:30 Last Admin: 11/05/23 11:20 Dose: Not Given Documented By: KF Vital Signs Vital signs: Vital Signs - 8 hr 11/05/23 09:23 11/05/23 10:28 Temperature 97.6 F Pulse Rate 88 78 Respiratory Rate 16 19 Blood Pressure 176/102 H 166/93 H Pulse Oximetry 99 98 Oxygen Delivery Method Room Air <Brenda Jiménez DO - Last Filed: 11/08/23 07:32> Orders Ordered: Discontinued Medications Aspirin (Aspirin 81 Mg Chew Tab) 324 mg PO NOW ONE Stop: 11/05/23 09:30 Last Admin: 11/05/23 11:20 Dose: Not Given Documented By: KF Vital Signs Vital signs: Vital Signs - 8 hr 11/05/23 09:23 11/05/23 10:28 Temperature 97.6 F Pulse Rate 88 78 Respiratory Rate 16 19 Blood Pressure 176/102 H 166/93 H Pulse Oximetry 99 98 Oxygen Delivery Method Room Air MDM - Chest Pain <Willem Oliveira PA-C - Last Filed: 11/05/23 11:18> Lab Data 11/05/23 10:00 11/05/23 10:00 Labs: Lab Results 11/05/23 Range/Units 10:00 WBC 7.4 (4.5-11.0) X10^3/uL RBC 5.22 H (4.0-5.2) X10^6/uL Hgb 14.3 (12.0-16.0) g/dL Hct 42.0 (36-46) % MCV 80.5 (80-100) fL MCH 27.5 (26-34) PG MCHC 34.2 (30-36) % RDW 13.7 (11.6-14.8) % Plt Count 306 (150-400) X10^3/uL Neut % (Auto) 67.2 (50-75) % Lymph % (Auto) 24.6 L (25-40) % [place] % (Auto) 5.4 (3-14) % Eos % (Auto) 2.0 (2-4) % Baso % (Auto) 0.8 (0-2) % Neut # (Auto) 5000 (0647-0826) /uL Lymph # (Auto) 1800 (8976-0356) /uL [place] # (Auto) 400 (0-900) /uL Eos # (Auto) 200 (0-450) /uL Baso # (Auto) 100 (0-100) /uL PT 12.6 H (9.4-12.5) SECONDS INR 1.1 (0.9-1.3) APTT 30 (25.1-36.5) SECONDS Sodium 138 (137-145) mmol/L Potassium 4.1 (3.4-5.1) mmol/L Chloride 106 (98-107) mmol/L Carbon Dioxide 25 (22-32) mmol/L BUN 10 (7-17) mg/dL Creatinine 0.78 (0.52-1.04) mg/dL Estimated GFR > 60 (>60) mL/min BUN/Creatinine Ratio 12.8 (6-22) Glucose 94 (70-100) mg/dL Calcium 9.4 (8.4-10.2) mg/dL Magnesium 1.8 (1.6-2.3) mg/dL Total Bilirubin 0.7 (0.2-1.3) mg/dL AST 27 (14-36) IU/L ALT 30 (<35) IU/L Alkaline Phosphatase 94 (38-126) U/L Total Creatine Kinase 57 (30-135) U/L Troponin I < 0.012 (0.01-0.034) ng/mL Total Protein 8.0 (6.3-8.2) g/dL Albumin 4.2 (3.5-5.0) g/dL Globulin 3.8 (1.7-4.1) g/dL Albumin/Globulin Ratio 1.1 (1.0-2.8) Lipase 153 (23-300) U/L Imaging Data Chest x-ray: Radiologist's Impression: [address] [address] XRay Report Signed Patient: Janneth Tang MR#: [id number] : 2000 Acct:[id number] Age/Sex: 23 / F Date of Service: 11/05/23 Loc: ED Accession Number: [id number] Procedure: XR chest 1V Ordering Provider: Brenda Jiménez D.O. PROCEDURE: XR CHEST 1V INDICATIONS: chest pain TECHNIQUE: One view of the chest was acquired. COMPARISON: [facility], , XR CHEST 1V, 03/18/2023, 11:07. FINDINGS: Surgical changes and devices: None. Lungs and pleura: Lungs are clear. No pleural effusions or pneumothorax. Mediastinum: Mediastinal contours appear normal. Heart size is normal. Bones and chest wall: No suspicious bony lesions. Overlying soft tissues appear unremarkable. IMPRESSION: No acute cardiopulmonary abnormality is seen. Dictated by: Jaclyn Huddleston M.D. on 11/05/2023 at 10:04 Approved by: Jaclyn Huddleston M.D. on 11/05/2023 at 10:05 ECG Data Interpretation: EKG is normal sinus rhythm rate 82 and free of any signs of ischemia or ectopy. No ST segmental elevation or depression. No T wave inversions MDM Narrative Medical decision making narrative: MDM * differential diagnosis includes but not limited to STEMI, NSTEMI, pneumonia, pleuritic chest pain * Prior records reviewed: Patient was last seen here due to a corneal abrasion. History of nephrolithiasis. History of hypertension. * My lab interpretation: CBC, CMP, coags, lipase, magnesium, troponin all within normal limits. * My imgaing interpretation: Chest x-ray unremarkable * Clinical Decision Rules/Scores evaluated: Heart score of 1 * Independent discussions with: None ED Course: This is a 23-year-old female presents to the emergency department due to an intermittent history chest pain as well as reported heart palpitations for the last couple of years worse over the last 3 days. She was already seen at emergency department a referral for Holter monitor which she plans on performing next week. Her heart score was 1 today. All lab work, imaging, and EKG unremarkable. Recommend she follow up for the Holter monitor and speak with the PCP regarding the results. Shared Decision Making: Discussed plan with the patient who is comfortable with the plan. Social Considerations: None Disposition: Discharged to home <Brenda Jiménez DO - Last Filed: 11/08/23 07:32> Lab Data Labs: Lab Results 11/05/23 Range/Units 10:00 WBC 7.4 (4.5-11.0) X10^3/uL RBC 5.22 H (4.0-5.2) X10^6/uL Hgb 14.3 (12.0-16.0) g/dL Hct 42.0 (36-46) % MCV 80.5 (80-100) fL MCH 27.5 (26-34) PG MCHC 34.2 (30-36) % RDW 13.7 (11.6-14.8) % Plt Count 306 (150-400) X10^3/uL Neut % (Auto) 67.2 (50-75) % Lymph % (Auto) 24.6 L (25-40) % [place] % (Auto) 5.4 (3-14) % Eos % (Auto) 2.0 (2-4) % Baso % (Auto) 0.8 (0-2) % Neut # (Auto) 5000 (8117-4515) /uL Lymph # (Auto) 1800 (9748-1123) /uL [place] # (Auto) 400 (0-900) /uL Eos # (Auto) 200 (0-450) /uL Baso # (Auto) 100 (0-100) /uL PT 12.6 H (9.4-12.5) SECONDS INR 1.1 (0.9-1.3) APTT 30 (25.1-36.5) SECONDS Sodium 138 (137-145) mmol/L Potassium 4.1 (3.4-5.1) mmol/L Chloride 106 (98-107) mmol/L Carbon Dioxide 25 (22-32) mmol/L BUN 10 (7-17) mg/dL Creatinine 0.78 (0.52-1.04) mg/dL Estimated GFR > 60 (>60) mL/min BUN/Creatinine Ratio 12.8 (6-22) Glucose 94 (70-100) mg/dL Calcium 9.4 (8.4-10.2) mg/dL Magnesium 1.8 (1.6-2.3) mg/dL Total Bilirubin 0.7 (0.2-1.3) mg/dL AST 27 (14-36) IU/L ALT 30 (<35) IU/L Alkaline Phosphatase 94 (38-126) U/L Total Creatine Kinase 57 (30-135) U/L Troponin I < 0.012 (0.01-0.034) ng/mL Total Protein 8.0 (6.3-8.2) g/dL Albumin 4.2 (3.5-5.0) g/dL Globulin 3.8 (1.7-4.1) g/dL Albumin/Globulin Ratio 1.1 (1.0-2.8) Lipase 153 (23-300) U/L ECG Data Interpretation: EKG is normal sinus rhythm rate 82 and free of any signs of ischemia or ectopy. No ST segmental elevation or depression. No T wave inversions Mank: Sinus rhythm with sinus arrhythmia rate of 82 NC 144 QRS 84 QTC [address]. No acute ST elevation depression noted patient does have prior from 03/18/2023 which appears similar to today's. Discharge Plan Departure Patient Disposition: Home Clinical Impression: Atypical chest pain Activity Restrictions/Additional Instructions: Thank you for coming to the [facility] Emergency Department today. We have done a workup today which showed no evidence of infection, electrolyte abnormalities, ?heart attack?, or any lung abnormalities. I do recommend he follow up with your primary care provider for the Holter monitor who maybe up to refer you to cardiology if you are symptoms continue. I hope you feel better soon. Please follow up with your primary care provider within a week if your symptoms continue. If you do not have a primary care provider please contact the [facility] line at [phone]. They will ask some questions about your medical history and help you get set up with a provider in the community. Prescriptions: No Action nitrofurantoin monohyd/m-cryst [Macrobid] 100 mg capsule 100 mg PO BID Qty: 14 0RF Rx Instructions: must administer with a meal/food albuterol sulfate 90 mcg/actuation HFA aerosol inhaler 2 puff INHALATION Q4-6H PRN (Reason: shortness of breath or wheezing) Qty: 8.5 0RF albuterol sulfate 90 mcg/actuation aerosol powdr breath activated 2 inh inhalation Q4-6H PRN (Reason: shortness of breath or wheezing) Qty: 1 0RF meclizine 12.5 mg tablet 12.5 mg PO TID PRN (Reason: dizziness) Qty: 20 0RF ondansetron HCl [Zofran] 4 mg tablet 4 mg PO Q6-8H Qty: 7 0RF omeprazole 20 mg capsule,delayed release(DR/EC) 20 mg PO BID Qty: 60 0RF sucralfate [Carafate] 1 gram tablet 1 g PO TID PRN (Reason: heart burn) Qty: 60 0RF Referrals: Claudia Bonner PA-C [Primary Care Provider] - Stand Alone Forms: Patient Portal/API, Work Release Note ED Sign-out <Brenda Jiménez DO - Last Filed: 11/08/23 07:32> Cosign ED Attending Bassam Attestation: I was immediately available in the department for consultation. EKG was reviewed.
[2023-11-05 11:00] VITALS: PULSE 80; RESP 15; O2SAT 97
[2023-11-05 11:30] VITALS: PULSE 83; RESP 15; O2SAT 97
== END 2023-11-05 11:39 | disposition home or self-care (01) ==
PROVIDERS: Emergency Medicine; Emergency Provider Physician Assistant Medical; PCP Physician Assistant
DX: R07.89 Other chest pain (principal)
CPT/HCPCS: 36415; 71045; 80053; 82550; 83690; 83735; 84484; 85025; 85610; 85730; 93005; 93010; 99283; 99284

== ENCOUNTER 2024-04-06 13:06 | Emergency (ER) | payer OTHER, MEDICAID, SELFPAY ==
[2024-04-06 13:16] VITALS: BP 163/101; PULSE 81; RESP 18; TEMP 37; O2SAT 99; BMI 45.1
[2024-04-06 15:23] LABS: Appearance Urine UA CLEAR; Bilirubin Urine UA NEGATIVE (NEGATIVE); Color Urine UA YELLOW; Glucose Urine UA NEGATIVE (Negative); Ketones Urine UA NEGATIVE (NEGATIVE); Leukocyte Esterase Urine UA NEGATIVE (NEGATIVE); Nitrite Urine UA NEGATIVE (Negative); Occult Blood Urine UA 3+ (Negative); Protein Urine UA NEGATIVE (Negative); Specific Gravity Urine UA <=1.005 (1.000-1.035); Urobilinogen Urine UA 0.2 E.U./dL (0.2)
[2024-04-06 15:28] LABS: Adenovirus Not Detected (Not Detect); B. parapertussis Not Detected (Not Detecte); Bordetella pertussis Not Detected (Not Detect); Chlamydophila pneumoniae Not Detected (Not Detect); Coronavirus 229E Not Detected (Not Detect); Coronavirus HKU1 Not Detected (Not Detect); Coronavirus NL 63 Not Detected (Not Detect); Coronavirus OC43 Not Detected (Not Detect); Human Metapneumovirus Not Detected (Not Detect); Human Rhinovirus/Enterovirus Detected (Not Detect); Influenza A Not Detected (Not Detect); Influenza B Not Detected (Not Detect); Mycoplasma pneumoniae Not Detected (Not Detect); Parainfluenza Virus 1 Not Detected (Not Detect); Parainfluenza Virus 2 Not Detected (Not Detect); Parainfluenza Virus 3 Not Detected (Not Detect); Parainfluenza Virus 4 Not Detected (Not Detect); Respiratory Syncytial Virus Not Detected (Not Detect); SARS- CoV-2 Not Detected (Not Detecte)
[2024-04-06 15:28] LABS: Add Manual Diff / Slide Review NO; Basophils Absolute Auto 100 /uL (0-100); Basophils Percent Auto 0.9 % (0-2); Eosinophils Absolute Auto 100 /uL (0-450); Eosinophils Percent Auto 1.1 % (2-4); Hematocrit 41.7 % (36-46); Hemoglobin 14.2 g/dL (12.0-16.0); Lymphocytes Absolute Auto 1700 /uL (1100-4500); Mean Corpuscular HGB Conc 34.1 % (30-36); Mean Corpuscular Hemoglobin 27.8 PG (26-34); Mean Corpuscular Volume 81.5 fL (80-100); Monocytes Absolute Auto 400 /uL (0-900); Neutrophils Absolute Auto 5900 /uL (1500-7000); Platelet Count 337 X10^3/uL (150-400); Red Blood Cell Count 5.12 X10^6/uL (4.0-5.2); Red Cell Distribution Width 13.8 % (11.6-14.8); White Blood Cell Count 8.1 X10^3/uL (4.5-11.0)
[2024-04-06 15:46] LABS: Alanine Aminotransferase 22 IU/L (<35); Albumin 4.5 g/dL (3.5-5.0); Albumin Globulin Ratio 1.3 (1.0-2.8); Alkaline Phosphatase 87 U/L (38-126); Aspartate Aminotransferase 25 IU/L (14-36); BUN Creatinine Ratio 14.1 (6-22); Bilirubin Total 0.4 mg/dL (0.2-1.3); Blood Urea Nitrogen 10 mg/dL (7-17); Calcium 9.1 mg/dL (8.4-10.2); Carbon Dioxide 23 mmol/L (22-32); Chloride 109 mmol/L (98-107); Estimated Glomerular Filt Rate > 60 mL/min (>60); Globulin 3.6 g/dL (1.7-4.1); Glucose 90 mg/dL (70-100); HEMOLYSIS 32 (0-50); Potassium 4.3 mmol/L (3.4-5.1); Sodium 140 mmol/L (137-145); Total Protein 8.1 g/dL (6.3-8.2)
[2024-04-06 15:55] LABS: Bacteria Urine None Seen; Culture Indicated Urine Cult Not Indicated; RBC Urine None Seen (0-5/HPF); Squamous Epithelial Cell Urine None Seen (0-5/HPF); Urine Volume 10mL (spun); WBC Urine None Seen (0-5/HPF)
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
[2024-04-06] MEDS: MECLIZINE HCL 12.5 MG TABLET 25 MG PO (16:31)
[2024-04-06 17:22] VITALS: BP 135/91; PULSE 96; RESP 16; O2SAT 98
== END 2024-04-06 17:29 | disposition home or self-care (01) ==
PROVIDERS: Emergency Medicine; Emergency Provider Physician Assistant Medical; PCP Physician Assistant
DX: H81.12 Benign paroxysmal vertigo, left ear (principal); B97.89 Other viral agents as the cause of diseases classified elsewhere; R03.0 Elevated blood-pressure reading, without diagnosis of hypertension; Z20.822 Contact with and (suspected) exposure to COVID-19
CPT/HCPCS: 36415; 80053; 81001; 81003; 81025; 85025; 87633; 93005; 93010; 99283; 99284

== ENCOUNTER 2024-09-02 10:58 | Emergency (ER) | payer OTHER, MEDICAID, SELFPAY ==
[2024-09-02] VITALS (10 sets, daily range): BP systolic 143–198; BP diastolic 76–118; PULSE 82–112; RESP 12–24; TEMP 36.6; O2SAT 98–100; BMI 45.1
--- NOTE | 2024-09-02 11:08 | ED.CHESTPAIN ---
HPI - Chest Pain General Chief Complaint: Arrhythmia/Palpitations Stated Complaint: mild Chest pain Time Seen by Provider: 09/02/24 11:07 Source: patient and RN notes reviewed Mode of arrival: Ambulatory Limitations: no limitations Related Data Previous Rx's Medication Instructions Recorded ondansetron HCl 4 mg tablet 4 mg PO Q6-8H nausea #7 tabs 08/31/21 (Zofran) nitrofurantoin 100 mg PO BID #14 caps 11/19/21 monohydrate/macrocrystals 100 mg capsule (Macrobid) albuterol sulfate 90 mcg/actuation 2 puff inhalation Q4-6H PRN 04/13/22 aerosol inhaler shortness of breath or wheezing #8.5 grams albuterol sulfate 90 mcg/actuation 2 inh inhalation Q4-6H PRN 05/16/22 breath activated powder inhaler shortness of breath or wheezing #1 ea omeprazole 20 mg capsule,delayed 20 mg PO BID #60 caps 10/29/22 release sucralfate 1 gram tablet (Carafate) 1 g PO TID PRN heart burn #60 tabs 10/29/22 meclizine 12.5 mg tablet 12.5 mg PO TID PRN dizziness #20 03/18/23 tabs Allergies Allergy/AdvReac Type Severity Reaction Status Date / Time Penicillins [PENICILLINS] Allergy Unknown Anaphylaxis Verified 09/02/24 11:09 Review of Systems Review of Systems ROS Unobtainable: All systems reviewed & are unremarkable except as noted in HPI and below Patient History Medical History Nephrolithiasis Healthy adolescent Surgical History No history of previous surgery Social History Smoking Status: Current every day smoker Smoking Status: Current every day smoker tobacco type: cigarettes and vaping alcohol intake frequency: holidays/special occasions only Substance Use Type: does not use Exam Initial Vital Signs Initial Vital Signs: Vital Signs Temperature 98 F 09/02/24 11:06 Pulse Rate 112 H 09/02/24 11:06 Respiratory Rate 18 09/02/24 11:06 Blood Pressure 176/118 H 09/02/24 11:06 Pulse Oximetry 100 09/02/24 11:06 Oxygen Delivery Method Room Air 09/02/24 11:06 Course Orders Ordered: ED Orders 09/02/24 11:09 EKG-12 Lead Stat Vital Signs Vital signs: Vital Signs - 8 hr 09/02/24 11:06 09/02/24 11:08 09/02/24 11:30 Temperature 98 F Pulse Rate 112 H 97 H 104 H Respiratory Rate 18 23 12 Blood Pressure 176/118 H Pulse Oximetry 100 99 98 Oxygen Delivery Method Room Air 09/02/24 11:30 09/02/24 11:38 09/02/24 11:38 Temperature Pulse Rate 90 Respiratory Rate 12 Blood Pressure 198/93 H 156/93 H Pulse Oximetry 99 Oxygen Delivery Method 09/02/24 12:00 09/02/24 12:00 Temperature Pulse Rate 91 H Respiratory Rate 14 Blood Pressure 144/79 H Pulse Oximetry 98 Oxygen Delivery Method MDM - Chest Pain ECG Data Attestation: I personally reviewed and interpreted this ECG as follows: Prior ECG tracings: available for review Interpretation: [place] 140 QRS 80 QTC 430, no acute ST elevation depression. No acute changes from prior 04/06/2024. Discharge Plan Departure Prescriptions: No Action nitrofurantoin monohyd/m-cryst [Macrobid] 100 mg capsule 100 mg PO BID Qty: 14 0RF Rx Instructions: must administer with a meal/food albuterol sulfate 90 mcg/actuation HFA aerosol inhaler 2 puff INHALATION Q4-6H PRN (Reason: shortness of breath or wheezing) Qty: 8.5 0RF albuterol sulfate 90 mcg/actuation aerosol powdr breath activated 2 inh inhalation Q4-6H PRN (Reason: shortness of breath or wheezing) Qty: 1 0RF meclizine 12.5 mg tablet 12.5 mg PO TID PRN (Reason: dizziness) Qty: 20 0RF ondansetron HCl [Zofran] 4 mg tablet 4 mg PO Q6-8H Qty: 7 0RF omeprazole 20 mg capsule,delayed release(DR/EC) 20 mg PO BID Qty: 60 0RF sucralfate [Carafate] 1 gram tablet 1 g PO TID PRN (Reason: heart burn) Qty: 60 0RF Referrals: Claudia Bonner PA-C [Primary Care Provider] -
--- NOTE | 2024-09-02 11:11 | EKG_ITS ---
[facility] [address] [address] Test Date: 2024-09-02 Pat Name: Janneth Tang Department: [facility] Room: Gender: Female Management Trainer: MARIN : 2000 Requested By: Order Number: [id number] Reading MD: Bay Jack MD Measurements Intervals [place] Rate: 92 P: 26 [place]: 140 QRS: 19 QRSD: 80 T: 21 QT: 348 QTc: 430 Interpretive Statements Normal sinus rhythm Electronically Signed On 09-02-2024 16:28:26 PDT by Bay Jack MD
--- NOTE | 2024-09-02 12:17 | PC.NURSE ---
left sided rib pain; worse on palpation. pt states she sees cardiology for sinus tachycardia.
--- NOTE | 2024-09-02 12:44 | DI.RAD.S_ITS ---
PROCEDURE: XR CHEST 2V INDICATIONS: Palpitations TECHNIQUE: 2 views of the chest were acquired. COMPARISON: [facility], CR, XR CHEST 1V, 11/05/2023, 9:24. [facility], CR, XR CHEST 1V, 03/18/2023, 11:07. FINDINGS: Surgical changes and devices: None. Lungs and pleura: Lungs are clear. No pleural effusions or pneumothorax. Mediastinum: Mediastinal contours are normal. Heart size is normal. Bones and chest wall: No suspicious bony abnormalities. Soft tissues appear unremarkable. IMPRESSION: No acute cardiopulmonary abnormality is seen. Dictated by: Reynaldo Zaargoza M.D. on 09/02/2024 at 13:30 Approved by: Reynaldo Zaragoza M.D. on 09/02/2024 at 13:31
[2024-09-02 13:05] LABS: Add Manual Diff / Slide Review NO; Basophils Absolute Auto 100 /uL (0-100); Basophils Percent Auto 0.9 % (0-2); Eosinophils Absolute Auto 200 /uL (0-450); Eosinophils Percent Auto 1.9 % (2-4); Hematocrit 41.5 % (36-46); Hemoglobin 14.1 g/dL (12.0-16.0); Lymphocytes Absolute Auto 2000 /uL (1100-4500); Lymphocytes Percent Auto 22.8 % (25-40); Mean Corpuscular Hemoglobin 27.3 PG (26-34); Mean Corpuscular Volume 80.5 fL (80-100); Monocytes Absolute Auto 500 /uL (0-900); Monocytes Percent Auto 5.6 % (3-14); Neutrophils Absolute Auto 5900 /uL (1500-7000); Neutrophils Percent Auto 68.8 % (50-75); Platelet Count 391 X10^3/uL (150-400); Red Blood Cell Count 5.15 X10^6/uL (4.0-5.2); Red Cell Distribution Width 13.6 % (11.6-14.8); White Blood Cell Count 8.6 X10^3/uL (4.5-11.0)
[2024-09-02 13:17] LABS: Alanine Aminotransferase 25 IU/L (<35); Albumin 4.3 g/dL (3.5-5.0); Albumin Globulin Ratio 1.3 (1.0-2.8); Alkaline Phosphatase 90 U/L (38-126); Aspartate Aminotransferase 25 IU/L (14-36); BUN Creatinine Ratio 11.4 (6-22); Bilirubin Total 0.5 mg/dL (0.2-1.3); Blood Urea Nitrogen 9 mg/dL (7-17); Calcium 9.2 mg/dL (8.4-10.2); Carbon Dioxide 23 mmol/L (22-32); Chloride 108 mmol/L (98-107); Estimated Glomerular Filt Rate > 60 mL/min (>60); Globulin 3.4 g/dL (1.7-4.1); Glucose 96 mg/dL (70-100); HEMOLYSIS < 15 (0-50); Magnesium 1.8 mg/dL (1.6-2.3); Potassium 3.8 mmol/L (3.4-5.1); Sodium 138 mmol/L (137-145); Total Protein 7.7 g/dL (6.3-8.2)
[2024-09-02 13:28] LABS: Troponin I < 0.012 ng/mL (0.01-0.034)
--- NOTE | 2024-09-02 13:37 | ED_ITS ---
HPI - Arrhythmia/Palpitations <Nando Oswald PA-C - Last Filed: 09/02/24 13:56> General Chief Complaint: Arrhythmia/Palpitations Stated Complaint: mild Chest pain Time Seen by Provider: 09/02/24 11:07 Source: patient and RN notes reviewed Mode of arrival: Ambulatory History of Present Illness HPI narrative: This patient is a 24-year-old female that underwent a stress test and echocardiogram 3 days ago. She states that the echo was within normal limits. The stress test results are still pending. The patient has an appointment next month to discuss these results with her sponge hooker next month. The patient has been experiencing palpitations since the stress test was performed. The patient denies radiating chest pain, night sweats, fever, chills, [place], PND or shortness of breath. Patient has tried diltiazem extended release on 1 occasion. Unfortunately, the patient take the contents of the capsule, put him in food and did not tolerate the side effects from the medication. The patient has not attempted diltiazem tablets. She also denies recent illness, trauma or back pain. Related Data Previous Rx's Medication Instructions Recorded ondansetron HCl 4 mg tablet 4 mg PO Q6-8H nausea #7 tabs 08/31/21 (Zofran) nitrofurantoin 100 mg PO BID #14 caps 11/19/21 monohydrate/macrocrystals 100 mg capsule (Macrobid) albuterol sulfate 90 mcg/actuation 2 puff inhalation Q4-6H PRN 04/13/22 aerosol inhaler shortness of breath or wheezing #8.5 grams albuterol sulfate 90 mcg/actuation 2 inh inhalation Q4-6H PRN 05/16/22 breath activated powder inhaler shortness of breath or wheezing #1 ea omeprazole 20 mg capsule,delayed 20 mg PO BID #60 caps 10/29/22 release sucralfate 1 gram tablet (Carafate) 1 g PO TID PRN heart burn #60 tabs 10/29/22 meclizine 12.5 mg tablet 12.5 mg PO TID PRN dizziness #20 03/18/23 tabs diltiazem HCl 30 mg tablet 30 mg PO TID #20 tabs 09/02/24 Allergies Allergy/AdvReac Type Severity Reaction Status Date / Time Penicillins [PENICILLINS] Allergy Unknown Anaphylaxis Verified 09/02/24 11:09 Review of Systems <Nando Oswald PA-C - Last Filed: 09/02/24 13:56> Review of Systems Narrative: General: See HPI CV: See HPI All other review of systems have been reviewed and are ultimately negative unless otherwise stated in the HPI. Patient History <Nando Oswald PA-C - Last Filed: 09/02/24 13:56> Medical History (Updated 09/02/24 @ 13:35 by Nando Oswald PA-C) Nephrolithiasis Healthy adolescent Surgical History No history of previous surgery Social History Smoking Status: Current every day smoker Smoking Status: Current every day smoker tobacco type: cigarettes and vaping alcohol intake frequency: holidays/special occasions only Substance Use Type: does not use Exam <Nando Oswald PA-C - Last Filed: 09/02/24 13:56> Initial Vital Signs Initial Vital Signs: Vital Signs Temperature 98 F 09/02/24 11:06 Pulse Rate 112 H 09/02/24 11:06 Respiratory Rate 18 09/02/24 11:06 Blood Pressure 176/118 H 09/02/24 11:06 Pulse Oximetry 100 09/02/24 11:06 Oxygen Delivery Method Room Air 09/02/24 11:06 Const General: cooperative, healthy appearing, comfortable, well developed and well groomed [facility] Head: normal to inspection, normocephalic and atraumatic Ears: hearing grossly normal bilaterally Nose: external nose normal Face and sinus: normal facial exam Throat: posterior oropharynx normal and tonsils normal Eyes General: Yes appearance normal, both eyes and all related structures Pupils: PERRL and normal by confrontation Neck Neck: normal visual inspection, full ROM, no meningeal signs and trachea midline Resp Effort & Inspection: normal respiratory effort and able to speak in complete sentences Auscultation: clear to auscultation bilaterally Cardio Rate: regular rate Rhythm: regular rhythm Heart Sounds: S1 normal and S2 normal GI Palpation: soft and no hepatosplenomegaly Back/Spine/Pelvis Back: normal to inspection Skin General: no rashes or lesions noted, elasticity normal and turgor normal Neuro General: patient alert, patient awake and patient oriented x3 Extrem General: normal to inspection, full ROM and capillary refill normal Psych Appearance: grossly normal and well kempt <Brenda Jiménez DO - Last Filed: 09/07/24 04:46> Initial Vital Signs Initial Vital Signs: Vital Signs Temperature 98 F 09/02/24 11:06 Pulse Rate 112 H 09/02/24 11:06 Respiratory Rate 18 09/02/24 11:06 Blood Pressure 176/118 H 09/02/24 11:06 Pulse Oximetry 100 09/02/24 11:06 Oxygen Delivery Method Room Air 09/02/24 11:06 Procedures <Nando Oswald PA-C - Last Filed: 09/02/24 13:56> [facility] [place], [place] Procedure Name of Procedure: 12-lead EKG Additional Comments: Performed on 09/02/2024 at 11:11 a.m. reveals normal sinus rhythm with a ventricular rate of 92 beats per minute. No ST, T-wave elevation, depression or ectopy noted per my interpretation. Course <Nando Oswald PA-C - Last Filed: 09/02/24 13:56> Course Course Narrative: Patient was seen and examined. She had labs performed which included a CBC, CMP, magnesium, troponin which are all within normal limits. The TSH is pending at the time of dictation. This would not change the treatment plan at this time. The patient has been on diltiazem in the past but this was the extended release new when she accidentally put this in food and then took the medication. She only tolerated 1 dose. We will initiate diltiazem 30 mg tablets up to 3 times a day. She has been advised to discuss this with her sponge hooker as well. Patient understands the treatment plan. There are no additional questions at the time of discharge and she will follow up as requested. Orders Ordered: ED Orders 09/02/24 11:09 EKG-12 Lead Stat 09/02/24 12:44 Chest [XR chest 2V] Stat 09/02/24 12:57 CBC Auto Diff [Complete Blood Count AUTO DIFF] Stat CMP [Comprehensive Metabolic Panel] Stat Magnesium Stat TSH [Thyroid Stimulating Hormone] Stat Troponin I Stat Vital Signs Vital signs: Vital Signs - 8 hr 09/02/24 11:06 09/02/24 11:08 09/02/24 11:30 Temperature 98 F Pulse Rate 112 H 97 H 104 H Respiratory Rate 18 23 12 Blood Pressure 176/118 H Pulse Oximetry 100 99 98 Oxygen Delivery Method Room Air 09/02/24 11:30 09/02/24 11:38 09/02/24 11:38 Temperature Pulse Rate 90 Respiratory Rate 12 Blood Pressure 198/93 H 156/93 H Pulse Oximetry 99 Oxygen Delivery Method 09/02/24 12:00 09/02/24 12:00 09/02/24 12:30 Temperature Pulse Rate 91 H 83 Respiratory Rate 14 17 Blood Pressure 144/79 H Pulse Oximetry 98 98 Oxygen Delivery Method 09/02/24 12:30 Temperature Pulse Rate Respiratory Rate Blood Pressure 143/76 H Pulse Oximetry Oxygen Delivery Method <Brenda Jiménez DO - Last Filed: 09/07/24 04:46> Orders Ordered: ED Orders 09/02/24 11:09 EKG-12 Lead Stat 09/02/24 12:44 Chest [XR chest 2V] Stat 09/02/24 12:57 CBC Auto Diff [Complete Blood Count AUTO DIFF] Stat CMP [Comprehensive Metabolic Panel] Stat Magnesium Stat TSH [Thyroid Stimulating Hormone] Stat Troponin I Stat Vital Signs Vital signs: Vital Signs - 8 hr 09/02/24 11:06 09/02/24 11:08 09/02/24 11:30 Temperature 98 F Pulse Rate 112 H 97 H 104 H Respiratory Rate 18 23 12 Blood Pressure 176/118 H Pulse Oximetry 100 99 98 Oxygen Delivery Method Room Air 09/02/24 11:30 09/02/24 11:38 09/02/24 11:38 Temperature Pulse Rate 90 Respiratory Rate 12 Blood Pressure 198/93 H 156/93 H Pulse Oximetry 99 Oxygen Delivery Method 09/02/24 12:00 09/02/24 12:00 09/02/24 12:30 Temperature Pulse Rate 91 H 83 Respiratory Rate 14 17 Blood Pressure 144/79 H Pulse Oximetry 98 98 Oxygen Delivery Method 09/02/24 12:30 Temperature Pulse Rate Respiratory Rate Blood Pressure 143/76 H Pulse Oximetry Oxygen Delivery Method MDM - Arrhythmia/Palpitations <Nando Oswald PA-C - Last Filed: 09/02/24 13:56> Medical Records Attestation: I reviewed the patient's medical records. Lab Data Attestation: I reviewed the patient's lab results. 09/02/24 12:57 09/02/24 12:57 Labs: Lab Results 09/02/24 Range/Units 12:57 WBC 8.6 (4.5-11.0) X10^3/uL RBC 5.15 (4.0-5.2) X10^6/uL Hgb 14.1 (12.0-16.0) g/dL Hct 41.5 (36-46) % MCV 80.5 (80-100) fL MCH 27.3 (26-34) PG MCHC 34.0 (30-36) % RDW 13.6 (11.6-14.8) % Plt Count 391 (150-400) X10^3/uL Neut % (Auto) 68.8 (50-75) % Lymph % (Auto) 22.8 L (25-40) % [place] % (Auto) 5.6 (3-14) % Eos % (Auto) 1.9 L (2-4) % Baso % (Auto) 0.9 (0-2) % Neut # (Auto) 5900 (0730-6709) /uL Lymph # (Auto) 2000 (5661-1962) /uL [place] # (Auto) 500 (0-900) /uL Eos # (Auto) 200 (0-450) /uL Baso # (Auto) 100 (0-100) /uL Sodium 138 (137-145) mmol/L Potassium 3.8 (3.4-5.1) mmol/L Chloride 108 H (98-107) mmol/L Carbon Dioxide 23 (22-32) mmol/L BUN 9 (7-17) mg/dL Creatinine 0.79 (0.52-1.04) mg/dL Estimated GFR > 60 (>60) mL/min BUN/Creatinine Ratio 11.4 (6-22) Glucose 96 (70-100) mg/dL Calcium 9.2 (8.4-10.2) mg/dL Magnesium 1.8 (1.6-2.3) mg/dL Total Bilirubin 0.5 (0.2-1.3) mg/dL AST 25 (14-36) IU/L ALT 25 (<35) IU/L Alkaline Phosphatase 90 (38-126) U/L Troponin I < 0.012 (0.01-0.034) ng/mL Total Protein 7.7 (6.3-8.2) g/dL Albumin 4.3 (3.5-5.0) g/dL Globulin 3.4 (1.7-4.1) g/dL Albumin/Globulin Ratio 1.3 (1.0-2.8) TSH 1.16 (0.47-4.68) uIU/mL Imaging Data Chest x-ray: Radiologist's Impresson: No acute cardiopulmonary process noted per the radiologist ECG Data Interpretation: See above MDM Narrative Medical decision making narrative: This is a 24-year-old female that recently underwent a stress test and echocardiogram. Patient states that the echocardiogram was within normal limits. The stress test was performed approximately 3 days ago. These results are still pending. The patient is likely experiencing palpitations. There is no abnormalities noted on the 12 lead EKG and she did not have any abnormal runs of V-tach, VFib, SVT or others during her ER stay. Her labs are reassuring. I do not believe this is a PE, STEMI or non-STEMI. The patient has a negative troponin. I will start her on low-dose diltiazem. Patient understands treatment plan. No additional questions at the time of discharge and she will follow up as requested. <Brenda Jiménez, - Last Filed: 09/07/24 04:46> Lab Data Labs: Lab Results 09/02/24 Range/Units 12:57 WBC 8.6 (4.5-11.0) X10^3/uL RBC 5.15 (4.0-5.2) X10^6/uL Hgb 14.1 (12.0-16.0) g/dL Hct 41.5 (36-46) % MCV 80.5 (80-100) fL MCH 27.3 (26-34) PG MCHC 34.0 (30-36) % RDW 13.6 (11.6-14.8) % Plt Count 391 (150-400) X10^3/uL Neut % (Auto) 68.8 (50-75) % Lymph % (Auto) 22.8 L (25-40) % [place] % (Auto) 5.6 (3-14) % Eos % (Auto) 1.9 L (2-4) % Baso % (Auto) 0.9 (0-2) % Neut # (Auto) 5900 (2702-5485) /uL Lymph # (Auto) 2000 (5824-5090) /uL [place] # (Auto) 500 (0-900) /uL Eos # (Auto) 200 (0-450) /uL Baso # (Auto) 100 (0-100) /uL Sodium 138 (137-145) mmol/L Potassium 3.8 (3.4-5.1) mmol/L Chloride 108 H (98-107) mmol/L Carbon Dioxide 23 (22-32) mmol/L BUN 9 (7-17) mg/dL Creatinine 0.79 (0.52-1.04) mg/dL Estimated GFR > 60 (>60) mL/min BUN/Creatinine Ratio 11.4 (6-22) Glucose 96 (70-100) mg/dL Calcium 9.2 (8.4-10.2) mg/dL Magnesium 1.8 (1.6-2.3) mg/dL Total Bilirubin 0.5 (0.2-1.3) mg/dL AST 25 (14-36) IU/L ALT 25 (<35) IU/L Alkaline Phosphatase 90 (38-126) U/L Troponin I < 0.012 (0.01-0.034) ng/mL Total Protein 7.7 (6.3-8.2) g/dL Albumin 4.3 (3.5-5.0) g/dL Globulin 3.4 (1.7-4.1) g/dL Albumin/Globulin Ratio 1.3 (1.0-2.8) TSH 1.16 (0.47-4.68) uIU/mL Discharge Plan Departure Patient Disposition: Home Clinical Impression: Palpitations Instructions: Diltiazem Activity Restrictions/Additional Instructions: Start the medication today as prescribed Follow-up with your Director Of Software Development next week Return here if worse Prescriptions: New diltiazem HCl 30 mg tablet 30 mg PO TID Qty: 20 0RF No Action nitrofurantoin monohyd/m-cryst [Macrobid] 100 mg capsule 100 mg PO BID Qty: 14 0RF Rx Instructions: must administer with a meal/food albuterol sulfate 90 mcg/actuation HFA aerosol inhaler 2 puff INHALATION Q4-6H PRN (Reason: shortness of breath or wheezing) Qty: 8.5 0RF albuterol sulfate 90 mcg/actuation aerosol powdr breath activated 2 inh inhalation Q4-6H PRN (Reason: shortness of breath or wheezing) Qty: 1 0RF meclizine 12.5 mg tablet 12.5 mg PO TID PRN (Reason: dizziness) Qty: 20 0RF ondansetron HCl [Zofran] 4 mg tablet 4 mg PO Q6-8H Qty: 7 0RF omeprazole 20 mg capsule,delayed release(DR/EC) 20 mg PO BID Qty: 60 0RF sucralfate [Carafate] 1 gram tablet 1 g PO TID PRN (Reason: heart burn) Qty: 60 0RF Referrals: Claudia Bonner, SKYLAR [Primary Care Provider] - Stand Alone Forms: Patient Portal/API ED Sign-out <Brenda Jiménez DO - Last Filed: 09/07/24 04:46> Cosign ED Attending Cossaulature Attestation: I was immediately available in the department for consultation.
[2024-09-02 13:52] LABS: Thyroid Stimulating Hormone 1.16 uIU/mL (0.47-4.68)
== END 2024-09-02 13:53 | disposition home or self-care (01) ==
PROVIDERS: Emergency Provider Physician Assistant; PCP Physician Assistant
DX: R00.2 Palpitations (principal); R07.9 Chest pain, unspecified
CPT/HCPCS: 71046; 80053; 83735; 84443; 84484; 85025; 93005; 93010; 99281; 99284

== ENCOUNTER 2024-09-24 18:44 | Emergency (ER) | payer OTHER, MEDICAID, SELFPAY ==
[2024-09-24] VITALS (13 sets, daily range): BP systolic 147–196; BP diastolic 75–119; PULSE 87–130; RESP 13–20; TEMP 36.7; O2SAT 99–100; BMI 45.1
--- NOTE | 2024-09-24 19:13 | DI.RAD.S_ITS ---
PROCEDURE: XR CHEST 1V INDICATIONS: chest pain TECHNIQUE: One view of the chest was acquired. COMPARISON: [facility], CR, XR CHEST 2V, 09/02/2024, 12:45. [facility], CR, XR CHEST 1V, 11/05/2023, 9:24. FINDINGS: Surgical changes and devices: None. Lungs and pleura: Lungs are clear. No pleural effusions or pneumothorax. Mediastinum: Mediastinal contours appear normal. Heart size is normal. Bones and chest wall: No suspicious bony lesions. Overlying soft tissues appear unremarkable. IMPRESSION: No acute cardiopulmonary abnormality is seen. Dictated by: Reynaldo Zaragoza M.D. on 09/24/2024 at 20:08 Approved by: Reynaldo Zaragoza M.D. on 09/24/2024 at 20:09
--- NOTE | 2024-09-24 19:14 | EKG_ITS ---
[address] [address] [address], [place] [address] Test Date: 2024-09-24 Pat Name: Janneth Tang Department: Room: Gender: Female [employer] Porter: BOB THOMPSON : 2000 Requested By: Order Number: [id number] Reading MD: Omkar Hansen Measurements Intervals [place] Rate: 107 P: 55 TX: 142 QRS: 12 QRSD: 84 T: 24 QT: 330 QTc: 440 Interpretive Statements Sinus tachycardia Electronically Signed On 09-27-2024 14:43:17 PDT by Omkar Hansen
[2024-09-24 20:49] LABS: Add Manual Diff / Slide Review NO; Basophils Absolute Auto 0 /uL (0-100); Basophils Percent Auto 0.6 % (0-2); Eosinophils Absolute Auto 200 /uL (0-450); Eosinophils Percent Auto 2.5 % (2-4); Hematocrit 43.4 % (36-46); Hemoglobin 14.4 g/dL (12.0-16.0); Lymphocytes Absolute Auto 2200 /uL (1100-4500); Mean Corpuscular HGB Conc 33.2 % (30-36); Mean Corpuscular Hemoglobin 26.9 PG (26-34); Mean Corpuscular Volume 81.2 fL (80-100); Monocytes Absolute Auto 600 /uL (0-900); Monocytes Percent Auto 7.6 % (3-14); Neutrophils Absolute Auto 5000 /uL (1500-7000); Neutrophils Percent Auto 62.3 % (50-75); Platelet Count 318 X10^3/uL (150-400); Red Blood Cell Count 5.34 X10^6/uL (4.0-5.2); Red Cell Distribution Width 13.6 % (11.6-14.8); White Blood Cell Count 8.1 X10^3/uL (4.5-11.0)
[2024-09-24 20:57] LABS: PTT Partial Thromboplastin Tim 35 SECONDS (25.1-36.5)
[2024-09-24 20:58] LABS: Alanine Aminotransferase 28 IU/L (<35); Albumin 4.3 g/dL (3.5-5.0); Albumin Globulin Ratio 1.1 (1.0-2.8); Alkaline Phosphatase 89 U/L (38-126); Aspartate Aminotransferase 27 IU/L (14-36); BUN Creatinine Ratio 9.5 (6-22); Bilirubin Total 0.4 mg/dL (0.2-1.3); Blood Urea Nitrogen 7 mg/dL (7-17); Calcium 8.9 mg/dL (8.4-10.2); Carbon Dioxide 24 mmol/L (22-32); Chloride 107 mmol/L (98-107); Creatine Kinase 95 U/L (30-135); Estimated Glomerular Filt Rate > 60 mL/min (>60); Globulin 3.9 g/dL (1.7-4.1); Glucose 109 mg/dL (70-100); HEMOLYSIS < 15 (0-50); Lipase 196 U/L (23-300); Magnesium 1.9 mg/dL (1.6-2.3); Potassium 3.7 mmol/L (3.4-5.1); Sodium 138 mmol/L (137-145); Total Protein 8.2 g/dL (6.3-8.2)
[2024-09-24 21:09] LABS: NT-proBNP (BNP-Adult 18+) < 20 pg/mL (<125); Troponin I < 0.012 ng/mL (0.01-0.034)
--- NOTE | 2024-09-24 21:45 | ED.ARRPALP ---
HPI - Arrhythmia/Palpitations General Chief Complaint: Arrhythmia/Palpitations Stated Complaint: rapid heart beat, HBP then LBP Time Seen by Provider: 09/24/24 20:30 Source: patient Mode of arrival: Family Vehicle History of Present Illness HPI narrative: 24-year-old female reports history of palpitations, had cardiac monitoring October 2023 showing some kind of sinus tachycardia problem, did not recognize diagnosis of SVT, however at some point she was started on metoprolol, which was discontinued in July, change to diltiazem 30 mg 3 times daily dosing, she stopped the diltiazem medication 3 days ago as she had home blood pressure readings that were varied, sometimes high sometimes low. Today she has palpitation symptoms, felt like she might pass out. Some associated chest discomfort. Recent loose stools. No black or red stools. Denies nausea or vomiting. Related Data Previous Rx's Medication Instructions Recorded ondansetron HCl 4 mg tablet 4 mg PO Q6-8H nausea #7 tabs 08/31/21 (Zofran) nitrofurantoin 100 mg PO BID #14 caps 11/19/21 monohydrate/macrocrystals 100 mg capsule (Macrobid) albuterol sulfate 90 mcg/actuation 2 puff inhalation Q4-6H PRN 04/13/22 aerosol inhaler shortness of breath or wheezing #8.5 grams albuterol sulfate 90 mcg/actuation 2 inh inhalation Q4-6H PRN 05/16/22 breath activated powder inhaler shortness of breath or wheezing #1 ea omeprazole 20 mg capsule,delayed 20 mg PO BID #60 caps 10/29/22 release sucralfate 1 gram tablet (Carafate) 1 g PO TID PRN heart burn #60 tabs 10/29/22 meclizine 12.5 mg tablet 12.5 mg PO TID PRN dizziness #20 03/18/23 tabs diltiazem HCl 30 mg tablet 30 mg PO TID #20 tabs 09/02/24 diltiazem HCl 30 mg tablet 30 mg PO TID #90 tabs 09/25/24 Allergies Allergy/AdvReac Type Severity Reaction Status Date / Time Penicillins [PENICILLINS] Allergy Unknown Anaphylaxis Verified 09/24/24 19:12 Review of Systems Review of Systems Narrative: see HPI Patient History Medical History (Updated 09/25/24 @ 00:34 by Merrill Carter MD) Nephrolithiasis Healthy adolescent Surgical History No history of previous surgery Social History Smoking Status: Former smoker Smoking Status: Former smoker tobacco type: cigarettes and vaping alcohol intake frequency: holidays/special occasions only Substance Use Type: does not use Exam Narrative Exam Narrative: GENERAL: Well-developed patient, in mild distress. HEAD: Atraumatic. Normocephalic. EYES: Pupils equal round and reactive. Extraocular motions intact. No scleral icterus. No injection or drainage. ENT: Nose without bleeding, purulent drainage. Throat without erythema, tonsillar hypertrophy or exudate. Airway patent. NECK: Trachea midline. Non tender CARDIOVASCULAR: Regular rate and rhythm without murmurs, gallops, or rubs. RESPIRATORY: Clear to auscultation. Breath sounds equal bilaterally. No wheezes, rales, or rhonchi. GASTROINTESTINAL: Abdomen soft, non-tender, nondistended. EXTREMITIES: No edema or joint tenderness. BACK: Nontender without deformity or crepitance. No flank tenderness. NEURO: AOx3. Motor functions grossly nonfocal SKIN: No rash or erythema of visible areas Initial Vital Signs Initial Vital Signs: Vital Signs Temperature 98.1 F 09/24/24 19:06 Pulse Rate 130 H 09/24/24 19:06 Respiratory Rate 20 09/24/24 19:06 Blood Pressure 196/119 H 09/24/24 19:06 Pulse Oximetry 99 09/24/24 19:06 Oxygen Delivery Method Room Air 09/24/24 19:06 Course Orders Ordered: Discontinued Medications Aspirin (Aspirin 81 Mg Chew Tab) 324 mg PO NOW ONE Stop: 09/24/24 19:14 Last Admin: 09/24/24 22:04 Dose: Not Given Documented By: ANA ROSA Diltiazem HCl (Diltiazem 30 Mg Tablet) 30 mg PO NOW ONE Stop: 09/24/24 21:56 Last Admin: 09/24/24 22:01 Dose: 30 mg Documented By: ANA ROSA Vital Signs Vital signs: Vital Signs - 8 hr 09/24/24 19:06 09/24/24 20:28 09/24/24 20:29 Temperature 98.1 F Pulse Rate 130 H 99 H Respiratory Rate 20 Blood Pressure 196/119 H 158/84 H Pulse Oximetry 99 Oxygen Delivery Method Room Air 09/24/24 20:30 09/24/24 20:30 09/24/24 21:00 Temperature Pulse Rate 89 88 Respiratory Rate 19 15 Blood Pressure 150/84 H Pulse Oximetry 99 Oxygen Delivery Method 09/24/24 21:00 Temperature Pulse Rate Respiratory Rate Blood Pressure 149/75 H Pulse Oximetry Oxygen Delivery Method MDM - Arrhythmia/Palpitations Lab Data Attestation: I reviewed the patient's lab results. Lab results narrative: CBC normal, CMP normal, lipase normal, troponin x2 negative/unmeasurable 09/24/24 20:30 09/24/24 20:30 Labs: Lab Results 09/24/24 09/24/24 Range/Units 20:30 22:34 WBC 8.1 (4.5-11.0) X10^3/uL RBC 5.34 H (4.0-5.2) X10^6/uL Hgb 14.4 (12.0-16.0) g/dL Hct 43.4 (36-46) % MCV 81.2 (80-100) fL MCH 26.9 (26-34) PG MCHC 33.2 (30-36) % RDW 13.6 (11.6-14.8) % Plt Count 318 (150-400) X10^3/uL Neut % (Auto) 62.3 (50-75) % Lymph % (Auto) 27.0 (25-40) % [place] % (Auto) 7.6 (3-14) % Eos % (Auto) 2.5 (2-4) % Baso % (Auto) 0.6 (0-2) % Neut # (Auto) 5000 (1898-6694) /uL Lymph # (Auto) 2200 (3081-3893) /uL [place] # (Auto) 600 (0-900) /uL Eos # (Auto) 200 (0-450) /uL Baso # (Auto) 0 (0-100) /uL PT 12.0 (9.4-12.5) SECONDS INR 1.0 (0.9-1.3) APTT 35 (25.1-36.5) SECONDS Sodium 138 (137-145) mmol/L Potassium 3.7 (3.4-5.1) mmol/L Chloride 107 (98-107) mmol/L Carbon Dioxide 24 (22-32) mmol/L BUN 7 (7-17) mg/dL Creatinine 0.74 (0.52-1.04) mg/dL Estimated GFR > 60 (>60) mL/min BUN/Creatinine Ratio 9.5 (6-22) Glucose 109 H (70-100) mg/dL Calcium 8.9 (8.4-10.2) mg/dL Magnesium 1.9 (1.6-2.3) mg/dL Total Bilirubin 0.4 (0.2-1.3) mg/dL AST 27 (14-36) IU/L ALT 28 (<35) IU/L Alkaline Phosphatase 89 (38-126) U/L Total Creatine Kinase 95 (30-135) U/L Troponin I < 0.012 < 0.012 (0.01-0.034) ng/mL NT-Pro-B Natriuret Pep < 20 (<125) pg/mL Total Protein 8.2 (6.3-8.2) g/dL Albumin 4.3 (3.5-5.0) g/dL Globulin 3.9 (1.7-4.1) g/dL Albumin/Globulin Ratio 1.1 (1.0-2.8) Lipase 196 (23-300) U/L Point of Care Testing Test Results Negative Urine Dip Bedside Urine Glucose Negative Bedside Urine Bilirubin - Negative Bedside Urine Ketone - Negative Urine Specific [place] 1.010 Bedside Urine Occult Blood - Negative Bedside Urine pH 7.5 Bedside Urine Protein - Negative Bedside Urine Urobilinogen - Negative Bedside Urine Nitrite - Negative Bedside Urine Leukocytes - Negative Esterase Imaging Data Chest x-ray: Radiologist's Impresson: [address] [address] XRay Report Signed Patient: Janneth Tang MR#: [id number] : 2000 Acct:[id number] Age/Sex: 24 / F Date of Service: 09/24/24 Loc: ED Accession Number: [id number] Procedure: XR chest 1V Ordering Provider: Merrill Carter MD PROCEDURE: XR CHEST 1V INDICATIONS: chest pain TECHNIQUE: One view of the chest was acquired. COMPARISON: [facility], CR, XR CHEST 2V, 09/02/2024, 12:45. [facility], CR, XR CHEST 1V, 11/05/2023, 9:24. FINDINGS: Surgical changes and devices: None. Lungs and pleura: Lungs are clear. No pleural effusions or pneumothorax. Mediastinum: Mediastinal contours appear normal. Heart size is normal. Bones and chest wall: No suspicious bony lesions. Overlying soft tissues appear unremarkable. IMPRESSION: No acute cardiopulmonary abnormality is seen. Dictated by: Reynaldo Zaragoza M.D. on 09/24/2024 at 20:08 Approved by: Reynaldo Zaragoza M.D. on 09/24/2024 at 20:09 ECG Data Attestation: I personally reviewed and interpreted this ECG as follows: Interpretation: Sinus tachycardia with rate of 107, no obvious ST segment elevation or depression changes. SC 142, QRS 84, QTC 440. MDM Narrative Medical decision making narrative: 24-year-old female with history of palpitations, some form of sinus tachycardia diagnosis on previous cardiac monitoring, had previously been on metoprolol which was stopped in July 2024, more recently taken diltiazem 30 mg oral three times daily, which patient stopped taking 3 days ago as she had varied high and low blood pressure readings at home. Now with palpitation and chest comfort symptoms tonight. [place] like she might almost pass out. Recent diarrhea noted. Screening heart rate mild sinus tachycardia noted. Afebrile. Labs pending. Stool studies if she produces a specimen. EKG shows sinus tachycardia, no obvious ischemic changes. Troponin negative. Electrolytes unremarkable. No stool specimen thus far for testing. CXR negative per radiology report. Will repeat troponin. No stool specimen received. Interval troponin also negative. Discharged patient home. Refills sent for Diltiazem 30mg tid, follow with her PCP and [employer] division manager advised. Return precautions discussed Discharge Plan Departure Patient Disposition: Home Clinical Impression: Heart palpitations Activity Restrictions/Additional Instructions: History of tachycardia, previously on metoprolol, switched to diltiazem, however you had variable blood pressure readings at home and stopped the diltiazem 3 days ago. Palpitation symptoms tonight. EKG and blood testing not suggestive of heart attack at this time. Oral dose of diltiazem 30 mg given, you tolerated this well, you had stable blood pressure, your heart rate was not too low, was not fast, no ectopy on the clinical social work aide while observed in the emergency department. We will refill your diltiazem 30 mg to take 3 times daily for now, follow up with your regular doctor to assess symptoms back on medication. Follow up with the [employer] division manager Dr. Hauser as planned. Return earlier to this/nearest emergency department for any change worsening symptoms or any concerns prior Prescriptions: New diltiazem HCl 30 mg tablet 30 mg PO TID Qty: 90 0RF No Action nitrofurantoin monohyd/m-cryst [Macrobid] 100 mg capsule 100 mg PO BID Qty: 14 0RF Rx Instructions: must administer with a meal/food albuterol sulfate 90 mcg/actuation HFA aerosol inhaler 2 puff INHALATION Q4-6H PRN (Reason: shortness of breath or wheezing) Qty: 8.5 0RF albuterol sulfate 90 mcg/actuation aerosol powdr breath activated 2 inh inhalation Q4-6H PRN (Reason: shortness of breath or wheezing) Qty: 1 0RF meclizine 12.5 mg tablet 12.5 mg PO TID PRN (Reason: dizziness) Qty: 20 0RF diltiazem HCl 30 mg tablet 30 mg PO TID Qty: 20 0RF ondansetron HCl [Zofran] 4 mg tablet 4 mg PO Q6-8H Qty: 7 0RF omeprazole 20 mg capsule,delayed release(DR/EC) 20 mg PO BID Qty: 60 0RF sucralfate [Carafate] 1 gram tablet 1 g PO TID PRN (Reason: heart burn) Qty: 60 0RF Referrals: Claudia Bonner PA-C [Primary Care Provider] - Lee Hauser MD [Physician] - Stand Alone Forms: Patient Portal/API
[2024-09-24] MEDS: dilTIAZem 30 MG TABLET PO (22:01)
[2024-09-24 23:04] LABS: Troponin I < 0.012 ng/mL (0.01-0.034)
[2024-09-25] VITALS: PULSE 87; RESP 14; O2SAT 97
[2024-09-25 00:01] VITALS: BP 144/70; PULSE 84; RESP 22; O2SAT 98
[2024-09-25 00:30] VITALS: PULSE 80; RESP 17; O2SAT 98
[2024-09-25 00:31] VITALS: BP 154/81; PULSE 95; RESP 21; O2SAT 99
== END 2024-09-25 00:43 | disposition home or self-care (01) ==
PROVIDERS: Emergency Provider Emergency Medicine; PCP Physician Assistant
DX: R00.2 Palpitations (principal); R00.0 Tachycardia, unspecified; R07.9 Chest pain, unspecified; R19.7 Diarrhea, unspecified
CPT/HCPCS: 36415; 71045; 80053; 81003; 81025; 82550; 83690; 83735; 83880; 84484; 85025; 85610; 85730; 93005; 99284

== ENCOUNTER 2024-11-09 18:56 | Emergency (ER) | payer OTHER, MEDICAID, SELFPAY ==
[2024-11-09 19:03] VITALS: BP 155/99; PULSE 86; RESP 17; TEMP 37.2; O2SAT 98; BMI 46.5
--- NOTE | 2024-11-10 01:52 | ED.EAR ---
HPI - Ear Problem General Chief complaint: Ear Stated complaint: rt ear pain Source: patient Mode of arrival: Ambulatory History of Present Illness HPI Narrative: Patient left without being seen by provider Related Data Previous Rx's Medication Instructions Recorded ondansetron HCl 4 mg tablet 4 mg PO Q6-8H nausea #7 tabs 08/31/21 (Zofran) nitrofurantoin 100 mg PO BID #14 caps 11/19/21 monohydrate/macrocrystals 100 mg capsule (Macrobid) albuterol sulfate 90 mcg/actuation 2 puff inhalation Q4-6H PRN 04/13/22 aerosol inhaler shortness of breath or wheezing #8.5 grams albuterol sulfate 90 mcg/actuation 2 inh inhalation Q4-6H PRN 05/16/22 breath activated powder inhaler shortness of breath or wheezing #1 ea omeprazole 20 mg capsule,delayed 20 mg PO BID #60 caps 10/29/22 release sucralfate 1 gram tablet (Carafate) 1 g PO TID PRN heart burn #60 tabs 10/29/22 meclizine 12.5 mg tablet 12.5 mg PO TID PRN dizziness #20 03/18/23 tabs diltiazem HCl 30 mg tablet 30 mg PO TID #20 tabs 09/02/24 diltiazem HCl 30 mg tablet 30 mg PO TID #90 tabs 09/25/24 Allergies Allergy/AdvReac Type Severity Reaction Status Date / Time Penicillins [PENICILLINS] Allergy Unknown Anaphylaxis Verified 09/24/24 19:12 Patient History Medical History (Updated 11/09/24 @ 20:38 by Monica Beckford RN) Nephrolithiasis Healthy adolescent Surgical History No history of previous surgery Social History Smoking Status: Former smoker Smoking Status: Former smoker tobacco type: cigarettes and vaping alcohol intake frequency: holidays/special occasions only Exam Initial Vital Signs Initial Vital Signs: Vital Signs Temperature 98.9 F 11/09/24 19:03 Pulse Rate 86 11/09/24 19:03 Respiratory Rate 17 11/09/24 19:03 Blood Pressure 155/99 H 11/09/24 19:03 Pulse Oximetry 98 11/09/24 19:03 Oxygen Delivery Method Room Air 11/09/24 19:03 Course Vital Signs Vital signs: Vital Signs - 8 hr 11/09/24 19:03 Temperature 98.9 F Pulse Rate 86 Respiratory Rate 17 Blood Pressure 155/99 H Pulse Oximetry 98 Oxygen Delivery Method Room Air Discharge Plan Departure Patient Disposition: Left Without Being Seen Clinical Impression: Patient left without being seen Prescriptions: No Action nitrofurantoin monohyd/m-cryst [Macrobid] 100 mg capsule 100 mg PO BID Qty: 14 0RF Rx Instructions: must administer with a meal/food albuterol sulfate 90 mcg/actuation HFA aerosol inhaler 2 puff INHALATION Q4-6H PRN (Reason: shortness of breath or wheezing) Qty: 8.5 0RF albuterol sulfate 90 mcg/actuation aerosol powdr breath activated 2 inh inhalation Q4-6H PRN (Reason: shortness of breath or wheezing) Qty: 1 0RF meclizine 12.5 mg tablet 12.5 mg PO TID PRN (Reason: dizziness) Qty: 20 0RF diltiazem HCl 30 mg tablet 30 mg PO TID Qty: 20 0RF ondansetron HCl [Zofran] 4 mg tablet 4 mg PO Q6-8H Qty: 7 0RF omeprazole 20 mg capsule,delayed release(DR/EC) 20 mg PO BID Qty: 60 0RF sucralfate [Carafate] 1 gram tablet 1 g PO TID PRN (Reason: heart burn) Qty: 60 0RF diltiazem HCl 30 mg tablet 30 mg PO TID Qty: 90 0RF
== END 2024-11-09 20:30 | disposition left against medical advice (07) ==
PROVIDERS: Emergency Provider Emergency Medicine; PCP Physician Assistant
DX: H92.01 Otalgia, right ear (principal)
CPT/HCPCS: 99281

== ENCOUNTER 2024-11-12 18:14 | Emergency (ER) | payer OTHER, SELFPAY ==
[2024-11-12 18:21] VITALS: BP 174/99; PULSE 99; RESP 18; TEMP 36.9; O2SAT 99; BMI 46.5
--- NOTE | 2024-11-12 18:28 | EKG_ITS ---
[facility] [address] [place] [id number] Test Date: 2024-11-12 Pat Name: Janneth Tang Department: [facility] Room: Gender: Female Property Coordinator: SUAD : 2000 Requested By: Order Number: [id number] Reading MD: Bay Jack MD Measurements Intervals [place] Rate: 90 P: 40 MO: 146 QRS: 30 QRSD: 80 T: 22 QT: 348 QTc: 425 Interpretive Statements Normal sinus rhythm Electronically Signed On 11-14-2024 6:38:44 PST by Bay Jack MD
[2024-11-12 18:57] LABS: Add Manual Diff / Slide Review NO; Basophils Absolute Auto 100 /uL (0-100); Basophils Percent Auto 0.9 % (0-2); Eosinophils Absolute Auto 200 /uL (0-450); Eosinophils Percent Auto 1.8 % (2-4); Hematocrit 43.4 % (36-46); Hemoglobin 14.6 g/dL (12.0-16.0); Lymphocytes Absolute Auto 2100 /uL (1100-4500); Lymphocytes Percent Auto 21.7 % (25-40); Mean Corpuscular HGB Conc 33.7 % (30-36); Mean Corpuscular Hemoglobin 26.9 PG (26-34); Monocytes Absolute Auto 600 /uL (0-900); Monocytes Percent Auto 6.1 % (3-14); Neutrophils Absolute Auto 6800 /uL (1500-7000); Neutrophils Percent Auto 69.5 % (50-75); Platelet Count 386 X10^3/uL (150-400); Red Blood Cell Count 5.42 X10^6/uL (4.0-5.2); Red Cell Distribution Width 13.7 % (11.6-14.8); White Blood Cell Count 9.8 X10^3/uL (4.5-11.0)
[2024-11-12 19:07] LABS: Alanine Aminotransferase 34 IU/L (<35); Albumin 4.5 g/dL (3.5-5.0); Albumin Globulin Ratio 1.2 (1.0-2.8); Alkaline Phosphatase 100 U/L (38-126); Aspartate Aminotransferase 31 IU/L (14-36); BUN Creatinine Ratio 12.2 (6-22); Bilirubin Total 0.4 mg/dL (0.2-1.3); Blood Urea Nitrogen 11 mg/dL (7-17); Calcium 9.4 mg/dL (8.4-10.2); Carbon Dioxide 25 mmol/L (22-32); Chloride 105 mmol/L (98-107); Estimated Glomerular Filt Rate > 60 mL/min (>60); Globulin 3.9 g/dL (1.7-4.1); Glucose 106 mg/dL (70-100); HEMOLYSIS < 15 (0-50); Magnesium 1.7 mg/dL (1.6-2.3); Potassium 3.7 mmol/L (3.4-5.1); Sodium 137 mmol/L (137-145); Total Protein 8.4 g/dL (6.3-8.2)
[2024-11-12 19:18] LABS: Pregnancy Test Serum,Qual Negative (Negative)
[2024-11-12 19:38] LABS: Thyroid Stimulating Hormone 1.77 uIU/mL (0.47-4.68)
[2024-11-12 20:17] VITALS: PULSE 87; RESP 16; O2SAT 99
[2024-11-12 20:18] VITALS: BP 169/100; PULSE 89; RESP 18; O2SAT 97
[2024-11-12 20:30] VITALS: BP 163/95; PULSE 81; RESP 13; O2SAT 99
--- NOTE | 2024-11-12 20:32 | ED.ARRPALP ---
HPI - Arrhythmia/Palpitations General Chief Complaint: Arrhythmia/Palpitations Stated Complaint: rapid heart beat, HBP Time Seen by Provider: 11/12/24 20:16 Source: patient Mode of arrival: Ambulatory History of Present Illness HPI narrative: Patient is a 24-year-old female who earlier today had an episode where she felt like her heart was beating fast. She became short of breath. Became lightheaded. This has happened to her in the past. She was worn a Holter monitor. Has seen Cardiology. Is on diltiazem for ?inappropriate tachycardia. At the time of my evaluation she was asymptomatic. No recent fevers. She has taken all of her medicines as directed. She reports that the symptoms today lasted several minutes. Related Data Previous Rx's Medication Instructions Recorded ondansetron HCl 4 mg tablet 4 mg PO Q6-8H nausea #7 tabs 08/31/21 (Zofran) nitrofurantoin 100 mg PO BID #14 caps 11/19/21 monohydrate/macrocrystals 100 mg capsule (Macrobid) albuterol sulfate 90 mcg/actuation 2 puff inhalation Q4-6H PRN 04/13/22 aerosol inhaler shortness of breath or wheezing #8.5 grams albuterol sulfate 90 mcg/actuation 2 inh inhalation Q4-6H PRN 05/16/22 breath activated powder inhaler shortness of breath or wheezing #1 ea omeprazole 20 mg capsule,delayed 20 mg PO BID #60 caps 10/29/22 release sucralfate 1 gram tablet (Carafate) 1 g PO TID PRN heart burn #60 tabs 10/29/22 meclizine 12.5 mg tablet 12.5 mg PO TID PRN dizziness #20 03/18/23 tabs diltiazem HCl 30 mg tablet 30 mg PO TID #20 tabs 09/02/24 diltiazem HCl 30 mg tablet 30 mg PO TID #90 tabs 09/25/24 Allergies Allergy/AdvReac Type Severity Reaction Status Date / Time Penicillins [PENICILLINS] Allergy Unknown Anaphylaxis Verified 11/12/24 18:21 Review of Systems Review of Systems Narrative: See HPI Patient History Medical History Nephrolithiasis Healthy adolescent Surgical History No history of previous surgery Social History Smoking Status: Former smoker Smoking Status: Former smoker tobacco type: cigarettes and vaping alcohol intake frequency: holidays/special occasions only Exam Initial Vital Signs Initial Vital Signs: Vital Signs Temperature 98.5 F 11/12/24 18:21 Pulse Rate 99 H 11/12/24 18:21 Respiratory Rate 18 11/12/24 18:21 Blood Pressure 174/99 H 11/12/24 18:21 Pulse Oximetry 99 11/12/24 18:21 Oxygen Delivery Method Room Air 11/12/24 18:21 Const General: cooperative, comfortable and No ill appearing HENMT Head: normal to inspection and normocephalic Resp Effort & Inspection: normal respiratory effort Cardio Rate: regular rate Rhythm: regular rhythm Course Orders Ordered: ED Orders 11/12/24 18:28 EKG-12 Lead Stat 11/12/24 18:48 Complete Blood Count AUTO DIFF Stat Comprehensive Metabolic Panel Stat Magnesium Stat Test Serum,Qual Stat Thyroid Stimulating Hormone Stat Vital Signs Vital signs: Vital Signs - 8 hr 11/12/24 18:21 11/12/24 20:17 11/12/24 20:18 Temperature 98.5 F Pulse Rate 99 H 87 89 Respiratory Rate 18 16 18 Blood Pressure 174/99 H 169/100 H Pulse Oximetry 99 99 97 Oxygen Delivery Method Room Air Room Air 11/12/24 20:30 11/12/24 20:30 Temperature Pulse Rate 81 Respiratory Rate 13 Blood Pressure 163/95 H Pulse Oximetry 99 Oxygen Delivery Method MDM - Arrhythmia/Palpitations Lab Data Attestation: I reviewed the patient's lab results. 11/12/24 18:48 11/12/24 18:48 Labs: Lab Results 11/12/24 Range/Units 18:48 WBC 9.8 (4.5-11.0) X10^3/uL RBC 5.42 H (4.0-5.2) X10^6/uL Hgb 14.6 (12.0-16.0) g/dL Hct 43.4 (36-46) % MCV 80.0 (80-100) fL MCH 26.9 (26-34) PG MCHC 33.7 (30-36) % RDW 13.7 (11.6-14.8) % Plt Count 386 (150-400) X10^3/uL Neut % (Auto) 69.5 (50-75) % Lymph % (Auto) 21.7 L (25-40) % [place] % (Auto) 6.1 (3-14) % Eos % (Auto) 1.8 L (2-4) % Baso % (Auto) 0.9 (0-2) % Neut # (Auto) 6800 (0666-2047) /uL Lymph # (Auto) 2100 (9993-6195) /uL [place] # (Auto) 600 (0-900) /uL Eos # (Auto) 200 (0-450) /uL Baso # (Auto) 100 (0-100) /uL Sodium 137 (137-145) mmol/L Potassium 3.7 (3.4-5.1) mmol/L Chloride 105 (98-107) mmol/L Carbon Dioxide 25 (22-32) mmol/L BUN 11 (7-17) mg/dL Creatinine 0.90 (0.52-1.04) mg/dL Estimated GFR > 60 (>60) mL/min BUN/Creatinine Ratio 12.2 (6-22) Glucose 106 H (70-100) mg/dL Calcium 9.4 (8.4-10.2) mg/dL Magnesium 1.7 (1.6-2.3) mg/dL Total Bilirubin 0.4 (0.2-1.3) mg/dL AST 31 (14-36) IU/L ALT 34 (<35) IU/L Alkaline Phosphatase 100 (38-126) U/L Total Protein 8.4 H (6.3-8.2) g/dL Albumin 4.5 (3.5-5.0) g/dL Globulin 3.9 (1.7-4.1) g/dL Albumin/Globulin Ratio 1.2 (1.0-2.8) TSH 1.77 (0.47-4.68) uIU/mL Serum , Qual Negative (Negative) ECG Data Attestation: I personally reviewed and interpreted this ECG as follows: Interpretation: Sinus rhythm Ventricular rate 90 Normal axis Normal QRS Normal QTC No ST T wave changes MDM Narrative Medical decision making narrative: Patient was now asymptomatic. Sinus rhythm on her EKG sinus rhythm on the monitor. Is not feeling palpitations. Labs unremarkable. We will hold on making any changes to her medicines for now. She will need to contact her primary doctor or her underwriting internship to discuss either repeat Holter monitor or changing any of her medications. She was given return precautions. She expressed understanding and agreement with plan. Discharge Plan Departure Patient Disposition: Home Clinical Impression: Palpitations Instructions: Arrhythmias Activity Restrictions/Additional Instructions: Continue to take all of your medications as directed. Recommend that you contact your primary doctor and also your underwriting internship about the symptoms that you are having today to see if they recommend changing any medications or if they recommend repeating the Holter monitor. Return to the emergency department for new symptoms. Prescriptions: No Action nitrofurantoin monohyd/m-cryst [Macrobid] 100 mg capsule 100 mg PO BID Qty: 14 0RF Rx Instructions: must administer with a meal/food albuterol sulfate 90 mcg/actuation HFA aerosol inhaler 2 puff INHALATION Q4-6H PRN (Reason: shortness of breath or wheezing) Qty: 8.5 0RF albuterol sulfate 90 mcg/actuation aerosol powdr breath activated 2 inh inhalation Q4-6H PRN (Reason: shortness of breath or wheezing) Qty: 1 0RF meclizine 12.5 mg tablet 12.5 mg PO TID PRN (Reason: dizziness) Qty: 20 0RF diltiazem HCl 30 mg tablet 30 mg PO TID Qty: 20 0RF ondansetron HCl [Zofran] 4 mg tablet 4 mg PO Q6-8H Qty: 7 0RF omeprazole 20 mg capsule,delayed release(DR/EC) 20 mg PO BID Qty: 60 0RF sucralfate [Carafate] 1 gram tablet 1 g PO TID PRN (Reason: heart burn) Qty: 60 0RF diltiazem HCl 30 mg tablet 30 mg PO TID Qty: 90 0RF Referrals: Claudia Bonner PA-C [Primary Care Provider] - Stand Alone Forms: Patient Portal/API/Survey
== END 2024-11-12 20:41 | disposition home or self-care (01) ==
PROVIDERS: Emergency Provider Emergency Medicine; PCP Physician Assistant
DX: R00.2 Palpitations (principal)
CPT/HCPCS: 36415; 80053; 83735; 84443; 84703; 85025; 93005; 99283; 99284

== ENCOUNTER 2025-02-04 13:27 | Emergency (ER) | payer OTHER, SELFPAY ==
[2025-02-04 13:37] VITALS: BP 163/98; PULSE 97; RESP 17; TEMP 36.2; O2SAT 97; BMI 48.2
--- NOTE | 2025-02-04 13:45 | EKG_ITS ---
[address] [address] Test Date: 2025-02-04 Pat Name: Janneth Tang Department: [facility] Room: Gender: Female Clinic Lead: SUAD : 2000 Requested By: Order Number: [id number] Reading MD: Del Hampton Measurements Intervals [place] Rate: 91 P: 53 GA: 140 QRS: 26 QRSD: 82 T: 19 QT: 348 QTc: 428 Interpretive Statements Normal sinus rhythm Electronically Signed On 02-06-2025 8:43:38 PDT by Del Hampton
--- NOTE | 2025-02-04 14:06 | ED_ITS ---
HPI - URI/Sore Throat <Quyen Tyler PA-C - Last Filed: 02/04/25 18:56> General Chief Complaint: Upper Respiratory Symptoms Stated Complaint: cough with phlegm and chest pain Time Seen by Provider: 02/04/25 14:06 Source: patient Mode of arrival: Ambulatory History of Present Illness HPI Narrative: Ms. Janneth Tang is a pleasant 24-year-old female with a past medical history of inappropriate sinus tachycardia? on diltiazem who presents to the emergency department for productive cough x1 month. Patient states she was sick with a cold back in December however she has continued to have increased sputum prod uction since then. She also occasionally gets chest pain that she describes as intermittent pain in the ribcage below both breasts that is worse at night before bed. She has gotten a few episodes of this chest pain over the last month however it is become more frequent in the last few days and at 1 point she had some pain in the center of her chest as well which resolved. This time she has not currently experiencing the pain. She does not feel short of breath. No hemoptysis. Her throat feels dry and she occasionally feels warm when she wakes up in the morning but no documented fevers. Denies GI symptoms, current OCPs or smoking. She does have a history of prior smoking/vaping but quit. No recent travel or surgery. No lower leg swelling or pain. No medications prior to arrival. Related Data Previous Rx's Medication Instructions Recorded ondansetron HCl 4 mg tablet 4 mg PO Q6-8H nausea #7 tabs 08/31/21 (Zofran) nitrofurantoin 100 mg PO BID #14 caps 11/19/21 monohydrate/macrocrystals 100 mg capsule (Macrobid) albuterol sulfate 90 mcg/actuation 2 puff inhalation Q4-6H PRN 04/13/22 aerosol inhaler shortness of breath or wheezing #8.5 grams albuterol sulfate 90 mcg/actuation 2 inh inhalation Q4-6H PRN 05/16/22 breath activated powder inhaler shortness of breath or wheezing #1 ea omeprazole 20 mg capsule,delayed 20 mg PO BID #60 caps 10/29/22 release sucralfate 1 gram tablet (Carafate) 1 g PO TID PRN heart burn #60 tabs 10/29/22 meclizine 12.5 mg tablet 12.5 mg PO TID PRN dizziness #20 03/18/23 tabs diltiazem HCl 30 mg tablet 30 mg PO TID #20 tabs 09/02/24 diltiazem HCl 30 mg tablet 30 mg PO TID #90 tabs 09/25/24 Allergies Allergy/AdvReac Type Severity Reaction Status Date / Time Penicillins [PENICILLINS] Allergy Unknown Anaphylaxis Verified 02/04/25 13:36 Review of Systems <Quyen Tyler PA-C - Last Filed: 02/04/25 18:56> Review of Systems ROS Unobtainable: All systems reviewed & are unremarkable except as noted in HPI and below Patient History <Quyen Tyler PA-C - Last Filed: 02/04/25 18:56> Medical History (Updated 02/04/25 @ 15:42 by Quyen Tyler PA-C) Nephrolithiasis Healthy adolescent Surgical History No history of previous surgery Social History Smoking Status: Former smoker Smoking Status: Former smoker tobacco type: cigarettes and vaping alcohol intake frequency: holidays/special occasions only Exam <Quyen Tyler PA-C - Last Filed: 02/04/25 18:56> Narrative Exam Narrative: GENERAL: 24 year old patient appears stated age. Overweight patient, in no acute distress. HEAD: Atraumatic. Normocephalic. NECK: Trachea midline. Cervical ROM intact. CARDIOVASCULAR: Regular rate and rhythm. RESPIRATORY: ?Nonlabored respirations. ?Speaking in clear, full sentences. ?Some inspiratory coarse breath sounds in left lung sosa however no rhonchi, no wheezing. ? EXTREMITIES: No edema or joint tenderness. BACK: Nontender without deformity or crepitance. No flank tenderness. NEURO: AOx3. ?Clear speech. ?Moves all 4 extremities appropriately. SKIN: No rash or erythema of visible areas Initial Vital Signs Initial Vital Signs: Vital Signs Temperature 97.2 F L 02/04/25 13:37 Pulse Rate 97 H 02/04/25 13:37 Respiratory Rate 17 02/04/25 13:37 Blood Pressure 163/98 H 02/04/25 13:37 Pulse Oximetry 97 02/04/25 13:37 Oxygen Delivery Method Room Air 02/04/25 13:37 <DO Traci Jorgensen Last Filed: 02/07/25 01:33> Initial Vital Signs Initial Vital Signs: Vital Signs Temperature 97.2 F L 02/04/25 13:37 Pulse Rate 97 H 02/04/25 13:37 Respiratory Rate 17 02/04/25 13:37 Blood Pressure 163/98 H 02/04/25 13:37 Pulse Oximetry 97 02/04/25 13:37 Oxygen Delivery Method Room Air 02/04/25 13:37 Course <SKYLAR Kelly Last Filed: 02/04/25 18:56> Orders Ordered: Discontinued Medications Acetaminophen (Acetaminophen 325 Mg Tablet) 975 mg PO NOW ONE Stop: 02/04/25 14:19 Last Admin: 02/04/25 14:37 Dose: Not Given Documented By: NITA Ibuprofen (Ibuprofen 400 Mg Tablet) 400 mg PO NOW ONE Stop: 02/04/25 14:19 Last Admin: 02/04/25 14:37 Dose: Not Given Documented By: NITA Vital Signs Vital signs: Vital Signs - 8 hr 02/04/25 13:37 02/04/25 15:47 Temperature 97.2 F L Pulse Rate 97 H 77 Respiratory Rate 17 16 Blood Pressure 163/98 H 166/99 H Pulse Oximetry 97 98 Oxygen Delivery Method Room Air Room Air <DO Traci Jorgensen Last Filed: 02/07/25 01:33> Orders Ordered: Discontinued Medications Acetaminophen (Acetaminophen 325 Mg Tablet) 975 mg PO NOW ONE Stop: 02/04/25 14:19 Last Admin: 02/04/25 14:37 Dose: Not Given Documented By: NITA Ibuprofen (Ibuprofen 400 Mg Tablet) 400 mg PO NOW ONE Stop: 02/04/25 14:19 Last Admin: 02/04/25 14:37 Dose: Not Given Documented By: NITA Vital Signs Vital signs: Vital Signs - 8 hr 02/04/25 13:37 02/04/25 15:47 Temperature 97.2 F L Pulse Rate 97 H 77 Respiratory Rate 17 16 Blood Pressure 163/98 H 166/99 H Pulse Oximetry 97 98 Oxygen Delivery Method Room Air Room Air MDM - URI/Sore Throat <SKYLAR Kelly Last Filed: 02/04/25 18:56> Medical Records Attestation: I reviewed the patient's medical records. Medical records narrative: Prior ED visits for palpitations, vertigo, atypical chest pain, dizziness, closed head injury Lab Data Labs: Lab Results 02/04/25 Range/Units 14:20 SARS-CoV-2 (PCR) Negative (Negative) Influenza A (RT-PCR) Flu a negative (NEGATIVE) Influenza B (RT-PCR) Flu b negative (NEGATIVE) RSV (PCR) Negative (Negative) Imaging Data Chest x-ray: Radiologist's Impression: PROCEDURE: XR CHEST 2V INDICATIONS: productive cough x 1month concern for pneumonia TECHNIQUE: 2 views of the chest were acquired. COMPARISON: [facility], CR, XR CHEST 1V, 09/24/2024, 19:18. [facility], CR, XR CHEST 2V, 09/02/2024, 12:45. FINDINGS: Surgical changes and devices: None. Lungs and pleura: Lungs are clear. No pleural effusions or pneumothorax. Mediastinum: Mediastinal contours are normal. Heart size is normal. Bones and chest wall: No suspicious bony abnormalities. Soft tissues appear unremarkable. IMPRESSION: No acute cardiopulmonary abnormality is seen. MDM Narrative Medical decision making narrative: 24-year-old female with a past medical history of inappropriate sinus tachycardia? on diltiazem who presents to the emergency department for productive cough x1 month. Differential diagnosis includes but is not limited to pneumonia, viral syndrome, costochondritis, etc. On exam the patient is in no acute distress, nontoxic-appearing, blood pressure 163/98, heart rate 97, temperature 97.2?, oxygen saturation 97% in triage. She has been having intermittent productive cough and intermittent bilateral rib pain over the last month. No fevers, no pleuritic pain, no history of VTE or hormone use. No pain at this time and denies medications, denies IV or labs or IM injections. She would like to check for pleural effusions, that is her concern today. Viral swab and chest x-ray ordered. Chest x-ray negative, no acute cardiopulmonary abnormality is seen. For pack viral swab negative. Patient was very reassured by this findings in his not interested in any additional workup. She is asymptomatic at this time. We discussed that her clear phlegm could be related to her seasonal allergies, and I recommended she take a daily allergy pill in addition to using Flonase. I did also encourage the use of ibuprofen and acetaminophen if needed for pain. We discussed strict ED return precautions and advised prompt PCP follow up, blood pressure recheck. Patient verbalized understanding of all information is agreeable to the plan. She is stable for discharge home. <Brenda Jiménez, DO - Last Filed: 02/07/25 01:33> Lab Data Labs: Lab Results 02/04/25 Range/Units 14:20 SARS-CoV-2 (PCR) Negative (Negative) Influenza A (RT-PCR) Flu a negative (NEGATIVE) Influenza B (RT-PCR) Flu b negative (NEGATIVE) RSV (PCR) Negative (Negative) ECG Data Attestation: I personally reviewed and interpreted this ECG as follows: Prior ECG tracings: available for review Interpretation: Sinus rhythm rate of 91 MT 140 QRS 82 QTC of 428, no acute ST changes appreciated. Patient has prior from 11/12/2024 which appears similar. Discharge Plan Departure Patient Disposition: Home Clinical Impression: Cough productive of clear sputum Instructions: DI for Cough -- Adult Activity Restrictions/Additional Instructions: Dear Ms. Tagn, Your chest x-ray today reveals no pneumonia and no pleural effusions. Please rest, hydrate, use ibuprofen and Tylenol for pain and Flonase and a daily allergy pill for allergy symptoms. Please follow up with your primary care doctor and return to the emergency department if you develop any new or worsening symptoms, chest pain, difficulty breathing or other concerns. Please take Ibuprofen (Motrin/Advil) or Acetaminophen (Tylenol) for pain. These are available over the counter. You may take Ibuprofen 600 mg every 8 hours with food for pain. You may also take Acetaminophen 650 mg every 4-6 hours for pain. Do not exceed 3000 mg of Tylenol a day as this can cause liver damage. Do not drink alcohol with either of these medications. I would also like you to start taking a once daily allergy pill such as Anamaria Claritin or Zyrtec in addition to intranasal Flonase to help with any allergy like symptoms. Please follow up with your primary care doctor within the next 2-3 days for ER follow-up. (If you do not have a PCP you can call [phone]. ?to schedule an appointment with an [facility] Primary Care Provider) IF YOU DEVELOP ANY NEW OR WORSENING SYMPTOMS, RETURN TO THE ER! Please read the attached instructions, they highlight more specific treatments and interventions for you at home. Thank you for letting me participate in your care, Quyen Tyler PA-C Prescriptions: No Action nitrofurantoin monohyd/m-cryst [Macrobid] 100 mg capsule 100 mg PO BID Qty: 14 0RF Rx Instructions: must administer with a meal/food albuterol sulfate 90 mcg/actuation HFA aerosol inhaler 2 puff INHALATION Q4-6H PRN (Reason: shortness of breath or wheezing) Qty: 8.5 0RF albuterol sulfate 90 mcg/actuation aerosol powdr breath activated 2 inh inhalation Q4-6H PRN (Reason: shortness of breath or wheezing) Qty: 1 0RF meclizine 12.5 mg tablet 12.5 mg PO TID PRN (Reason: dizziness) Qty: 20 0RF diltiazem HCl 30 mg tablet 30 mg PO TID Qty: 20 0RF ondansetron HCl [Zofran] 4 mg tablet 4 mg PO Q6-8H Qty: 7 0RF omeprazole 20 mg capsule,delayed release(DR/EC) 20 mg PO BID Qty: 60 0RF sucralfate [Carafate] 1 gram tablet 1 g PO TID PRN (Reason: heart burn) Qty: 60 0RF diltiazem HCl 30 mg tablet 30 mg PO TID Qty: 90 0RF Referrals: Claudia Bonner PA-C [Primary Care Provider] - Stand Alone Forms: Patient Portal/API/Survey ED Sign-out <Brenda Jiménez DO - Last Filed: 02/07/25 01:33> Cosign ED Attending Bassam Attestation: I was immediately available in the department for consultation.
--- NOTE | 2025-02-04 14:16 | PC.NURSE ---
Pt reports productive cough x2 weeks. States she has been coughing up bright yellow phlegm. Pt states she has developed pain that has radiated around her rib cage. Pt states she has had some nausea. No vomiting. No fevers. . breath sounds clear posteriorly.
--- NOTE | 2025-02-04 14:18 | DI.RAD.S_ITS ---
PROCEDURE: XR CHEST 2V INDICATIONS: productive cough x 1month concern for pneumonia TECHNIQUE: 2 views of the chest were acquired. COMPARISON: [facility], CR, XR CHEST 1V, 09/24/2024, 19:18. [facility], CR, XR CHEST 2V, 09/02/2024, 12:45. FINDINGS: Surgical changes and devices: None. Lungs and pleura: Lungs are clear. No pleural effusions or pneumothorax. Mediastinum: Mediastinal contours are normal. Heart size is normal. Bones and chest wall: No suspicious bony abnormalities. Soft tissues appear unremarkable. IMPRESSION: No acute cardiopulmonary abnormality is seen. Dictated by: Sissy Laws M.D. on 02/04/2025 at 14:02 Approved by: Sissy Laws M.D. on 02/04/2025 at 14:02
[2025-02-04 15:03] LABS: Influenza A - CEPHEID Flu A NEGATIVE (NEGATIVE); Influenza B - CEPHEID Flu B NEGATIVE (NEGATIVE); Respiratory Syncytial Virus Negative (Negative)
[2025-02-04 15:05] LABS: COVID-19 CEPHEID 4-PLEX PCR Negative (Negative)
[2025-02-04 15:47] VITALS: BP 166/99; PULSE 77; RESP 16; O2SAT 98
== END 2025-02-04 15:48 | disposition home or self-care (01) ==
PROVIDERS: Emergency Provider Physician Assistant; PCP Physician Assistant
DX: R05.9 Cough, unspecified (principal); R07.89 Other chest pain; I47.11 Inappropriate sinus tachycardia, so stated; Z87.891 Personal history of nicotine dependence
CPT/HCPCS: 87635; 87400; 87420; 0241U; 71046; 93005; 99281; 99283; 99284

== ENCOUNTER 2025-02-15 15:14 | Emergency (ER) | payer OTHER, SELFPAY ==
[2025-02-15 15:17] VITALS: BP 172/99; PULSE 104; RESP 20; TEMP 37.3; O2SAT 98; BMI 48.2
--- NOTE | 2025-02-15 15:32 | EKG_ITS ---
[address] [address] [address] [address] Test Date: 2025-02-15 Pat Name: Janneth Tang Department: Room: Gender: Female Childcare Director: ELIAS : 2000 Requested By: Order Number: [id number] Reading MD: Bay Jack MD Measurements Intervals [place] Rate: 93 P: 43 WV: 138 QRS: 24 QRSD: 82 T: 16 QT: 346 QTc: 430 Interpretive Statements Normal sinus rhythm Electronically Signed On 02-16-2025 7:28:48 PDT by Bay Jack MD
[2025-02-15 15:36] VITALS: BP 158/104; PULSE 97; O2SAT 97
[2025-02-15 16:00] VITALS: BP 143/93; PULSE 77; O2SAT 97
[2025-02-15 16:30] VITALS: BP 139/85; PULSE 80; O2SAT 99
[2025-02-15 17:00] VITALS: BP 143/97; PULSE 74; O2SAT 99
--- NOTE | 2025-02-15 17:10 | ED_ITS ---
HPI - General Adult General Chief complaint: Hypertension Stated complaint: feeling lightheaded, ears are burning hx high BP Time Seen by Provider: 02/15/25 17:00 Source: patient Mode of arrival: Ambulatory History of Present Illness HPI narrative: Patient here for sinus pressure frontal and maxillary. Has had cough cold congestion as well as for the past 1 month. Patient recently seen here at the walk-in clinic and had negative respiratory panel and chest x-ray. Today she felt very warm to the head. No headache. No syncope. She was dizzy though. Denies does not want a test. Blood pressure and temperature noted on arrived it has improved without intervention. She does feel warm to touch. No respiratory distress. Related Data Previous Rx's Medication Instructions Recorded ondansetron HCl 4 mg tablet 4 mg PO Q6-8H nausea #7 tabs 08/31/21 (Zofran) nitrofurantoin 100 mg PO BID #14 caps 11/19/21 monohydrate/macrocrystals 100 mg capsule (Macrobid) albuterol sulfate 90 mcg/actuation 2 puff inhalation Q4-6H PRN 04/13/22 aerosol inhaler shortness of breath or wheezing #8.5 grams albuterol sulfate 90 mcg/actuation 2 inh inhalation Q4-6H PRN 05/16/22 breath activated powder inhaler shortness of breath or wheezing #1 ea omeprazole 20 mg capsule,delayed 20 mg PO BID #60 caps 10/29/22 release sucralfate 1 gram tablet (Carafate) 1 g PO TID PRN heart burn #60 tabs 10/29/22 meclizine 12.5 mg tablet 12.5 mg PO TID PRN dizziness #20 03/18/23 tabs diltiazem HCl 30 mg tablet 30 mg PO TID #20 tabs 09/02/24 diltiazem HCl 30 mg tablet 30 mg PO TID #90 tabs 09/25/24 doxycycline monohydrate 100 mg 100 mg PO BID #14 caps 02/15/25 capsule Allergies Allergy/AdvReac Type Severity Reaction Status Date / Time Penicillins [PENICILLINS] Allergy Unknown Anaphylaxis Verified 02/04/25 13:36 Review of Systems Review of Systems Narrative: GENERAL: Negative chills, fatigue, malaise, fever, sweats. HEENT: Positive sinus pain, negative ear pain, sore throat RESPIRATORY: Negative dyspnea, cough CARDIOVASCULAR: Negative chest pain, palpitations GASTROINTESTINAL: Negative vomiting, nausea, abdominal pain : Negative dysuria, frequency, hematuria MUSCULOSKELETAL: Negative muscle or bony pain SKIN: Negative rash, skin lesions NEUROLOGIC: Negative weakness, numbness, positive dizziness ROS Unobtainable: All systems reviewed & are unremarkable except as noted in HPI and below Patient History Medical History (Updated 02/15/25 @ 17:16 by Chris Wheeler MD) Nephrolithiasis Healthy adolescent Surgical History No history of previous surgery Social History Smoking Status: Former smoker Smoking Status: Former smoker tobacco type: cigarettes and vaping alcohol intake frequency: holidays/special occasions only Exam Narrative Exam Narrative: GENERAL: in no distress, not toxic not dyspneic HEAD: Normocephalic. EYES: Pupils equal round ENT: Mucous membranes moist. Reproducible mild frontal and maxillary tenderness NECK: Trachea midline. CARDIOVASCULAR: Regular rate and rhythm RESPIRATORY: Clear to auscultation. Breath sounds equal bilaterally. No wheezes, rales, or rhonchi. GASTROINTESTINAL: Abdomen soft, non-tender EXTREMITIES: No gross deformities. NEURO: AOx4. Clear speech SKIN: Warm and dry PSYCH: Not anxious, is cooperative Initial Vital Signs Initial Vital Signs: Vital Signs Temperature 99.1 F 02/15/25 15:17 Pulse Rate 104 H 02/15/25 15:17 Respiratory Rate 20 02/15/25 15:17 Blood Pressure 172/99 H 02/15/25 15:17 Pulse Oximetry 98 02/15/25 15:17 Oxygen Delivery Method Room Air 02/15/25 15:17 Course Orders Ordered: ED Orders 02/15/25 15:27 EKG-12 Lead Stat Vital Signs Vital signs: Vital Signs - 8 hr 02/15/25 15:17 02/15/25 15:36 02/15/25 16:00 Temperature 99.1 F Pulse Rate 104 H 97 H 77 Respiratory Rate 20 Blood Pressure 172/99 H 158/104 H Pulse Oximetry 98 97 97 Oxygen Delivery Method Room Air 02/15/25 16:00 02/15/25 16:30 02/15/25 16:30 Temperature Pulse Rate 80 Respiratory Rate Blood Pressure 143/93 H 139/85 Pulse Oximetry 99 Oxygen Delivery Method Medical Decision Making Lab Data Labs: Point of Care Testing Test Results Negative Point of care testing: Point of Care Testing Test Results Negative [facility] Narrative Medical decision making narrative: Patient here for sinus pressure frontal and maxillary. Has had cough cold congestion as well as for the past 1 month. Patient recently seen here at the walk-in clinic and had negative respiratory panel and chest x-ray. Today she felt very warm head. No headache. No syncope. She was dizzy though. Denies does not want a test. Blood pressure and temperature noted on arrived it has improved without intervention. She does feel warm to touch. No respiratory distress. After history and exam, EKG, no laboratory studies indicated at this time. Doxy cycline will be ordered for the sinusitis as patient has been enduring for over 4 weeks of symptoms. She agrees with this. She does have history of tachycardia and is on Cardizem for rate control. She has anaphylaxis to penicillin. [facility] Medical records reviewed: February 04, 2025 ER visit here. Differential considered: Includes but not limited to sinusitis viral syndrome pneumonia hypertensive urgency Independently reviewed EKG normal sinus rhythm normal EKG rate 93 Treatments: Patient does not want antibiotic given here. She desires a prescription Re-evaluations: Reviewed results of exam with patient. She agrees to start doxycycline. It has been 4 weeks with her symptoms. Return precautions reviewed. Blood pressure improved without intervention. She desires discharge home. Discussion: Appropriate for discharge home. Antibiotics have been started as symptoms have been going on for more than 4 weeks. She agrees with treatment plan. Return precautions reviewed. She desires discharge home. Diagnosis: Acute sinusitis Discharge Plan Departure Patient Disposition: Home Clinical Impression: Acute sinusitis Qualifiers: Sinusitis location: frontal Recurrence: non-recurrent Qualified Code(s): J01.10 - Acute frontal sinusitis, unspecified Instructions: DI for Sinusitis Activity Restrictions/Additional Instructions: Please see your family doctor this week for re-evaluation. Antibiotics have been sent to your pharmacy to [facility]. Keep well hydrated. Return if worse if any questions or concerns. Continue home medications. Be sure to have your blood pressure rechecked with your family doctor. Please call provided primary care provider phone number to obtain family doctor, Prescriptions: New doxycycline monohydrate 100 mg capsule 100 mg PO BID Qty: 14 0RF No Action nitrofurantoin monohyd/m-cryst [Macrobid] 100 mg capsule 100 mg PO BID Qty: 14 0RF Rx Instructions: must administer with a meal/food albuterol sulfate 90 mcg/actuation HFA aerosol inhaler 2 puff INHALATION Q4-6H PRN (Reason: shortness of breath or wheezing) Qty: 8.5 0RF albuterol sulfate 90 mcg/actuation aerosol powdr breath activated 2 inh inhalation Q4-6H PRN (Reason: shortness of breath or wheezing) Qty: 1 0RF meclizine 12.5 mg tablet 12.5 mg PO TID PRN (Reason: dizziness) Qty: 20 0RF diltiazem HCl 30 mg tablet 30 mg PO TID Qty: 20 0RF ondansetron HCl [Zofran] 4 mg tablet 4 mg PO Q6-8H Qty: 7 0RF omeprazole 20 mg capsule,delayed release(DR/EC) 20 mg PO BID Qty: 60 0RF sucralfate [Carafate] 1 gram tablet 1 g PO TID PRN (Reason: heart burn) Qty: 60 0RF diltiazem HCl 30 mg tablet 30 mg PO TID Qty: 90 0RF Referrals: Claudia Bonner PA-C [Primary Care Provider] - Stand Alone Forms: Patient Portal/API/Survey
== END 2025-02-15 17:21 | disposition home or self-care (01) ==
PROVIDERS: Emergency Provider Emergency Medicine; PCP Physician Assistant
DX: J01.10 Acute frontal sinusitis, unspecified (principal); R07.9 Chest pain, unspecified; I10 Essential (primary) hypertension
CPT/HCPCS: 81025; 93005; 99282; 99283

== ENCOUNTER 2025-03-04 17:56 | Emergency (ER) | payer OTHER, SELFPAY ==
[2025-03-04 18:00] VITALS: BP 162/100; PULSE 97; RESP 18; TEMP 37.1; O2SAT 99; BMI 48.2
--- NOTE | 2025-03-04 18:50 | ED_ITS ---
HPI - Back Pain/Injury <Maria Isabel Navarrete PA-C - Last Filed: 03/04/25 19:02> General Chief Complaint: Back Pain/Injury Stated Complaint: Back Pain Time Seen by Provider: 03/04/25 18:22 Source: patient History of Present Illness HPI Narrative: This is a 25-year-old obese woman with history of chronic intermittent low back pain and previous tailbone injury in 2019 presenting with concern for low back pain since December that worsened this morning. Patient states that she is not very active given her condition of inappropriate sinus tachycardia for which he takes diltiazem. Yesterday she was more active than usual she was not doing any heavy lifting but she said she simply move around more and was a lot more physically active than her typical day this morning when she woke up she felt a pinching sensation in her right low back/buttock and tightness in her back that has been worse than the pain she has been dealing with since December. In December she states she did not have any new specific injury she simply noticed that her chronic intermittent back pain was flaring up. She has been following with her PCP for this pain, she has not taken anything including Tylenol and ibuprofen today to treat it she did try some icy hot she says she thinks this might have made it worse. She states that she already has a referral to Orthopedics but there is work being done to try to reopen an L and I claim from her previous injury in 2019 and she is unsure if that orthopedic provider will see her. She is interested in physical therapy and her PCP is also working on this. She denies any urinary symptoms, numbness or tingling of extremities, change in bowel or bladder function, saddle paresthesia, fevers chills or other symptoms. Related Data Home Medications Medication Instructions Recorded Confirmed diltiazem HCl 30 mg tablet 30 mg PO 3XD 03/04/25 03/04/25 Previous Rx's Medication Instructions Recorded ondansetron HCl 4 mg tablet 4 mg PO Q6-8H nausea #7 tabs 08/31/21 (Zofran) nitrofurantoin 100 mg PO BID #14 caps 11/19/21 monohydrate/macrocrystals 100 mg capsule (Macrobid) albuterol sulfate 90 mcg/actuation 2 puff inhalation Q4-6H PRN 05/15/22 aerosol inhaler shortness of breath or wheezing #8.5 grams albuterol sulfate 90 mcg/actuation 2 inh inhalation Q4-6H PRN 05/16/22 breath activated powder inhaler shortness of breath or wheezing #1 ea omeprazole 20 mg capsule,delayed 20 mg PO BID #60 caps 10/29/22 release sucralfate 1 gram tablet (Carafate) 1 g PO TID PRN heart burn #60 tabs 10/29/22 meclizine 12.5 mg tablet 12.5 mg PO TID PRN dizziness #20 03/18/23 tabs diltiazem HCl 30 mg tablet 30 mg PO TID #20 tabs 09/02/24 diltiazem HCl 30 mg tablet 30 mg PO TID #90 tabs 09/25/24 doxycycline monohydrate 100 mg 100 mg PO BID #14 caps 02/15/25 capsule baclofen 10 mg tablet 10 mg PO TID muscle spasm 10 days 03/04/25 #30 tabs Allergies Allergy/AdvReac Type Severity Reaction Status Date / Time Penicillins [PENICILLINS] Allergy Unknown Anaphylaxis Verified 03/04/25 18:03 Review of Systems <Maria Isabel Navarrete PA-C - Last Filed: 03/04/25 19:02> Review of Systems Narrative: See HPI Patient History <Maria Isabel Navarrete PA-C - Last Filed: 03/04/25 19:02> Medical History (Updated 03/04/25 @ 19:01 by Maria Isabel Navarrete PA-C) Nephrolithiasis Healthy adolescent Surgical History No history of previous surgery Social History Smoking Status: Former smoker Smoking Status: Former smoker tobacco type: cigarettes and vaping alcohol intake frequency: holidays/special occasions only Exam <Maria Isabel Navarrete PA-C - Last Filed: 03/04/25 19:02> Narrative Exam Narrative: GENERAL: [25] year old patient appears stated age. Morbidly obese patient, in mild distress. HEAD: Atraumatic. Normocephalic. EYES: Pupils equal round and reactive. Extraocular motions intact. No scleral icterus. No injection or drainage. ENT: Nose without bleeding, purulent drainage. Airway patent. NECK: Trachea midline. CARDIOVASCULAR: Regular rate and rhythm without murmurs, gallops, or rubs. RESPIRATORY: Clear to auscultation. Breath sounds equal bilaterally. No wheezes, rales, or rhonchi. GASTROINTESTINAL: Abdomen nondistended. EXTREMITIES: Strength is intact 4/5 with resisted flexion and extension at the hip. She has increased low back pain with resisted flexion at the hip bilaterally more pronounced on the right. No notable increase in pain with flexion and extension resisted at the knee. Dorsiflexion and plantar flexion are intact. No edema or joint tenderness. BACK: There is tenderness at the sacroiliac junction on the right. There are tight/spasming paraspinal muscles bilaterally more pronounced on the right lumbosacral region; left upper buttock also has muscle tightness. Nontender without deformity or crepitance. No flank tenderness. NEURO: AOx3. SKIN: No rash or erythema of visible areas Initial Vital Signs Initial Vital Signs: Vital Signs Temperature 98.8 F 03/04/25 18:00 Pulse Rate 97 H 03/04/25 18:00 Respiratory Rate 18 03/04/25 18:00 Blood Pressure 162/100 H 03/04/25 18:00 Pulse Oximetry 99 03/04/25 18:00 Oxygen Delivery Method Room Air 03/04/25 18:00 <Brenda Jiménez DO - Last Filed: 03/05/25 06:32> Initial Vital Signs Initial Vital Signs: Vital Signs Temperature 98.8 F 03/04/25 18:00 Pulse Rate 97 H 03/04/25 18:00 Respiratory Rate 18 03/04/25 18:00 Blood Pressure 162/100 H 03/04/25 18:00 Pulse Oximetry 99 03/04/25 18:00 Oxygen Delivery Method Room Air 03/04/25 18:00 Course <Maria Isabel Navarrete PA-C - Last Filed: 03/04/25 19:02> Vital Signs Vital signs: Vital Signs - 8 hr 03/04/25 18:00 Temperature 98.8 F Pulse Rate 97 H Respiratory Rate 18 Blood Pressure 162/100 H Pulse Oximetry 99 Oxygen Delivery Method Room Air <DO Traci Jorgensen Last Filed: 03/05/25 06:32> Vital Signs Vital signs: Vital Signs - 8 hr 03/04/25 18:00 Temperature 98.8 F Pulse Rate 97 H Respiratory Rate 18 Blood Pressure 162/100 H Pulse Oximetry 99 Oxygen Delivery Method Room Air [facility] - Back Pain/Injury <Maria Isabel Navarrete PA-C - Last Filed: 03/04/25 19:02> Differential Diagnosis Differential diagnosis: Likely lumbar radiculopathy, strain of lumbar region and other (Muscle spasm) Medical Records Attestation: I reviewed the patient's medical records. [facility] Narrative Medical decision making narrative: This is a morbidly obese 25-year-old female with history of chronic back pain and previous back injury presenting with concern for flare-up of back pain worse today that has been a problem since December. No symptoms suggestive of UTI. She does have tightness and tenderness paraspinal region and buttocks consistent with muscle spasming/muscle strain. She was more active yesterday than typical. She has been much less active since being diagnosed with a cardiac condition last fall (inappropriate tachycardia syndrome). She is on diltiazem for this. We discussed medication options. She declines Toradol shot today but is open to trying to take Tylenol and ibuprofen at home which she has not yet tried. Encouraged her to use heat which she states was slightly helpful earlier today, gentle stretching, continue work with her PCP on getting into see physical therapy. Providing her with the name of our current on-call orthopedic doctor today so she can contact their office in potentially get into be seen. She reports history of pinched nerve in the sacral region related to her previous injury in 2019. Also reports that an L and I claim related to this is being reopened by her PCP. Prescription for muscle relaxer provided today. She declines any medication in the ER today. Patient has no back pain red flag symptoms. Return precautions provided, follow-up plan discussed, all questions answered. Discharge Plan Departure Patient Disposition: Home Clinical Impression: Back muscle spasm Strain of lumbar paraspinal muscle Qualifiers: Encounter type: initial encounter Qualified Code(s): S39.012A - Strain of mus ge, fascia and tendon of lower back, initial encounter Instructions: DI for Muscle Strain, DI for Back Spasm Activity Restrictions/Additional Instructions: *You have been diagnosed with (back muscle spasm, muscle strain] *What to do: *Please continue to take your regular medications as directed. [1 ] New medication prescriptions sent to your pharmacy: [Baclofen] [ ] New medication written as a paper prescription [ ] No new medications given *Please follow up with your primary care provider in 2-3 days, call for an appointment. Let them know you were seen in the Emergency Department and that we ask that you be seen in follow up. We will electronically transmit a record of today's note if your PCP is in our system. You came in today with concern for worsening of the pain in her low back you have been dealing with since December. I think you did likely overdo it yesterday with activities. And have very tight muscles muscle strain and muscle spasming going on which is likely causing her pain. I have prescribed a muscle relaxer for you and I strongly encourage you to try Tylenol (acetaminophen) and ibuprofen for your pain. These are both safe to take with your other medications. Also would recommend heat. I know you have already been working with her PCP on your flare-up of your back pain and are trying to get into see physical therapy. I think this also would likely be very helpful. I am including information for an orthopedic provider as well you can reach out to their office to see if you can get in to be seen by them. If you develop numbness or tingling of your extremities, weakness in your legs, change in bowel or bladder function, fevers chills or other symptoms of concern or the Tylenol ibuprofen heat and muscle relaxer are doing nothing to help with your pain then I do recommend you seek re-evaluation in the ER. I hope that you feel better soon. *If you do not have a primary care provider please contact the [facility] Resource line at [phone]. They will ask some questions about your medical history and help get you set up with a doctor in the community. *Return to Emergency Department if you should have any new, worsening or concerning symptoms, such as [fever greater than 101 F, shaking chills, worsening pain, persistent vomiting or other bothersome symptoms] Prescriptions: New baclofen 10 mg tablet 10 mg PO TID 10 Days Qty: 30 0RF No Action nitrofurantoin monohyd/m-cryst [Macrobid] 100 mg capsule 100 mg PO BID Qty: 14 0RF Rx Instructions: must administer with a meal/food albuterol sulfate 90 mcg/actuation HFA aerosol inhaler 2 puff INHALATION Q4-6H PRN (Reason: shortness of breath or wheezing) Qty: 8.5 0RF albuterol sulfate 90 mcg/actuation aerosol powdr breath activated 2 inh inhalation Q4-6H PRN (Reason: shortness of breath or wheezing) Qty: 1 0RF meclizine 12.5 mg tablet 12.5 mg PO TID PRN (Reason: dizziness) Qty: 20 0RF diltiazem HCl 30 mg tablet 30 mg PO TID Qty: 20 0RF doxycycline monohydrate 100 mg capsule 100 mg PO BID Qty: 14 0RF ondansetron HCl [Zofran] 4 mg tablet 4 mg PO Q6-8H Qty: 7 0RF omeprazole 20 mg capsule,delayed release(DR/EC) 20 mg PO BID Qty: 60 0RF sucralfate [Carafate] 1 gram tablet 1 g PO TID PRN (Reason: heart burn) Qty: 60 0RF diltiazem HCl 30 mg tablet 30 mg PO TID Qty: 90 0RF diltiazem HCl 30 mg tablet 30 mg PO 3XD Referrals: Reyna Prather MD [Physician] - (Acute on chronic right low back pain previous injury) Claudia Bonner PA-C [Primary Care Provider] - Stand Alone Forms: Patient Portal/API/Survey ED Sign-out <Brenda Jiménez DO - Last Filed: 03/05/25 06:32> Cosign ED Attending Bassam Attestation: I was immediately available in the department for consultation.
== END 2025-03-04 19:13 | disposition home or self-care (01) ==
PROVIDERS: Emergency Provider Student in an Organized Health Care Education/Training Program; PCP Physician Assistant
DX: S39.012A Strain of muscle, fascia and tendon of lower back, initial encounter (principal); M62.830 Muscle spasm of back
CPT/HCPCS: 99281

== ENCOUNTER 2025-04-17 16:52 | Emergency (ER) | payer OTHER, SELFPAY ==
[2025-04-17 17:07] VITALS: BP 171/103; PULSE 82; RESP 19; TEMP 36.6; O2SAT 99; BMI 48.2
== END 2025-04-17 19:56 | disposition left against medical advice (07) ==
PROVIDERS: Emergency Provider Emergency Medicine; PCP Physician Assistant
CPT/HCPCS: 99281

== ENCOUNTER 2025-06-15 12:02 | Emergency (ER) | payer OTHER, SELFPAY ==
[2025-06-15 12:46] VITALS: BP 160/104; PULSE 93; RESP 14; TEMP 37.2; O2SAT 97; BMI 48.2
== END 2025-06-15 13:54 | disposition left against medical advice (07) ==
PROVIDERS: Emergency Provider Emergency Medicine; PCP Physician Assistant
CPT/HCPCS: 99281

== ENCOUNTER 2025-06-20 10:02 | Emergency (ER) | payer OTHER, SELFPAY ==
[2025-06-20 10:10] VITALS: BP 178/105; PULSE 97; RESP 14; TEMP 36.8; O2SAT 95; BMI 49.8
[2025-06-20 10:11] VITALS: PULSE 104; O2SAT 98
[2025-06-20 10:12] VITALS: BP 178/105; PULSE 98; O2SAT 98
[2025-06-20 10:51] VITALS: BP 166/97; PULSE 89; O2SAT 98
--- NOTE | 2025-06-20 10:56 | PC.NURSE ---
Pt states she saw her PCP on Thursday and they recommended head/neck CT due to R-arm tingling/numbness x several weeks
[2025-06-20 11:00] VITALS: BP 156/87; PULSE 85; O2SAT 98
--- NOTE | 2025-06-20 11:16 | ED.HA ---
HPI - Headache <Leonie Edwards PA-C - Last Filed: 06/20/25 16:29> General Chief Complaint: Headache Stated Complaint: right arm neck and head pain, numbness Time Seen by Provider: 06/20/25 10:12 Mode of arrival: Ambulatory History of Present Illness HPI Narrative: 25-year-old female with past medical history migraines presents to the ED with a right-sided headache, neck pain which radiates down the right arm. No fever, chills, chest pain, shortness of breath, nausea, vomiting, lightheadedness, dizziness, syncope. Patient has a prior history of migraines. Patient also has a history of neck pain. No trauma. No numbness,tingling, weakness. Related Data Home Medications ?Medication ?Instructions ?Recorded ?Confirmed diltiazem HCl 30 mg tablet 30 mg PO 3XD 03/04/25 03/04/25 Previous Rx's ?Medication ?Instructions ?Recorded ondansetron HCl 4 mg tablet 4 mg PO Q6-8H nausea #7 tabs 08/31/21 (Zofran) nitrofurantoin 100 mg PO BID #14 caps 11/19/21 monohydrate/macrocrystals 100 mg capsule (Macrobid) albuterol sulfate 90 mcg/actuation 2 puff inhalation Q4-6H PRN 04/13/22 aerosol inhaler shortness of breath or wheezing #8.5 grams albuterol sulfate 90 mcg/actuation 2 inh inhalation Q4-6H PRN 05/16/22 breath activated powder inhaler shortness of breath or wheezing #1 ea omeprazole 20 mg capsule,delayed 20 mg PO BID #60 caps 10/29/22 release sucralfate 1 gram tablet (Carafate) 1 g PO TID PRN heart burn #60 tabs 10/29/22 meclizine 12.5 mg tablet 12.5 mg PO TID PRN dizziness #20 03/18/23 tabs diltiazem HCl 30 mg tablet 30 mg PO TID #20 tabs 09/02/24 diltiazem HCl 30 mg tablet 30 mg PO TID #90 tabs 09/25/24 doxycycline monohydrate 100 mg 100 mg PO BID #14 caps 02/15/25 capsule Allergies Allergy/AdvReac Type Severity Reaction Status Date / Time Penicillins (PENICILLINS) Allergy Unknown Anaphylaxis Verified 06/20/25 10:16 Review of Systems <Leonie Edwards PA-C - Last Filed: 06/20/25 16:29> Constitutional Constitutional: Denies chills, Denies fatigue, Denies fever(s), Denies frequent falls, Reports headache(s), Denies lethargy and Denies weakness Eyes Eyes: Denies change in vision, Denies eye discharge, Denies irritation and Denies loss of vision ENT Ears, Nose, Mouth, and Throat: Denies change in voice, Denies dizziness, Reports headache(s), Reports neck pain, Denies sore throat and Denies throat swelling Cardiovascular Cardiovascular: Denies chest pain, Denies irregular heart rhythm, Denies lightheadedness, Denies palpitations, Denies dyspnea, Denies dyspnea on exertion and Denies orthopnea Respiratory Respiratory: Denies cough, Denies dyspnea, Denies dyspnea on exertion and Denies wheezing Gastrointestinal Gastrointestinal: Denies abdominal pain, Denies change in bowel habits, Denies diarrhea, Denies nausea and Denies vomiting Musculoskeletal Musculoskeletal: Reports neck pain, Denies numbness and Reports radiating pain into limb (Right arm) Integumentary/Breasts Skin/Breast: Denies pruritus, Denies erythema, Denies rash and Denies wounds Neurologic Neurologic: Denies behavioral changes, Denies confusion, Denies dizziness, Denies frequent falls, Reports headache(s), Denies loss of vision, Denies numbness and Denies weakness Psychiatric Psychiatric: Denies anxiety, Denies behavioral changes, Denies confusion, Denies depression, Denies homicidal ideation and Denies suicidal ideation Endocrine Endocrine: Denies fatigue, Denies flushing and Denies palpitations Hematologic/Lymphatic Hematologic/Lymphatic: Denies easy bruising Allergic/Immunologic Allergic/Immunologic: Denies urticaria, Denies throat swelling and Denies wheezing Patient History <Leonie Edwards PA-C - Last Filed: 06/20/25 16:29> Medical History (Updated 06/20/25 @ 11:35 by Leonie Edwards PA-C) Nephrolithiasis Healthy adolescent Surgical History No history of previous surgery tobacco type: cigarettes and vaping alcohol intake frequency: holidays/special occasions only Exam <Leonie Edwards PA-C - Last Filed: 06/20/25 16:29> Narrative Exam Narrative: Const General:?cooperative, healthy appearing and comfortable [facility] Head:?normal to inspection Ears:?hearing grossly normal bilaterally Nose:?external nose normal Face and sinus:?normal facial exam and sinuses nontender Mouth:?oral mucosae normal Throat:?posterior oropharynx normal Eyes General:?appearance normal, both eyes and all related structures Neck Neck:?normal visual inspection and no lymphadenopathy noted Resp Effort & Inspection:?normal respiratory effort Auscultation:?clear to auscultation bilaterally Cardio Rate:?regular rate Rhythm:?regular rhythm Musculoskeletal No midline tenderness to palpation. There is some right-sided muscular tenderness on the right side of the neck. Full range of motion. Strength and sensation intact. Neurovascularly intact. Neuro General:?patient alert, patient awake and patient oriented x3; PERRLA; gait normal; CN 2-12 intact bilaterally Initial Vital Signs Initial Vital Signs: Vital Signs Temperature 98.2 F 06/20/25 10:10 Pulse Rate 97 H 06/20/25 10:10 Respiratory Rate 14 06/20/25 10:10 Blood Pressure 178/105 H 06/20/25 10:10 Pulse Oximetry 95 06/20/25 10:10 Oxygen Delivery Method Room Air 06/20/25 10:10 <Yifan Jacobsen MD - Last Filed: 06/20/25 19:09> Initial Vital Signs Initial Vital Signs: Vital Signs Temperature 98.2 F 06/20/25 10:10 Pulse Rate 97 H 06/20/25 10:10 Respiratory Rate 14 06/20/25 10:10 Blood Pressure 178/105 H 06/20/25 10:10 Pulse Oximetry 95 06/20/25 10:10 Oxygen Delivery Method Room Air 06/20/25 10:10 Course <Leonie Edwards PA-C - Last Filed: 06/20/25 16:29> Vital Signs Vital signs: Vital Signs - 8 hr 06/20/25 11:44 Respiratory Rate 18 Oxygen Delivery Method Room Air <Yifan Jacobsen MD - Last Filed: 06/20/25 19:09> Vital Signs Vital signs: Vital Signs - 8 hr 06/20/25 11:44 Respiratory Rate 18 Oxygen Delivery Method Room Air MDM - Headache <Leonie Edwards PA-C - Last Filed: 06/20/25 16:29> [facility] Narrative Medical decision making narrative: 25-year-old female with past medical history migraines presents to the ED with a right-sided headache, neck pain which radiates down the right arm. Given history and physical exam, it is reassuring to note that patient is neurologically intact. Patient's symptoms are most consistent with a migraine versus neck pain with radiculopathy radiating to the right arm. It is reassuring to note that there was no trauma. No additional imaging indicated at this time. Patient was offered medications to treat the headache, however she prefers to go home and take the medications. Recommend that patient take Tylenol and ibuprofen. Recommend follow-up with PCP and neurologist for further evaluation. ED return precautions were discussed with patient. Patient verbalized understanding. Medical records reviewed: Yes <Yifan Jacobsen MD - Last Filed: 06/20/25 19:09> [facility] Narrative Medical decision making narrative: 25-year-old female with past medical history migraines presents to the ED with a right-sided headache, neck pain which radiates down the right arm. Given history and physical exam, it is reassuring to note that patient is neurologically intact. Patient's symptoms are most consistent with a migraine versus neck pain with radiculopathy radiating to the right arm. It is reassuring to note that there was no trauma. No additional imaging indicated at this time. Patient was offered medications to treat the headache, however she prefers to go home and take the medications. Recommend that patient take Tylenol and ibuprofen. Recommend follow-up with PCP and neurologist for further evaluation. ED return precautions were discussed with patient. Patient verbalized understanding. Medical records reviewed: Yes I was available for consult but did not actually see the patient. Discharge Plan Departure Patient Disposition: Home Clinical Impression: Neck pain Headache Qualifiers: Headache type: unspecified Headache chronicity pattern: unspecified pattern Intractability: not intractable Qualified Code(s): R51.9 - Headache, unspecified Instructions: DI for Headache Activity Restrictions/Additional Instructions: You were evaluated in the emergency department today for a headache and neck pain. Your physical exam is reassuring. It appears that your symptoms are due to a migraine and neck pain which is radiating down into your arm. It is recommended that you take 800 mg of ibuprofen every 8 hours with food. You may also take 1000 mg of Tylenol every 8 hours. You may also take the muscle relaxant that you have been prescribed at the walk-in clinic. Please follow-up with your primary care doctor and neurologist for further evaluation and treatment. Return to the ED if you have worsening symptoms, persistent vomiting. Prescriptions: No Action nitrofurantoin monohyd/m-cryst [Macrobid] 100 mg capsule 100 mg PO BID Qty: 14 0RF Rx Instructions: must administer with a meal/food albuterol sulfate 90 mcg/actuation HFA aerosol inhaler 2 puff INHALATION Q4-6H PRN (Reason: shortness of breath or wheezing) Qty: 8.5 0RF albuterol sulfate 90 mcg/actuation aerosol powdr breath activated 2 inh inhalation Q4-6H PRN (Reason: shortness of breath or wheezing) Qty: 1 0RF meclizine 12.5 mg tablet 12.5 mg PO TID PRN (Reason: dizziness) Qty: 20 0RF diltiazem HCl 30 mg tablet 30 mg PO TID Qty: 20 0RF doxycycline monohydrate 100 mg capsule 100 mg PO BID Qty: 14 0RF ondansetron HCl [Zofran] 4 mg tablet 4 mg PO Q6-8H Qty: 7 0RF omeprazole 20 mg capsule,delayed release(DR/EC) 20 mg PO BID Qty: 60 0RF sucralfate [Carafate] 1 gram tablet 1 g PO TID PRN (Reason: heart burn) Qty: 60 0RF diltiazem HCl 30 mg tablet 30 mg PO TID Qty: 90 0RF diltiazem HCl 30 mg tablet 30 mg PO 3XD Referrals: Claudia Bonner PA-C [Primary Care Provider, Medical] Stand Alone Forms: Patient Portal/API
[2025-06-20 11:44] VITALS: RESP 18
== END 2025-06-20 11:45 | disposition home or self-care (01) ==
PROVIDERS: Emergency Provider Student in an Organized Health Care Education/Training Program; PCP Physician Assistant
DX: M54.2 Cervicalgia (principal); R51.9 Headache, unspecified
CPT/HCPCS: 99281

== ENCOUNTER 2025-06-27 17:45 | Emergency (ER) | payer OTHER, SELFPAY ==
[2025-06-27 17:54] VITALS: BP 189/109; PULSE 98; RESP 16; TEMP 37.2; O2SAT 99; BMI 49.8
--- NOTE | 2025-06-27 18:06 | EKG_ITS ---
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
[2025-06-27 19:46] VITALS: PULSE 78; RESP 22
[2025-06-27 19:48] VITALS: BP 166/99; PULSE 86
[2025-06-27 20:00] VITALS: PULSE 86; RESP 18
[2025-06-27 20:30] VITALS: PULSE 84; O2SAT 99
[2025-06-27 20:50] LABS: Troponin I < 0.012 ng/mL (0.01-0.034)
[2025-06-27 21:00] VITALS: PULSE 86; RESP 17; O2SAT 99
--- NOTE | 2025-06-27 21:04 | ED.CHESTPAIN ---
HPI - Chest Pain General Chief Complaint: Chest Pain Stated Complaint: head,neck,Rt arm pain, left side face pain,SOB Time Seen by Provider: 06/27/25 20:22 Source: patient Mode of arrival: Family Vehicle Limitations: no limitations History of Present Illness HPI narrative: 25-year-old female patient with a history of supraventricular tachycardia managed with diltiazem and also stress and anxiety who has had intermittent chest discomfort for about a week which is sharp pains in the left and right lower chest with radiation to the left jaw in the right arm. She went to the dentist and had no problems or diagnoses of cavities. She was advised to come to the ER to rule out cardiac cause of her chest symptoms. Currently has minimal chest pain with no shortness of breath, no nausea or diaphoresis. Admits to stress and anxiety. Related Data Home Medications ?Medication ?Instructions ?Recorded ?Confirmed diltiazem HCl 30 mg tablet 30 mg PO 3XD 03/04/25 03/04/25 Previous Rx's ?Medication ?Instructions ?Recorded ondansetron HCl 4 mg tablet 4 mg PO Q6-8H nausea #7 tabs 08/31/21 (Zofran) nitrofurantoin 100 mg PO BID #14 caps 11/19/21 monohydrate/macrocrystals 100 mg capsule (Macrobid) albuterol sulfate 90 mcg/actuation 2 puff inhalation Q4-6H PRN 04/13/22 aerosol inhaler shortness of breath or wheezing #8.5 grams albuterol sulfate 90 mcg/actuation 2 inh inhalation Q4-6H PRN 05/16/22 breath activated powder inhaler shortness of breath or wheezing #1 ea omeprazole 20 mg capsule,delayed 20 mg PO BID #60 caps 10/29/22 release sucralfate 1 gram tablet (Carafate) 1 g PO TID PRN heart burn #60 tabs 10/29/22 meclizine 12.5 mg tablet 12.5 mg PO TID PRN dizziness #20 03/18/23 tabs diltiazem HCl 30 mg tablet 30 mg PO TID #20 tabs 09/02/24 diltiazem HCl 30 mg tablet 30 mg PO TID #90 tabs 09/25/24 doxycycline monohydrate 100 mg 100 mg PO BID #14 caps 02/15/25 capsule Allergies Allergy/AdvReac Type Severity Reaction Status Date / Time Penicillins (PENICILLINS) Allergy Unknown Anaphylaxis Verified 06/27/25 17:54 Review of Systems Review of Systems ROS Unobtainable: All systems reviewed & are unremarkable except as noted in HPI and below Cardiovascular Cardiovascular: Reports as per HPI Respiratory Respiratory: Reports as per HPI Patient History Medical History (Updated 06/27/25 @ 21:03 by Yifan Jacobsen MD) Nephrolithiasis Healthy adolescent Surgical History No history of previous surgery tobacco type: cigarettes and vaping alcohol intake frequency: holidays/special occasions only Exam Initial Vital Signs Initial Vital Signs: Vital Signs Temperature 99.0 F 06/27/25 17:54 Pulse Rate 98 H 06/27/25 17:54 Respiratory Rate 16 06/27/25 17:54 Blood Pressure 189/109 H 06/27/25 17:54 Pulse Oximetry 99 06/27/25 17:54 Oxygen Delivery Method Room Air 06/27/25 17:54 Const General: cooperative, healthy appearing, comfortable and well developed HENMT Head: normal to inspection Neck Neck: normal visual inspection Chest Chest: normal inspection of the chest Resp Effort & Inspection: normal respiratory effort Auscultation: clear to auscultation bilaterally Cardio Rate: regular rate Rhythm: regular rhythm GI Inspection: normal to inspection and non-distended Palpation: soft, No guarding and No tender Course Orders Ordered: ED Orders 06/27/25 18:01 EKG-12 Lead Stat 06/27/25 20:19 Troponin I Stat Vital Signs Vital signs: Vital Signs - 8 hr 06/27/25 17:54 06/27/25 19:46 06/27/25 19:48 Temperature 99.0 F Pulse Rate 98 H 78 86 Respiratory Rate 16 22 Blood Pressure 189/109 H Pulse Oximetry 99 Oxygen Delivery Method Room Air 06/27/25 19:48 06/27/25 20:00 06/27/25 20:30 Temperature Pulse Rate 86 84 Respiratory Rate 18 Blood Pressure 166/99 H Pulse Oximetry 99 Oxygen Delivery Method MDM - Chest Pain Medical Records Data Attestation: I reviewed the patient's medical records. Lab Data Attestation: I reviewed the patient's lab results. Lab results narrative: Negative troponin Labs: Lab Results 07/29/25 Range/Units 20:19 Troponin I < 0.012 (0.01-0.034) ng/mL ECG Data Attestation: I personally reviewed and interpreted this ECG as follows: (Sinus rhythm with sinus arrhythmia. Otherwise normal intervals and axis. No ischemic changes. Rate 95) MDM Narrative Medical decision making narrative: Patient's has atypical chest pain and no risk factors for ischemic cardiac disease. She does have stress and anxiety. That is the likely cause of her chest symptoms. Her troponin and EKG are normal and reassuring. I do not believe she needed to troponin level since she has had the same symptoms for several days to week. Currently stable at discharge and she will follow up with primary care to address the symptoms. Discharge Plan Departure Patient Disposition: Home Clinical Impression: Non-cardiac chest pain, Anxiety Instructions: DI for Atypical Chest Pain Activity Restrictions/Additional Instructions: Plan: Stress and anxiety reduction and monitor symptoms. This does not appear to be cardiac. Follow up with your doctor for further management. Return to the ER if worse Prescriptions: No Action nitrofurantoin monohyd/m-cryst [Macrobid] 100 mg capsule 100 mg PO BID Qty: 14 0RF Rx Instructions: must administer with a meal/food albuterol sulfate 90 mcg/actuation HFA aerosol inhaler 2 puff INHALATION Q4-6H PRN (Reason: shortness of breath or wheezing) Qty: 8.5 0RF albuterol sulfate 90 mcg/actuation aerosol powdr breath activated 2 inh inhalation Q4-6H PRN (Reason: shortness of breath or wheezing) Qty: 1 0RF meclizine 12.5 mg tablet 12.5 mg PO TID PRN (Reason: dizziness) Qty: 20 0RF diltiazem HCl 30 mg tablet 30 mg PO TID Qty: 20 0RF doxycycline monohydrate 100 mg capsule 100 mg PO BID Qty: 14 0RF ondansetron HCl [Zofran] 4 mg tablet 4 mg PO Q6-8H Qty: 7 0RF omeprazole 20 mg capsule,delayed release(DR/EC) 20 mg PO BID Qty: 60 0RF sucralfate [Carafate] 1 gram tablet 1 g PO TID PRN (Reason: heart burn) Qty: 60 0RF diltiazem HCl 30 mg tablet 30 mg PO TID Qty: 90 0RF diltiazem HCl 30 mg tablet 30 mg PO 3XD Referrals: Claudia Bonner PA-C [Primary Care Provider, Medical] Stand Alone Forms: Patient Portal/API
== END 2025-06-27 21:27 | disposition home or self-care (01) ==
PROVIDERS: Emergency Provider Emergency Medicine; PCP Physician Assistant
DX: R07.89 Other chest pain (principal); F41.9 Anxiety disorder, unspecified
CPT/HCPCS: 36415; 84484; 93005; 99283; 99284

== ENCOUNTER 2025-09-05 07:58 | Emergency (ER) | payer OTHER, SELFPAY ==
[2025-09-05 08:08] VITALS: BP 170/101; PULSE 98; RESP 16; TEMP 36.6; O2SAT 100; BMI 50.4
[2025-09-05 08:11] VITALS: PULSE 99; O2SAT 98
[2025-09-05 08:30] VITALS: PULSE 95; O2SAT 97
[2025-09-05 09:00] VITALS: PULSE 93; O2SAT 97
[2025-09-05 09:02] LABS: Influenza A - CEPHEID Flu A NEGATIVE (NEGATIVE); Influenza B - CEPHEID Flu B NEGATIVE (NEGATIVE)
[2025-09-05 09:12] LABS: COVID-19 CEPHEID 4-PLEX PCR Negative (Negative)
--- NOTE | 2025-09-05 10:22 | ED.URI ---
HPI - URI/Sore Throat General Chief Complaint: Upper Respiratory Symptoms Stated Complaint: Wants swabbed to rule out Covid Time Seen by Provider: 09/05/25 08:05 Source: patient Mode of arrival: Ambulatory History of Present Illness HPI Narrative: 25-year-old female history of idiopathic intracranial hypertension, SVT presents with sinus drainage green yellow color, fever, cough, and sore throat for the past few days after going on a hike in [place] a few days ago unrelieved with [id number] meds. Nothing makes it better or worse. Other than what is stated 14 point review system is negative. Related Data Home Medications ?Medication ?Instructions ?Recorded ?Confirmed diltiazem HCl 30 mg tablet 30 mg PO 3XD 03/04/25 03/04/25 Previous Rx's ?Medication ?Instructions ?Recorded ondansetron HCl 4 mg tablet 4 mg PO Q6-8H nausea #7 tabs 08/31/21 (Zofran) nitrofurantoin 100 mg PO BID #14 caps 11/19/21 monohydrate/macrocrystals 100 mg capsule (Macrobid) albuterol sulfate 90 mcg/actuation 2 puff inhalation Q4-6H PRN 04/13/22 aerosol inhaler shortness of breath or wheezing #8.5 grams albuterol sulfate 90 mcg/actuation 2 inh inhalation Q4-6H PRN 05/16/22 breath activated powder inhaler shortness of breath or wheezing #1 ea omeprazole 20 mg capsule,delayed 20 mg PO BID #60 caps 10/29/22 release sucralfate 1 gram tablet (Carafate) 1 g PO TID PRN heart burn #60 tabs 10/29/22 meclizine 12.5 mg tablet 12.5 mg PO TID PRN dizziness #20 03/18/23 tabs diltiazem HCl 30 mg tablet 30 mg PO TID #20 tabs 09/02/24 diltiazem HCl 30 mg tablet 30 mg PO TID #90 tabs 09/25/24 doxycycline monohydrate 100 mg 100 mg PO BID #14 caps 02/15/25 capsule albuterol sulfate 90 mcg/actuation 2 puff inhalation Q6H PRN 09/05/25 aerosol inhaler shortness of breath or wheezing #8.5 grams doxycycline hyclate 100 mg capsule 100 mg PO BID #10 caps 09/05/25 Allergies Allergy/AdvReac Type Severity Reaction Status Date / Time Penicillins (PENICILLINS) Allergy Unknown Anaphylaxis Verified 06/27/25 17:54 Review of Systems Review of Systems ROS Unobtainable: All systems reviewed & are unremarkable except as noted in HPI and below Patient History Medical History (Updated 09/05/25 @ 10:33 by Bay Carvalho DO) Nephrolithiasis Healthy adolescent Surgical History No history of previous surgery tobacco type: cigarettes and vaping alcohol intake frequency: holidays/special occasions only Exam Narrative Exam Narrative: GENERAL: [25] year old patient appears stated age. Well-developed patient, in mild distress. HEAD: Atraumatic. Normocephalic. EYES: Pupils equal round and reactive. Extraocular motions intact. No scleral icterus. No injection or drainage. ENT: Nose without bleeding, b/l purulent drainage. Throat without erythema, tonsillar hypertrophy or exudate. Airway patent. NECK: Trachea midline. Non tender CARDIOVASCULAR: Regular rate and rhythm without murmurs, gallops, or rubs. RESPIRATORY: Clear to auscultation. Breath sounds equal bilaterally. No wheezes, rales, or rhonchi. GASTROINTESTINAL: Abdomen soft, non-tender, nondistended. EXTREMITIES: No edema or joint tenderness. BACK: Nontender without deformity or crepitance. No flank tenderness. NEURO: AOx3. SKIN: No rash or erythema of visible areas Initial Vital Signs Initial Vital Signs: Vital Signs Temperature 98 F 09/05/25 08:08 Pulse Rate 98 H 09/05/25 08:08 Respiratory Rate 16 09/05/25 08:08 Blood Pressure 170/101 H 09/05/25 08:08 Pulse Oximetry 100 09/05/25 08:08 Oxygen Delivery Method Room Air 09/05/25 08:08 Course Orders Ordered: ED Orders 09/05/25 08:03 Covid-19 + FLU A/B + RSV - PCR Stat Vital Signs Vital signs: Vital Signs - 8 hr 09/05/25 08:08 09/05/25 08:11 09/05/25 08:30 Temperature 98 F Pulse Rate 98 H 99 H 95 H Respiratory Rate 16 Blood Pressure 170/101 H Pulse Oximetry 100 98 97 Oxygen Delivery Method Room Air 09/05/25 09:00 Temperature Pulse Rate 93 H Respiratory Rate Blood Pressure Pulse Oximetry 97 Oxygen Delivery Method MDM - URI/Sore Throat Lab Data Labs: Lab Results 09/05/25 Range/Units 08:03 SARS-CoV-2 (PCR) Negative (Negative) Influenza A (RT-PCR) Flu a negative (NEGATIVE) Influenza B (RT-PCR) Flu b negative (NEGATIVE) RSV (PCR) Negative (Negative) MDM Narrative Medical decision making narrative: All lab work, vital signs, nurse triage note, medication list, previous ER visits, and all imaging studies reviewed. Patient given doxycycline Tylenol ibuprofen and Zofran here. Differential diagnosis includes COVID flu RSV sinusitis strep throat bronchitis. DC home on doxycycline. Follow up PCP 1-2 weeks if no improvement in symptoms. Discharge Plan Departure Patient Disposition: Home Clinical Impression: Acute bacterial sinusitis Instructions: DI for Sinusitis Activity Restrictions/Additional Instructions: Return with new or worsening symptoms. Take your medicines as directed. Follow up PCP 1-2 weeks if no improvement in symptoms. Prescriptions: New doxycycline hyclate 100 mg capsule 100 mg PO BID Qty: 10 0RF albuterol sulfate 90 mcg/actuation HFA aerosol inhaler 2 puff inhalation Q6H PRN (Reason: shortness of breath or wheezing) Qty: 8.5 0RF No Action nitrofurantoin monohyd/m-cryst [Macrobid] 100 mg capsule 100 mg PO BID Qty: 14 0RF Rx Instructions: must administer with a meal/food albuterol sulfate 90 mcg/actuation HFA aerosol inhaler 2 puff INHALATION Q4-6H PRN (Reason: shortness of breath or wheezing) Qty: 8.5 0RF albuterol sulfate 90 mcg/actuation aerosol powdr breath activated 2 inh inhalation Q4-6H PRN (Reason: shortness of breath or wheezing) Qty: 1 0RF meclizine 12.5 mg tablet 12.5 mg PO TID PRN (Reason: dizziness) Qty: 20 0RF diltiazem HCl 30 mg tablet 30 mg PO TID Qty: 20 0RF doxycycline monohydrate 100 mg capsule 100 mg PO BID Qty: 14 0RF ondansetron HCl [Zofran] 4 mg tablet 4 mg PO Q6-8H Qty: 7 0RF omeprazole 20 mg capsule,delayed release(DR/EC) 20 mg PO BID Qty: 60 0RF sucralfate [Carafate] 1 gram tablet 1 g PO TID PRN (Reason: heart burn) Qty: 60 0RF diltiazem HCl 30 mg tablet 30 mg PO TID Qty: 90 0RF diltiazem HCl 30 mg tablet 30 mg PO 3XD Referrals: Dai Vergara PA-C [Primary Care Provider, Medical] Stand Alone Forms: Patient Portal/API
[2025-09-05 10:51] VITALS: BP 155/83; PULSE 83; RESP 17; O2SAT 98
== END 2025-09-05 10:52 | disposition home or self-care (01) ==
PROVIDERS: Emergency Provider Family Medicine; PCP Physician Assistant
DX: J01.90 Acute sinusitis, unspecified (principal); B96.89 Other specified bacterial agents as the cause of diseases classified elsewhere
CPT/HCPCS: 87637; 99283

== ENCOUNTER 2025-09-20 07:31 | Emergency (ER) | payer OTHER, SELFPAY ==
[2025-09-20] VITALS (9 sets, daily range): BP systolic 145–182; BP diastolic 81–112; PULSE 79–116; RESP 18; TEMP 36.8; O2SAT 96–100; BMI 51.6
--- NOTE | 2025-09-20 07:57 | ED.EXTPRO ---
HPI - Extremity Problem General Chief complaint: Extremity Problem,Nontraumatic Stated complaint: Pain under right rib cage, going to right hip Time Seen by Provider: 09/20/25 07:52 Source: patient Mode of arrival: Ambulatory History of Present Illness HPI Narrative: Patient here for complaints of bruising and swelling to the right lower extremity. Also has had off and on right lower chest/right upper abdominal discomfort. Ongoing for the past 4 5 days. Had bruising that comes and goes in the right lower extremity. Patient has pictures on her phone to show. No known injury or trauma. No shortness of breath. No urinary complaints. Patient is not on any blood thinners. She does take that heels on for tachycardia. She did take her not tell them this morning. No prior history of blood clots in legs or lungs. No history anemia or thrombocytopenia. No family history of blood disorders/anemia or thrombocytopenia. Patient is not on any control medication or hormone replacement medication. Patient states she went to local urgent care this past weekend x-ray of the right lower extremity and chest x-ray which she was informed was unremarkable. Denies any exertional chest pain or shortness of breath. No history of heart attack strokes or diabetes. Related Data Home Medications ?Medication ?Instructions ?Recorded ?Confirmed diltiazem HCl 30 mg tablet 30 mg PO 3XD 03/04/25 03/04/25 Previous Rx's ?Medication ?Instructions ?Recorded ondansetron HCl 4 mg tablet 4 mg PO Q6-8H nausea #7 tabs 08/31/21 (Zofran) nitrofurantoin 100 mg PO BID #14 caps 11/19/21 monohydrate/macrocrystals 100 mg capsule (Macrobid) albuterol sulfate 90 mcg/actuation 2 puff inhalation Q4-6H PRN 04/13/22 aerosol inhaler shortness of breath or wheezing #8.5 grams albuterol sulfate 90 mcg/actuation 2 inh inhalation Q4-6H PRN 05/16/22 breath activated powder inhaler shortness of breath or wheezing #1 ea omeprazole 20 mg capsule,delayed 20 mg PO BID #60 caps 10/29/22 release sucralfate 1 gram tablet (Carafate) 1 g PO TID PRN heart burn #60 tabs 10/29/22 meclizine 12.5 mg tablet 12.5 mg PO TID PRN dizziness #20 04/19/23 tabs diltiazem HCl 30 mg tablet 30 mg PO TID #20 tabs 09/02/24 diltiazem HCl 30 mg tablet 30 mg PO TID #90 tabs 09/25/24 doxycycline monohydrate 100 mg 100 mg PO BID #14 caps 02/15/25 capsule albuterol sulfate 90 mcg/actuation 2 puff inhalation Q6H PRN 09/05/25 aerosol inhaler shortness of breath or wheezing #8.5 grams doxycycline hyclate 100 mg capsule 100 mg PO BID #10 caps 09/05/25 Allergies Allergy/AdvReac Type Severity Reaction Status Date / Time Penicillins (PENICILLINS) Allergy Unknown Anaphylaxis Verified 06/27/25 17:54 Review of Systems Review of Systems Narrative: GENERAL: Negative chills, fatigue, malaise, fever, sweats. HEENT: Negative sinus pain, ear pain, sore throat RESPIRATORY: Negative dyspnea, cough CARDIOVASCULAR: Positive chest pain, negative palpitations GASTROINTESTINAL: Negative vomiting, nausea, positive abdominal pain : Negative dysuria, frequency, hematuria MUSCULOSKELETAL: Positive muscle or bony pain SKIN: Negative rash, skin lesions, positive bruising NEUROLOGIC: Negative weakness, numbness ROS Unobtainable: All systems reviewed & are unremarkable except as noted in HPI and below Patient History Medical History (Updated 09/20/25 @ 10:37 by Chris Wheeler MD) Nephrolithiasis Healthy adolescent Surgical History No history of previous surgery tobacco type: cigarettes and vaping alcohol intake frequency: holidays/special occasions only Exam Narrative Exam Narrative: GENERAL: in no distress, not toxic not dyspneic HEAD: Normocephalic. EYES: Pupils equal round ENT: Mucous membranes moist. NECK: Trachea midline. CARDIOVASCULAR: Regular rate and rhythm RESPIRATORY: Clear to auscultation. Breath sounds equal bilaterally. No wheezes, rales, or rhonchi. There is reproducible right inframammary rib tenderness on palpation. No rash. GASTROINTESTINAL: Abdomen soft, mild right upper quadrant tenderness but no peritoneal signs. Bowel sounds are present. No guarding or rebound. No CVA tenderness. No bruising. EXTREMITIES: No gross deformities. Examination of right lower extremity. There is ecchymotic surface area right medial upper leg. Knee nontender.. No palpable cords negative Homans test negative Fu test. Foot warm soft pink brisk cap refills strong pedal pulse BACK: No flank tenderness. NEURO: AOx4. Clear speech SKIN: Warm and dry PSYCH: Not anxious, is cooperative Initial Vital Signs Initial Vital Signs: Vital Signs Temperature 98.3 F 09/20/25 07:47 Pulse Rate 99 H 09/20/25 07:47 Respiratory Rate 18 09/20/25 07:47 Blood Pressure 182/107 H 09/20/25 07:47 Pulse Oximetry 100 09/20/25 07:47 Oxygen Delivery Method Room Air 09/20/25 07:47 Course Orders Ordered: Discontinued Medications Sodium Chloride (Normal Saline 0.9%) 500 mls @ 1,000 mls/hr IV BOLUS ONE Stop: 09/20/25 08:39 Last Admin: 09/20/25 08:53 Dose: Not Given Documented By: SGF Vital Signs Vital signs: Vital Signs - 8 hr 09/20/25 07:47 09/20/25 08:49 09/20/25 08:50 Temperature 98.3 F Pulse Rate 99 H 102 H Respiratory Rate 18 Blood Pressure 182/107 H 178/101 H Pulse Oximetry 100 97 Oxygen Delivery Method Room Air 09/20/25 08:50 09/20/25 09:00 09/20/25 09:00 Temperature Pulse Rate 102 H 102 H Respiratory Rate Blood Pressure 179/112 H Pulse Oximetry 98 98 Oxygen Delivery Method 09/20/25 09:02 09/20/25 09:02 Temperature Pulse Rate 93 H Respiratory Rate Blood Pressure 157/86 H Pulse Oximetry 97 Oxygen Delivery Method MDM - Extremity (Nontraumatic) Lab Data 09/20/25 08:17 09/20/25 08:17 Labs: Lab Results 09/20/25 09/20/25 Range/Units 08:17 08:20 WBC 7.2 (4.5-11.0) X10^3/uL RBC 5.50 H (4.0-5.2) X10^6/uL Hgb 14.8 (12.0-16.0) g/dL Hct 43.6 (36-46) % MCV 79.3 L (80-100) fL MCH 26.9 (26-34) PG MCHC 34.0 (30-36) % RDW 14.0 (11.6-14.8) % Plt Count 334 (150-400) X10^3/uL Neut % (Auto) 67.5 (50-75) % Lymph % (Auto) 23.0 L (25-40) % Atkinson % (Auto) 5.7 (3-14) % Eos % (Auto) 2.9 (2-4) % Baso % (Auto) 0.9 (0-2) % Neut # (Auto) 4900 (0261-1141) /uL Lymph # (Auto) 1700 (2427-0720) /uL Atkinson # (Auto) 400 (0-900) /uL Eos # (Auto) 200 (0-450) /uL Baso # (Auto) 100 (0-100) /uL PT 12.8 H (9.4-12.5) SECONDS INR 1.1 (0.9-1.3) APTT 30 (25.1-36.5) SECONDS D-Dimer 299 (<500) ng/ml Sodium 140 (137-145) mmol/L Potassium 3.6 (3.4-5.1) mmol/L Chloride 107 (98-107) mmol/L Carbon Dioxide 24 (22-32) mmol/L BUN 8 (7-17) mg/dL Creatinine 0.87 (0.52-1.04) mg/dL Estimated GFR > 60 (>60) mL/min BUN/Creatinine Ratio 9.2 (6-22) Glucose 118 H (70-99) mg/dL Calcium 9.1 (8.4-10.2) mg/dL Magnesium 1.8 (1.6-2.3) mg/dL Total Bilirubin 0.5 (0.2-1.3) mg/dL AST 28 (14-36) IU/L ALT 29 (<35) IU/L Alkaline Phosphatase 85 (38-126) U/L Total Protein 8.1 (6.3-8.2) g/dL Albumin 4.3 (3.5-5.0) g/dL Globulin 3.8 (1.7-4.1) g/dL Albumin/Globulin Ratio 1.1 (1.0-2.8) Serum , Qual Negative (Negative) Urine Color Brown Urine Appearance Cloudy Urine pH 5.5 (4.5-8.0) Ur Specific [place] >=1.030 H (1.000-1.035) Urine Protein 1+ H (Negative) Urine Glucose (UA) Negative (Negative) g/dL Urine Ketones Trace H (NEGATIVE) Urine Occult Blood 3+ H (Negative) Urine Nitrate Positive H (Negative) Urine Bilirubin 1+ H (NEGATIVE) Ur Bilirubin Confirm Negative (Negative) Urine Urobilinogen 1.0 (0.2) E.U./dL Ur Leukocyte Esterase Trace H (NEGATIVE) Urine RBC >100/hpf H (0-5/HPF) Urine WBC 1-5/hpf (0-5/HPF) Ur Squamous Epith Cells 5-10 /hpf H (0-5/HPF) Urine Bacteria Occasional (0-1) (None) Ur Culture Indicated? Specimen cultured Vol Urine Centrifuged 10ml (spun) Point of Care Testing Test Results Negative Imaging Data CT chest abdomen pelvis: Radiologist's Impression: [address] [address] [address] Scan Report Signed Patient: Janneth Tang MR#: [id number] : 2000 Acct:[id number] Age/Sex: 25 / F Date of Service: 09/20/25 Loc: ED Accession Number: [id number] Procedure: CT chest abd pel wo con Ordering Provider: Chris Wheeler MD PROCEDURE: CT CHEST ABD PEL WO CON INDICATIONS: Right side pain TECHNIQUE: After the administration of oral contrast, 5 mm thick sections acquired from the lung apices to the symphysis pubis. 5 mm thick coronal and sagittal reformats acquired, with additional 7 mm coronal MIP reformats through the lungs. For radiation dose reduction, the following was used: automated exposure control, adjustment of mA and/or kV according to patient size. COMPARISON: None. FINDINGS: Image quality: Diagnostic. CHEST: Lower Neck: No enlarged lymph nodes. Thyroid: No thyroid nodules which require sonographic follow up, per consensus guidelines. Axillae: No enlarged lymph nodes. Chest Wall: Unremarkable. Bones: Unremarkable. Lungs and Pleura: No pneumothorax or pleural effusions. No consolidation or suspicious nodules. Partially calcified lateral right lower lobe granuloma on image 193. Heart: Heart size is normal. No pericardial effusion. Thoracic Vessels: The aorta and pulmonary arteries demonstrate normal size. Mediastinum and Lili: No enlarged lymph nodes. Esophagus: No wall thickening. No hiatal hernia. ABDOMEN: Liver: No solid mass. Gallbladder: No radiopaque gallstones or wall thickening. Biliary ducts: No biliary dilation. Pancreas: No ductal dilation. Spleen: Size is within normal limits. Adrenal Glands: 1 cm left adrenal nodule measuring 5.9 Hounsfield units on image 95. Normal right adrenal gland. Otherwise unremarkable left adrenal gland. Kidneys and Ureters: No hydronephrosis. No solid mass. No complex renal cystic lesion which requires follow up. Stomach and Bowel: Normal colonic caliber, without significant wall thickening. Colon diverticulosis is noted without inflammatory changes concerning for acute diverticulitis. Normal appendix. Peritoneum: No abnormal intraperitoneal fluid. No free air. Ventral Wall: No hernia. Abdominal Nodes: No retroperitoneal or mesenteric adenopathy by size criteria. Vessels: Aorta and inferior vena cava are normal in size. PELVIS: Pelvic Organs: Unremarkable. Bladder: Unremarkable. Pelvic Nodes: No enlarged lymph nodes. Miscellaneous: No inguinal hernias are seen. Bones: No aggressive osseous abnormality. IMPRESSION: No acute abnormality in the chest, abdomen or pelvis. Diverticulosis. Normal appendix. No inflammation. Incidental 1 cm left adrenal adenoma. Dictated by: Yojana Hampton M.D. on 09/20/2025 at 9:22 Approved by: Yojana Hampton M.D. on 09/20/2025 at 9:32 US - DVT: Radiologist's Impression: [place] [address] Ultrasound Report Signed Patient: Janneth Tang MR#: [id number] : 2000 Acct:[id number] Age/Sex: 25 / F Date of Service: 09/20/25 Loc: ED Accession Number: [id number] Procedure: US perip venous low extrem rt Ordering Provider: Chris Wheeler MD PROCEDURE: US PERIP VENOUS LOW EXTREM RT INDICATIONS: Pain/swelling TECHNIQUE: Real-time imaging, as well as color and pulse Doppler interrogation, were performed of the lower extremity deep veins from the inguinal ligament to the popliteal fossa, with documentation of the visualized calf veins. COMPARISON: None. FINDINGS: The common femoral, femoral, popliteal, and the visualized calf veins are normally compressible, and free of intraluminal thrombus. Color and pulse Doppler demonstrate normal phasic intraluminal flow. There is normal augmentation response to distal compression maneuver. IMPRESSION: No findings of lower extremity deep venous thrombosis. Dictated by: Sarthak Katz M.D. on 09/20/2025 at 8:52 Approved by: Sarthak Katz M.D. on 09/20/2025 at 8:52 [facility] Narrative Medical decision making narrative: Patient here for complaints of bruising and swelling to the right lower extremity. Also has had off and on right lower chest/right upper abdominal discomfort. Ongoing for the past 4 5 days. Had bruising that comes and goes in the right lower extremity. Patient has pictures on her phone to show. No known injury or trauma. No shortness of breath. No urinary complaints. Patient is not on any blood thinners. She does take that heels on for tachycardia. She did take her not tell them this morning. No prior history of blood clots in legs or lungs. No history anemia or thrombocytopenia. No family history of blood disorders/anemia or thrombocytopenia. Patient is not on any control medication or hormone replacement medication. Patient states she went to local urgent care this past weekend x-ray of the right lower extremity and chest x-ray which she was informed was unremarkable. Denies any exertional chest pain or shortness of breath. No history of heart attack strokes or diabetes. MDM After history and exam, CBC CMP PT INR PTT ultrasound right leg CT chest abdomen pelvis normal saline Differential considered: Includes but not limited to thrombocytopenia DVT SVT pulmonary embolism Medical records reviewed: No recent visit for this complaint Lab Test results independently reviewed as above. Pertinent findings: WBC 7.2 hemoglobin 14.8 hematocrit 43.6 platelets 334 INR 1.1 D-dimer 299 Imaging studies independently reviewed: CT chest abdomen pelvis no acute finding. Ultrasound right leg no DVT. Consultations: None indicated at this time. Re-evaluations: 8:50 a.m.. Patient has refused CT imaging with IV contrast. She states the IV contrast causes her heart rate to go higher but she does not know high but it feels like her heart is jumping out of her chest. I asked her if they have ever offered her Benadryl with IV contrast she says no. She does not want CT imaging with IV contrast. I did review with her I have ordered D-dimer and if positive does not necessarily mean she has a blood clot however does indicate will need imaging. Reviewed with her with her bruising and discomfort in the chest, differential/considerations are blood clots in legs and lungs and CT imaging would be needed for chest or V/Q scan which also has contrast material 10:35 a.m.. Reviewed results with patient. Blood pressure has improved 145/84. She appears to be more relaxed. D-dimer negative no CT with contrast indicated. She does have family doctor to follow up with next month. She will call office to inform of her visit here today to see if office appointment can be moved up. No new medications indicated. Source of her discomfort uncertain at this time but reassuring as laboratory studies are reassuring today. She may continue appropriately for follow up with primary care Discussion: Appropriate for discharge home. Exam is reassuring laboratory studies reassuring. Chest pain is reproducible in the right side. Laboratory studies reassuring and follow up with primary care. Diagnosis: Chest pain/leg pain Discharge Plan Departure Patient Disposition: Home Clinical Impression: Acute chest wall pain, Leg pain, right Instructions: DI for Atypical Chest Pain, DI for Leg Pain Activity Restrictions/Additional Instructions: Your exam and laboratory studies and imaging studies are reassuring. Please to see your family doctor for re-evaluation. No new medications are indicated at this time. Continue your home medications. Return if worse if any questions or concerns Prescriptions: No Action nitrofurantoin monohyd/m-cryst [Macrobid] 100 mg capsule 100 mg PO BID Qty: 14 0RF Rx Instructions: must administer with a meal/food albuterol sulfate 90 mcg/actuation HFA aerosol inhaler 2 puff INHALATION Q4-6H PRN (Reason: shortness of breath or wheezing) Qty: 8.5 0RF albuterol sulfate 90 mcg/actuation aerosol powdr breath activated 2 inh inhalation Q4-6H PRN (Reason: shortness of breath or wheezing) Qty: 1 0RF meclizine 12.5 mg tablet 12.5 mg PO TID PRN (Reason: dizziness) Qty: 20 0RF diltiazem HCl 30 mg tablet 30 mg PO TID Qty: 20 0RF doxycycline monohydrate 100 mg capsule 100 mg PO BID Qty: 14 0RF doxycycline hyclate 100 mg capsule 100 mg PO BID Qty: 10 0RF albuterol sulfate 90 mcg/actuation HFA aerosol inhaler 2 puff inhalation Q6H PRN (Reason: shortness of breath or wheezing) Qty: 8.5 0RF ondansetron HCl [Zofran] 4 mg tablet 4 mg PO Q6-8H Qty: 7 0RF omeprazole 20 mg capsule,delayed release(DR/EC) 20 mg PO BID Qty: 60 0RF sucralfate [Carafate] 1 gram tablet 1 g PO TID PRN (Reason: heart burn) Qty: 60 0RF diltiazem HCl 30 mg tablet 30 mg PO TID Qty: 90 0RF diltiazem HCl 30 mg tablet 30 mg PO 3XD Referrals: Dai Vergara PA-C [Primary Care Provider, Medical] Stand Alone Forms: Patient Portal/API
--- NOTE | 2025-09-20 08:03 | DI.US.S_ITS ---
PROCEDURE: US PERIPH VENOUS LOW EXTREM RT INDICATIONS: Pain/swelling TECHNIQUE: Real-time imaging, as well as color and pulse Doppler interrogation, were performed of the lower extremity deep veins from the inguinal ligament to the popliteal fossa, with documentation of the visualized calf veins. COMPARISON: None. FINDINGS: The common femoral, femoral, popliteal, and the visualized calf veins are normally compressible, and free of intraluminal thrombus. Color and pulse Doppler demonstrate normal phasic intraluminal flow. There is normal augmentation response to distal compression maneuver. IMPRESSION: No findings of lower extremity deep venous thrombosis. Dictated by: Sarthak Katz M.D. on 09/20/2025 at 8:52 Approved by: Sarthak Katz M.D. on 09/20/2025 at 8:52
[2025-09-20 08:26] LABS: Add Manual Diff / Slide Review NO; Hematocrit 43.6 % (36-46); Hemoglobin 14.8 g/dL (12.0-16.0); Lymphocytes Absolute Auto 1700 /uL (1100-4500); Mean Corpuscular HGB Conc 34.0 % (30-36); Mean Corpuscular Hemoglobin 26.9 PG (26-34); Mean Corpuscular Volume 79.3 fL (80-100); Platelet Count 334 X10^3/uL (150-400)
--- NOTE | 2025-09-20 08:29 | PC.NURSE ---
Pt able to ambulate on own with steady gait and full weight bearing. States lump on leg now and pain associated with this
[2025-09-20 08:32] LABS: INR 1.1 (0.9-1.3); Prothrombin Time 12.8 SECONDS (9.4-12.5)
[2025-09-20 08:35] LABS: PTT Partial Thromboplastin Tim 30 SECONDS (25.1-36.5)
[2025-09-20 08:37] LABS: Appearance Urine UA CLOUDY; Bilirubin Urine UA 1+ (NEGATIVE); Color Urine UA BROWN; Glucose Urine UA NEGATIVE (Negative); Ketones Urine UA TRACE (NEGATIVE); Leukocyte Esterase Urine UA TRACE (NEGATIVE); Nitrite Urine UA POSITIVE (Negative); Occult Blood Urine UA 3+ (Negative); Protein Urine UA 1+ (Negative); Specific Gravity Urine UA >=1.030 (1.000-1.035); Urobilinogen Urine UA 1.0 E.U./dL (0.2)
[2025-09-20 08:37] LABS: Alanine Aminotransferase 29 IU/L (<35); Albumin 4.3 g/dL (3.5-5.0); Albumin Globulin Ratio 1.1 (1.0-2.8); Alkaline Phosphatase 85 U/L (38-126); Blood Urea Nitrogen 8 mg/dL (7-17); Calcium 9.1 mg/dL (8.4-10.2); Carbon Dioxide 24 mmol/L (22-32); Chloride 107 mmol/L (98-107); Estimated Glomerular Filt Rate > 60 mL/min (>60); Globulin 3.8 g/dL (1.7-4.1); Glucose 118 mg/dL (70-99); HEMOLYSIS < 15 (0-50); Magnesium 1.8 mg/dL (1.6-2.3); Potassium 3.6 mmol/L (3.4-5.1); Sodium 140 mmol/L (137-145); Total Protein 8.1 g/dL (6.3-8.2)
[2025-09-20 08:39] LABS: pH Urine UA 5.5 (4.5-8.0)
[2025-09-20 08:42] LABS: Pregnancy Test Serum,Qual Negative (Negative)
[2025-09-20 08:46] LABS: Ictotest Urine Negative (Negative)
[2025-09-20 08:47] LABS: Culture Indicated Urine Specimen Cultured
--- NOTE | 2025-09-20 08:54 | PC.NURSE ---
Pt not wanting to do CT with contrast due to Pt have a reaction to contrast that has made her HR increase in the past. Denies wanting any Normal Saline fluid bolus.
--- NOTE | 2025-09-20 09:06 | DI.CT.S_ITS ---
PROCEDURE: CT CHEST ABD PEL WO CON INDICATIONS: Right side pain TECHNIQUE: After the administration of oral contrast, 5 mm thick sections acquired from the lung apices to the symphysis pubis. 5 mm thick coronal and sagittal reformats acquired, with additional 7 mm coronal MIP reformats through the lungs. For radiation dose reduction, the following was used: automated exposure control, adjustment of mA and/or kV according to patient size. COMPARISON: None. FINDINGS: Image quality: Diagnostic. CHEST: Lower Neck: No enlarged lymph nodes. Thyroid: No thyroid nodules which require sonographic follow up, per consensus guidelines. Axillae: No enlarged lymph nodes. Chest Wall: Unremarkable. Bones: Unremarkable. Lungs and Pleura: No pneumothorax or pleural effusions. No consolidation or suspicious nodules. Partially calcified lateral right lower lobe granuloma on image 193. Heart: Heart size is normal. No pericardial effusion. Thoracic Vessels: The aorta and pulmonary arteries demonstrate normal size. Mediastinum and Lili: No enlarged lymph nodes. Esophagus: No wall thickening. No hiatal hernia. ABDOMEN: Liver: No solid mass. Gallbladder: No radiopaque gallstones or wall thickening. Biliary ducts: No biliary dilation. Pancreas: No ductal dilation. Spleen: Size is within normal limits. Adrenal Glands: 1 cm left adrenal nodule measuring 5.9 Hounsfield units on image 95. Normal right adrenal gland. Otherwise unremarkable left adrenal gland. Kidneys and Ureters: No hydronephrosis. No solid mass. No complex renal cystic lesion which requires follow up. Stomach and Bowel: Normal colonic caliber, without significant wall thickening. Colon diverticulosis is noted without inflammatory changes concerning for acute diverticulitis. Normal appendix. Peritoneum: No abnormal intraperitoneal fluid. No free air. Ventral Wall: No hernia. Abdominal Nodes: No retroperitoneal or mesenteric adenopathy by size criteria. Vessels: Aorta and inferior vena cava are normal in size. PELVIS: Pelvic Organs: Unremarkable. Bladder: Unremarkable. Pelvic Nodes: No enlarged lymph nodes. Miscellaneous: No inguinal hernias are seen. Bones: No aggressive osseous abnormality. IMPRESSION: No acute abnormality in the chest, abdomen or pelvis. Diverticulosis. Normal appendix. No inflammation. Incidental 1 cm left adrenal adenoma. Dictated by: Yojana Hampton M.D. on 09/20/2025 at 9:22 Approved by: Yojana Hampton M.D. on 09/20/2025 at 9:32
== END 2025-09-20 10:43 | disposition home or self-care (01) ==
PROVIDERS: Emergency Provider Emergency Medicine; PCP Physician Assistant
DX: R07.89 Other chest pain (principal); M79.604 Pain in right leg
CPT/HCPCS: 36415; 71250; 74176; 80053; 81001; 81025; 83735; 84703; 85025; 85379; 85610; 85730; 87086; 93971; 99284; J7040

== ENCOUNTER 2025-11-04 08:29 | Emergency (ER) | payer OTHER, SELFPAY ==
[2025-11-04] VITALS (8 sets, daily range): BP systolic 137–190; BP diastolic 83–105; PULSE 86–101; RESP 12–23; TEMP 37.7; O2SAT 97–100; BMI 49.8
--- NOTE | 2025-11-04 09:00 | DI.CT.S_ITS ---
PROCEDURE: CT HEAD/BRAIN WO CON INDICATIONS: headache, h/o pseudotumor cerebri TECHNIQUE: Noncontrast 4.5 mm thick angled axial sections acquired from the foramen magnum to the vertex, with coronal and sagittal reformats. For radiation dose reduction, the following was used: automated exposure control, adjustment of mA and/or kV according to patient size. COMPARISON: [facility], CT, CT HEAD/BRAIN WO CON, 03/18/2023, 12:48. FINDINGS: Image quality: Diagnostic. CSF spaces: Basal cisterns are patent. Stable size of a likely benign arachnoid cyst along the left superior parietal convexity. Ventricles are normal in size and shape. Brain: No midline shift. No intracranial mass effect or hemorrhage. Stable appearance of a left choroid plexus 7 mm lipoma. Zheng-white matter interface is normal. Skull and face: Calvarium and visualized facial bones are intact, without suspicious lesions. Sinuses: Visualized sinuses and mastoids are clear. IMPRESSION: No acute intracranial pathology. Stable appearance of the left parietal convexity likely benign arachnoid cyst and left choroid plexus lipoma. Dictated by: Chas Tineo M.D. on 11/04/2025 at 8:31 Approved by: Chas Tineo M.D. on 11/04/2025 at 8:34
--- NOTE | 2025-11-04 09:02 | ED.HA ---
HPI - Headache General Chief Complaint: Headache Stated Complaint: DX IAH-felt/heard pop in head yest-headache today Time Seen by Provider: 11/04/25 09:02 Mode of arrival: Ambulatory History of Present Illness HPI Narrative: This is a 25-year-old white female with history of pseudotumor cerebri who presents to the emergency room with 1 day of a right frontal headache. There is no visual changes no unilateral weakness or numbness no neck pain no nuchal rigidity. Patient states she just wanted to come ?to get it checked out?. In the emergency room patient alert awake and in no distress Related Data Home Medications ?Medication ?Instructions ?Recorded ?Confirmed diltiazem HCl 30 mg tablet 30 mg PO 3XD 03/04/25 03/04/25 Previous Rx's ?Medication ?Instructions ?Recorded ondansetron HCl 4 mg tablet 4 mg PO Q6-8H nausea #7 tabs 08/31/21 (Zofran) nitrofurantoin 100 mg PO BID #14 caps 11/19/21 monohydrate/macrocrystals 100 mg capsule (Macrobid) albuterol sulfate 90 mcg/actuation 2 puff inhalation Q4-6H PRN 04/13/22 aerosol inhaler shortness of breath or wheezing #8.5 grams albuterol sulfate 90 mcg/actuation 2 inh inhalation Q4-6H PRN 05/16/22 breath activated powder inhaler shortness of breath or wheezing #1 ea omeprazole 20 mg capsule,delayed 20 mg PO BID #60 caps 10/29/22 release sucralfate 1 gram tablet (Carafate) 1 g PO TID PRN heart burn #60 tabs 10/29/22 meclizine 12.5 mg tablet 12.5 mg PO TID PRN dizziness #20 03/18/23 tabs diltiazem HCl 30 mg tablet 30 mg PO TID #20 tabs 09/02/24 diltiazem HCl 30 mg tablet 30 mg PO TID #90 tabs 09/25/24 doxycycline monohydrate 100 mg 100 mg PO BID #14 caps 02/15/25 capsule albuterol sulfate 90 mcg/actuation 2 puff inhalation Q6H PRN 09/05/25 aerosol inhaler shortness of breath or wheezing #8.5 grams doxycycline hyclate 100 mg capsule 100 mg PO BID #10 caps 09/05/25 Allergies Allergy/AdvReac Type Severity Reaction Status Date / Time Penicillins (PENICILLINS) Allergy Unknown Anaphylaxis Verified 11/04/25 08:47 Review of Systems Constitutional Constitutional: Denies chills, Denies fatigue, Denies fever(s), Denies frequent falls, Denies lethargy and Denies weakness Eyes Eyes: Denies change in vision, Denies eye discharge, Denies irritation and Denies loss of vision ENT Ears, Nose, Mouth, and Throat: Denies change in voice, Denies dizziness, Denies neck pain, Denies sore throat and Denies throat swelling Cardiovascular Cardiovascular: Denies chest pain, Denies irregular heart rhythm, Denies lightheadedness, Denies palpitations, Denies dyspnea, Denies dyspnea on exertion and Denies orthopnea Respiratory Respiratory: Denies cough, Denies dyspnea, Denies dyspnea on exertion and Denies wheezing Gastrointestinal Gastrointestinal: Denies abdominal pain, Denies change in bowel habits, Denies diarrhea, Denies nausea and Denies vomiting Musculoskeletal Musculoskeletal: Denies neck pain and Denies numbness Integumentary/Breasts Skin/Breast: Denies pruritus, Denies erythema, Denies rash and Denies wounds Neurologic Neurologic: Denies behavioral changes, Denies confusion, Denies dizziness, Denies frequent falls, Denies loss of vision, Denies numbness and Denies weakness Psychiatric Psychiatric: Denies anxiety, Denies behavioral changes, Denies confusion, Denies depression, Denies homicidal ideation and Denies suicidal ideation Endocrine Endocrine: Denies fatigue, Denies flushing and Denies palpitations Hematologic/Lymphatic Hematologic/Lymphatic: Denies easy bruising Allergic/Immunologic Allergic/Immunologic: Denies urticaria, Denies throat swelling and Denies wheezing Patient History Medical History (Updated 11/04/25 @ 09:56 by Merrill Russ MD) Nephrolithiasis Healthy adolescent Surgical History No history of previous surgery Social History Smoking Status: Former smoker Smoking Status: Former smoker tobacco type: cigarettes and vaping alcohol intake frequency: holidays/special occasions only Exam Initial Vital Signs Initial Vital Signs: Vital Signs Pulse Rate 89 11/04/25 08:46 Respiratory Rate 15 11/04/25 08:46 Pulse Oximetry 100 11/04/25 08:46 Const General: cooperative HENAR Head: normocephalic and atraumatic Ears: external ears normal and TM's normal bilaterally Nose: external nose normal and No nasal discharge Face and sinus: sinuses nontender, face symmetric, no sinus tenderness and No dry mucous membranes Mouth: oral mucosae normal and moist mucous membranes Teeth and gingiva: dentition normal Throat: tonsils normal and uvula midline Eyes Eyelids: eyelids normal Conjunctivae: conjunctivae normal Sclera: sclerae normal Pupils: PERRL EOM: EOM intact bilaterally Neck Neck: normal visual inspection, trachea midline, No lymphadenopathy, No midline deformity and No JVD Lymphatic: No lymphedema Chest Chest: normal inspection of the chest Resp Effort & Inspection: normal respiratory effort, able to speak in complete sentences, no respiratory distress and no use of accessory muscles Auscultation: clear to auscultation bilaterally, no rales, no rhonchi and no wheezes Cardio Rate: regular rate Rhythm: regular rhythm Heart Sounds: no click, no gallops, no murmurs and no rubs Pulses: normal peripheral pulses GI Inspection: non-distended Palpation: soft, no hepatosplenomegaly, No guarding, No pulsatile mass and No tender Auscultation: normal bowel sounds Back/Spine/Pelvis Back: No CVA tenderness Cervical Spine: cervical ROM normal and No pain with cervical ROM Thoracic/Lumbar Spine: thoracic and lumbar spine normal to inspection Skin General: no rashes or lesions noted, No jaundice and No petechiae Neuro General: patient alert, patient oriented x3, gait normal and no focal motor deficits Speech: speech normal Extrem General: full ROM, no clubbing, cyanosis or edema, no pedal edema and no calf tenderness Psych Appearance: well kempt Mental Status: mental status grossly normal Attitude: cooperative Thought Content: normal and suicidality Judgment: judgment good Course Orders Ordered: ED Orders 11/04/25 09:00 CT head/brain wo con Stat Vital Signs Vital signs: Vital Signs - 8 hr 11/04/25 08:46 11/04/25 08:47 Temperature 99.9 F H Pulse Rate 89 97 H Respiratory Rate 15 18 Blood Pressure 190/105 H Pulse Oximetry 100 99 Oxygen Delivery Method Room Air MDM - Headache MDM Narrative Medical decision making narrative: The patient had a CT of the head which review the chronic stable left parietal convexity question arachnoid cyst or other chronic lesion. At this point the patient is stable to go home. Patients blood pressure was initially elevated but it has come down. Patient will be referred to her primary care doctor for further evaluation and treatment. Differential diagnosis subarachnoid hemorrhage headache skull fracture Discharge Plan Departure Patient Disposition: Home Clinical Impression: Headache Instructions: DI for Headache Prescriptions: No Action nitrofurantoin monohyd/m-cryst [Macrobid] 100 mg capsule 100 mg PO BID Qty: 14 0RF Rx Instructions: must administer with a meal/food albuterol sulfate 90 mcg/actuation HFA aerosol inhaler 2 puff INHALATION Q4-6H PRN (Reason: shortness of breath or wheezing) Qty: 8.5 0RF albuterol sulfate 90 mcg/actuation aerosol powdr breath activated 2 inh inhalation Q4-6H PRN (Reason: shortness of breath or wheezing) Qty: 1 0RF meclizine 12.5 mg tablet 12.5 mg PO TID PRN (Reason: dizziness) Qty: 20 0RF diltiazem HCl 30 mg tablet 30 mg PO TID Qty: 20 0RF doxycycline monohydrate 100 mg capsule 100 mg PO BID Qty: 14 0RF doxycycline hyclate 100 mg capsule 100 mg PO BID Qty: 10 0RF albuterol sulfate 90 mcg/actuation HFA aerosol inhaler 2 puff inhalation Q6H PRN (Reason: shortness of breath or wheezing) Qty: 8.5 0RF ondansetron HCl [Zofran] 4 mg tablet 4 mg PO Q6-8H Qty: 7 0RF omeprazole 20 mg capsule,delayed release(DR/EC) 20 mg PO BID Qty: 60 0RF sucralfate [Carafate] 1 gram tablet 1 g PO TID PRN (Reason: heart burn) Qty: 60 0RF diltiazem HCl 30 mg tablet 30 mg PO TID Qty: 90 0RF diltiazem HCl 30 mg tablet 30 mg PO 3XD Referrals: Dai Vergara PA-C [Primary Care Provider, Medical] - 3-5 days Stand Alone Forms: Patient Portal/API
== END 2025-11-04 10:06 | disposition home or self-care (01) ==
PROVIDERS: Emergency Provider Emergency Medicine; PCP Physician Assistant
DX: R51.9 Headache, unspecified (principal)
CPT/HCPCS: 70450; 99281; 99284

== ENCOUNTER 2025-11-16 10:20 | Emergency (ER) | payer OTHER, SELFPAY ==
[2025-11-16 10:25] VITALS: BP 164/116; PULSE 113; RESP 15; TEMP 37; O2SAT 96
--- NOTE | 2025-11-16 10:35 | ED.LOWEXIN ---
HPI - Extremity Injury (Lower) General Chief Complaint: Extremity Injury, Lower Stated Complaint: r leg pain with cast- seen by [facility] Time Seen by Provider: 11/16/25 10:31 Mode of arrival: Wheelchair History of Present Illness HPI Narrative: Patient is a 25-year-old female presents today with right ankle sprain. She was seen evaluated yesterday at [place] she reports that she has a torn ligament with fluid in her joint. She is splinted in fiberglass having increasing pain. She says that she can not take Tylenol or ibuprofen due to her tachycardia. Does not sound like she was given pain meds. Related Data Home Medications ?Medication ?Instructions ?Recorded ?Confirmed diltiazem HCl 30 mg tablet 30 mg PO 3XD 03/04/25 03/04/25 Previous Rx's ?Medication ?Instructions ?Recorded ondansetron HCl 4 mg tablet 4 mg PO Q6-8H nausea #7 tabs 08/31/21 (Zofran) nitrofurantoin 100 mg PO BID #14 caps 11/19/21 monohydrate/macrocrystals 100 mg capsule (Macrobid) albuterol sulfate 90 mcg/actuation 2 puff inhalation Q4-6H PRN 04/13/22 aerosol inhaler shortness of breath or wheezing #8.5 grams albuterol sulfate 90 mcg/actuation 2 inh inhalation Q4-6H PRN 05/16/22 breath activated powder inhaler shortness of breath or wheezing #1 ea omeprazole 20 mg capsule,delayed 20 mg PO BID #60 caps 10/29/22 release sucralfate 1 gram tablet (Carafate) 1 g PO TID PRN heart burn #60 tabs 10/29/22 meclizine 12.5 mg tablet 12.5 mg PO TID PRN dizziness #20 03/18/23 tabs diltiazem HCl 30 mg tablet 30 mg PO TID #20 tabs 09/02/24 diltiazem HCl 30 mg tablet 30 mg PO TID #90 tabs 09/25/24 doxycycline monohydrate 100 mg 100 mg PO BID #14 caps 02/15/25 capsule albuterol sulfate 90 mcg/actuation 2 puff inhalation Q6H PRN 09/05/25 aerosol inhaler shortness of breath or wheezing #8.5 grams doxycycline hyclate 100 mg capsule 100 mg PO BID #10 caps 09/05/25 Allergies Allergy/AdvReac Type Severity Reaction Status Date / Time Penicillins (PENICILLINS) Allergy Unknown Anaphylaxis Verified 11/16/25 10:25 Patient History Medical History (Updated 11/16/25 @ 10:47 by Amanda Salcido DO) Nephrolithiasis Healthy adolescent Surgical History No history of previous surgery tobacco type: cigarettes and vaping alcohol intake frequency: holidays/special occasions only Exam Initial Vital Signs Initial Vital Signs: Vital Signs Temperature 98.6 F 11/16/25 10:25 Pulse Rate 113 H 11/16/25 10:25 Respiratory Rate 15 11/16/25 10:25 Blood Pressure 164/116 H 11/16/25 10:25 Pulse Oximetry 96 11/16/25 10:25 Oxygen Delivery Method Room Air 11/16/25 10:25 GENERAL: Well-appearing, well-nourished and in no acute distress. CARDIOVASCULAR: peripheral pulses in tact, cap refill <2 sec RESPIRATORY: No respiratory distress, speaks in full sentences without difficulty EXTREMITIES: Normal range of motion, no clubbing or edema. Neurovascularly intact Right lower extremity Farhan wrap with fiberglass able to move toes distal pedal pulse intact NEUROLOGICAL: Cranial nerves II through XII grossly intact. Normal gait and speech. SKIN: Warm, dry, no petechiae, no rashes or lesions. Course Vital Signs Vital signs: Vital Signs - 8 hr 11/16/25 10:25 Temperature 98.6 F Pulse Rate 113 H Respiratory Rate 15 Blood Pressure 164/116 H Pulse Oximetry 96 Oxygen Delivery Method Room Air MDM - Extremity Injury (Lower) MDM Narrative Medical decision making narrative: Patient 25-year-old female who has a right ankle sprain having increasing pain, she reports that she texted her set painter and what pain medication she takes she says she can not take Tylenol or ibuprofen does not want any pain meds. At this time she has no evidence of compartment syndrome I do not think x-ray is needed. I have reviewed x-ray and records from [facility] x-ray reports no acute displaced fracture significant joint effusion is present. Patient has a appointment with PCP tomorrow in order to get a referral to Orthopedics. We discussed elevation ice and follow-up. Discharge Plan Departure Patient Disposition: Home Clinical Impression: Right ankle sprain Instructions: Ankle Sprain Activity Restrictions/Additional Instructions: *You have been diagnosed with right ankle sprain *What to do: At this time elevate and ice as often as possible. Please talk to your set painter about pain medication. *Continue to take medications as directed Tylenol 1000 mg every 6 hours if needed for [id number] pain *Follow up with your primary care provider in 2-3 days or call [phone] See your PCP tomorrow as scheduled get referral to Orthopedics may require outpatient MRI. *Return to ER if you should have or any new, worsening or concerning symptoms Prescriptions: No Action nitrofurantoin monohyd/m-cryst [Macrobid] 100 mg capsule 100 mg PO BID Qty: 14 0RF Rx Instructions: must administer with a meal/food albuterol sulfate 90 mcg/actuation HFA aerosol inhaler 2 puff INHALATION Q4-6H PRN (Reason: shortness of breath or wheezing) Qty: 8.5 0RF albuterol sulfate 90 mcg/actuation aerosol powdr breath activated 2 inh inhalation Q4-6H PRN (Reason: shortness of breath or wheezing) Qty: 1 0RF meclizine 12.5 mg tablet 12.5 mg PO TID PRN (Reason: dizziness) Qty: 20 0RF diltiazem HCl 30 mg tablet 30 mg PO TID Qty: 20 0RF doxycycline monohydrate 100 mg capsule 100 mg PO BID Qty: 14 0RF doxycycline hyclate 100 mg capsule 100 mg PO BID Qty: 10 0RF albuterol sulfate 90 mcg/actuation HFA aerosol inhaler 2 puff inhalation Q6H PRN (Reason: shortness of breath or wheezing) Qty: 8.5 0RF ondansetron HCl [Zofran] 4 mg tablet 4 mg PO Q6-8H Qty: 7 0RF omeprazole 20 mg capsule,delayed release(DR/EC) 20 mg PO BID Qty: 60 0RF sucralfate [Carafate] 1 gram tablet 1 g PO TID PRN (Reason: heart burn) Qty: 60 0RF diltiazem HCl 30 mg tablet 30 mg PO TID Qty: 90 0RF diltiazem HCl 30 mg tablet 30 mg PO 3XD Referrals: Julián Momin MD [Physician, Orthopedics] Dai Vergara PA-C [Primary Care Provider, Medical] Stand Alone Forms: Patient Portal/API
== END 2025-11-16 10:54 | disposition home or self-care (01) ==
PROVIDERS: Emergency Provider Emergency Medicine; PCP Physician Assistant
DX: S93.401A Sprain of unspecified ligament of right ankle, initial encounter (principal); X58.XXXA Exposure to other specified factors, initial encounter
CPT/HCPCS: 99281